=== PATIENT | female | born 1980 | race Caucasian/White ===

== ENCOUNTER 2018-07-23 16:08 | Outpatient (CLI) | payer MEDICAID, SELFPAY ==
[2018-07-23 16:50] LABS: Abs Immature Grans 0.01 k/cumm (0.0-0.09); Absolute Basophil Count 0.01 k/cumm (0.0-0.2); Absolute Eosinophil Count 0.07 k/cumm (0.0-0.7); Absolute Lymphocyte Count 2.35 k/cumm (1.2-3.4); Absolute Monocyte Count 0.52 k/cumm (0.11-0.7); Absolute Neutrophil Count 3.62 k/cumm (1.2-6.7); Basophils % 0.2; Eosinophils % 1.1; HCT 39.6 % (36.0-46.0); HGB 13.1 g/dL (12.0-15.5); Immature Grans % 0.2; Lymphocytes % 35.7; Mean Corp. HGB Concentration 33.1 g/dL (32.0-36.0); Mean Corpuscular Hemoglobin 28.5 pg (27.0-33.0); Mean Corpuscular Volume 86.1 fL (80-95); Mean Platelet Volume 11.1 fL (8.0-11.0); Monocytes % 7.9; Neutrophils % 54.9; Platelet Count 229 x1000/uL (130-400); RBC Distribution Width 12.9 % (11.7-14.6); White Blood Cell Count 6.58 k/cumm (4.4-10.8)
[2018-07-23 17:52] LABS: ALT 30 U/L (12-78); AST 13 U/L (15-37); Albumin 3.9 g/dL (3.4-5.0); Alkaline Phosphatase 49 U/L (46-116); BUN 21 mg/dL (7-18); Bilirubin, Total 0.4 mg/dL (0.2-1.0); CREATININE 0.88 mg/dL (0.55-1.02); Chloride 104 mmol/L (98-107); Cholesterol 147 mg/dL (50-200); Glucose 90 mg/dL (70-100); HDL Cholesterol 42 mg/dL (40-60); LDL CHOLESTEROL 89 mg/dL (<100); Potassium 3.9 mmol/L (3.5-5.1); Sodium 140 mmol/L (136-145); TSH (W/Ref FT4) 1.71 uIU/mL (0.358-3.74); Total Protein 7.1 g/dL (6.4-8.2); Triglyceride 72 mg/dL (30-150)
== END 2018-07-23 16:28 ==
PROVIDERS: PCP Nurse Practitioner Family; Visit Provider Nurse Practitioner Family
DX: E78.5 Hyperlipidemia, unspecified (principal); I10 Essential (primary) hypertension; R53.83 Other fatigue; E03.9 Hypothyroidism, unspecified
CPT/HCPCS: 36415; 80053; 80061; 83721; 84443; 85025

== ENCOUNTER 2018-08-04 00:51 | Outpatient (CLI) | payer MEDICAID, SELFPAY ==
--- NOTE | 2018-08-04 08:58 | DI.RAD_ITS ---
SYMPTOMS/DIAGNOSIS: RIB ASYMMETRY, M95.4, PT CONCERNED THAT LEFT SIDE LOOKS DIFFERENT THAN RIGHT PA AND LATERAL CHEST AND BILATERAL RIBS: The cardiac and mediastinal contours have a normal appearance. The lungs are well inflated and clear. The rib views show no evidence of fracture, lytic or blastic lesion. There is no evidence of fracture. There is mild dextrorotoscoliosis of the lumbar spine. IMPRESSION: Mild lumbar scoliosis. No abnormality of the chest or ribs is identified.
== END 2018-08-04 01:11 ==
PROVIDERS: PCP Nurse Practitioner Family; Visit Provider Nurse Practitioner
DX: M95.4 Acquired deformity of chest and rib (principal); M41.26 Other idiopathic scoliosis, lumbar region
CPT/HCPCS: 71046; 71110

== ENCOUNTER 2018-10-26 12:57 | Outpatient (CLI) | payer MEDICAID, SELFPAY ==
[2018-10-27 10:04] LABS: FSH 13.4 mIU/ml
== END 2018-10-26 13:17 ==
PROVIDERS: PCP Nurse Practitioner Family; Visit Provider Obstetrics & Gynecology
DX: N97.0 Female infertility associated with anovulation (principal)
CPT/HCPCS: 36415; 83001; 83520

== ENCOUNTER 2018-11-12 01:46 | Outpatient (CLI) | payer MEDICAID, SELFPAY ==
--- NOTE | 2018-11-12 12:51 | DI.US_ITS ---
SYMPTOMS/DIAGNOSIS: HEAVY MENSES, N92.0-EXCESSIVE AND FREQUENT MENSTRUATION WITH REGULAR CYCLE PELVIC ULTRASOUND: Transabdominal and transvaginal examination was performed. There are no priors. The uterus measures 8.8 cm long x 3.9 cm AP x 5.3 cm transverse. The endometrial stripe is within normal limits at 0.8 cm. The uterus is unremarkable. The ovaries are both visualized and are grossly unremarkable. They show normal blood flow. No evidence of torsion is seen. No free pelvic fluid or hydronephrosis is identified. IMPRESSION: Unremarkable pelvic ultrasound.
== END 2018-11-12 02:06 ==
PROVIDERS: PCP Nurse Practitioner Family; Visit Provider Obstetrics & Gynecology
DX: N92.0 Excessive and frequent menstruation with regular cycle (principal)
CPT/HCPCS: 76830; 76856

== ENCOUNTER 2019-07-08 10:49 | Outpatient (REF) | payer MEDICAID, SELFPAY ==
[2019-07-08 12:04] LABS: Kit/Specimen SENT
[2019-07-08 12:26] LABS: TSH (W/Ref FT4) 14.15 uIU/mL (0.36-3.74)
[2019-07-08 12:43] LABS: FREE T4 0.88 ng/dL (0.76-1.46)
[2019-07-08 13:14] LABS: *AMPHETAMINES SCREEN URINE Negative (Negative); *BARBITURATES SCREEN URINE Negative (Negative); *BENZODIAZEPINES SCREEN URINE Negative (Negative); Cannabinoids THC Negative (Negative); Cocaine Screen,Urine Negative (Negative); METHADONE URINE SCREEN Negative (Negative); OPIATES URINE SCREEN Negative (Negative); Tricyclic Antidepressants Negative (Negative)
[2019-07-08 13:16] LABS: Abs Immature Grans 0.02 k/cumm (0.0-0.09); Absolute Basophil Count 0.01 k/cumm (0.0-0.2); Absolute Eosinophil Count 0.09 k/cumm (0.0-0.7); Absolute Lymphocyte Count 3.19 k/cumm (1.2-3.4); Absolute Monocyte Count 0.57 k/cumm (0.11-0.7); Absolute Neutrophil Count 4.72 k/cumm (1.2-6.7); Basophils % 0.1; HCT 40.7 % (36.0-46.0); HGB 14.1 g/dL (12.0-15.5); Immature Grans % 0.2 %; Lymphocytes % 37.1; Mean Corp. HGB Concentration 34.6 g/dL (32.0-36.0); Mean Corpuscular Hemoglobin 29.6 pg (27.0-33.0); Mean Corpuscular Volume 85.3 fL (80-95); Mean Platelet Volume 10.5 fL (8.0-11.0); Monocytes % 6.6; Platelet Count 258 x1000/uL (130-400); RBC 4.77 m/cumm (4.00-5.20); RBC Distribution Width 12.4 % (11.7-14.6)
[2019-07-09 09:58] LABS: Varicella IgG Antibody Positive (See Note)
[2019-07-09 11:00] LABS: Rubella IgG Ab (UVM) Positive (See Note)
[2019-07-09 12:29] LABS: HIV-1/2 Ag & Ab Screen Negative (Negative); Hepatitis B Surface Ag Negative (Negative)
[2019-07-09 12:30] LABS: Hepatitis C Ab w Rflx HCV PCR Negative (Negative)
[2019-07-09 16:03] LABS: Syphilis Total Ab w/Reflex Nonreactive (Nonreactive)
[2019-07-12 15:40] LABS: Buprenorphine Negative; Norbuprenorphine Negative
[2019-07-12 15:41] LABS: Chlamydia Result Negative (Negative); GC Result Negative (Negative)
== END 2019-07-08 11:09 ==
LOC: LBN 10:49
PROVIDERS: PCP Nurse Practitioner Family; Visit Provider Advanced Practice Midwife
DX: Z34.91 Encounter for supervision of normal pregnancy, unspecified, first trimester (principal); Z11.3 Encounter for screening for infections with a predominantly sexual mode of transmission; Z11.4 Encounter for screening for human immunodeficiency virus [HIV]; Z11.59 Encounter for screening for other viral diseases; Z01.84 Encounter for antibody response examination
CPT/HCPCS: 80307; 86787; 86803; 86850; 86900; 86901; 87340; 87389; 87491; 87591; 84439; 84443; 85025; 86762; 86780; 87086

== ENCOUNTER 2019-08-12 14:58 | Outpatient (CLI) | payer MEDICAID, SELFPAY ==
[2019-08-17 11:23] LABS: AFP 39.3 ng/mL; Calculated age at EDD 39 years; Cigarette smoking status non-Smoker; GA used in risk estimate Scan estimate; IVF Pregnancy No; Initial or repeat testing Initial testing; Insulin dependent diabetes No; Maternal Weight 183 lbs; Maternal Weight 83 kg; Number of Fetuses 1; Physician Phone Number 802-748-7300; Prev Pregnancy w/NTD No; RECOMMENDED FOLLOW UP None.; Results Summary Normal risk
--- NOTE | 2019-08-17 14:58 | PDOC.ANES ---
Date of service: 08/17/19 Time of Service: 08:20 Anesthesia Note Report Anesthesia Note: I reached out to Liz today to discuss her previous history. She is scheduled for a 4th and has concerns related to her last having to go to general anesthesia. her previous section was a multiple attempt/position spinal that eventually yielded CSF flow. Medication was given, but the spinal never really set up (she did seem to have effect from the duramorph). She stated that this is the first section that she had to have general for and that all others where successful under spinal anesthesia. We briefly discussed how spinals do fail and how we hope to minimize the risk of this in the future. Discussed the idea of getting her set and in position for the spinal and then ultrasound and marking out her back to aid in the placement. We also discussed that the same thing (getting CSF flow, medication being injected, but the spinal not setting up) can still happen and that sometimes we can not reattempt the spinal due to the risk of high spinal and general may still have to occur. She was encouraged to reach out to us or Dr. Santos if she any further questions.
== END 2019-08-12 15:18 ==
PROVIDERS: Advanced Practice Midwife; PCP Nurse Practitioner Family; Visit Provider Obstetrics & Gynecology
DX: Z34.92 Encounter for supervision of normal pregnancy, unspecified, second trimester (principal); Z36.89 Encounter for other specified antenatal screening
CPT/HCPCS: 82105

== ENCOUNTER 2019-08-18 14:05 | Outpatient (CLI) | payer MEDICAID, SELFPAY ==
[2019-08-18 15:42] LABS: FREE T4 0.98 ng/dL (0.76-1.46); TSH 2.81 uIU/mL (0.36-3.74)
== END 2019-08-18 14:25 ==
PROVIDERS: Advanced Practice Midwife; PCP Nurse Practitioner Family; Visit Provider Obstetrics & Gynecology
DX: E03.9 Hypothyroidism, unspecified (principal)
CPT/HCPCS: 84439; 84443

== ENCOUNTER 2019-09-15 01:15 | Outpatient (CLI) | payer MEDICAID, SELFPAY ==
--- NOTE | 2019-09-15 08:30 | DI.US_ITS ---
EXAM: US AXILLA LT CLINICAL HISTORY: left axillary lump,22.30 TECHNIQUE: Ultrasound performed using standard protocol. COMPARISON: US US pelvis from 11/12/2018 US US BREAST LT COMPLETE from 09/15/2019 FINDINGS: Ultrasound examination of the left breast and left axilla are interpreted in conjunction. Patient re portedly has a questionable palpable abnormality left axilla. This does not correspond to a discrete mass although the possibility of a lipoma at this site is raised. No breast mass identified on scan edi of left breast. All 4 quadrants were interrogated. IMPRESSION: No mass identified in left breast or axilla. The palpable abnormality of the left axillary region ma y correspond to a lipoma but this is a questionable finding. DATA REPOSITORY:
== END 2019-09-15 01:35 ==
PROVIDERS: PCP Nurse Practitioner Family; Visit Provider Obstetrics & Gynecology
DX: R22.32 Localized swelling, mass and lump, left upper limb (principal)
CPT/HCPCS: 76642

== ENCOUNTER 2019-10-19 02:07 | Outpatient (CLI) | payer MEDICAID, SELFPAY ==
[2019-10-19 12:43] LABS: Glucose,1 Hr (Glucola) 90 mg/dL (80-140)
== END 2019-10-19 02:27 ==
PROVIDERS: PCP Nurse Practitioner Family; Visit Provider Obstetrics & Gynecology
DX: Z34.90 Encounter for supervision of normal pregnancy, unspecified, unspecified trimester (principal)
CPT/HCPCS: 36415; 82950

== ENCOUNTER 2019-11-19 03:30 | Outpatient (CLI) | payer MEDICAID, SELFPAY ==
[2019-11-19 12:31] LABS: TSH (W/Ref FT4) 3.69 uIU/mL (0.36-3.74)
== END 2019-11-19 03:50 ==
PROVIDERS: PCP Nurse Practitioner Family; Visit Provider Obstetrics & Gynecology Gynecology
DX: E03.9 Hypothyroidism, unspecified (principal); Z34.90 Encounter for supervision of normal pregnancy, unspecified, unspecified trimester
CPT/HCPCS: 36415; 84443

== ENCOUNTER 2019-11-19 03:58 | Outpatient (CLI) | payer MEDICAID, SELFPAY ==
--- NOTE | 2019-11-19 06:45 | DI.US_ITS ---
EXAM: US OB VENKATESH WEIGHT CLINICAL HISTORY: TREATED CHRONIC HYPERTENSION,I10,Z34.83 TECHNIQUE: Ultrasound performed using standard protocol. COMPARISON: US US BREAST LT COMPLETE from 09/15/2019 FINDINGS: Ob ultrasound was performed utilizing 3rd trimester protocol. biometry is consistent with gest ational age of 32 weeks 6 days and an EDC of January 07. Estimated weight is 2039 grams which is at the 54th percentile for predicted gestational age. Placenta is posterior with no placenta previa. There is visually a normal quantity of amniotic fluid and the VENKATESH is 15. Fetus is in cephalic presentation. heart rate 162 BPM. IMPRESSION: DATA REPOSITORY:
== END 2019-11-19 04:18 ==
PROVIDERS: PCP Nurse Practitioner Family; Visit Provider Obstetrics & Gynecology Gynecology
DX: Z34.83 Encounter for supervision of other normal pregnancy, third trimester (principal); I10 Essential (primary) hypertension
CPT/HCPCS: 76816

== ENCOUNTER 2019-11-25 11:54 | Outpatient (CLI) | payer MEDICAID, SELFPAY | END 2019-11-25 12:14 | PROVIDERS: PCP Nurse Practitioner Family; Visit Provider Obstetrics & Gynecology | DX: R69 Illness, unspecified (principal) | CPT/HCPCS: 80053; 85027; 86850; 86900; 86901; 82565; 84156; 84550 ==

== ENCOUNTER 2019-11-25 17:15 | Outpatient (REF) | payer MEDICAID, SELFPAY ==
[2019-11-25 14:32] LABS: HCT 36.2 % (36.0-46.0); HGB 12.2 g/dL (11.2-15.7); MCH 29.8 pg (27.0-33.0); MCHC 33.7 % (32.0-36.0); MCV 88.5 fL (80-95); MPV 10.7 fL (8.0-11.0); Platelet Count 209 10^3/uL (130-400); RBC 4.09 10^6/uL (3.93-5.22); RDW-SD 38.5 fL; WBC 7.95 10^3/uL (4.4-10.8)
[2019-11-25 14:45] LABS: ALT 62 U/L (14-59); AST 39 U/L (15-37); Albumin 2.7 g/dL (3.4-5.0); Alkaline Phosphatase 70 U/L (46-116); Anion Gap 11.5 mmol/L (3-11); BUN 12 mg/dL (7-18); Bilirubin, Total 0.2 mg/dL (0.2-1.0); CO2 22.5 mmol/L (21.0-32.0); CREATININE 0.54 mg/dL (0.55-1.02); Calcium 8.4 mg/dL (8.5-10.1); Chloride 104 mmol/L (98-107); Glucose 108 mg/dL (74-106); Potassium 3.5 mmol/L (3.5-5.1); Sodium 138 mmol/L (136-145); Uric Acid 2.6 mg/dL (2.6-6.0)
[2019-11-25 15:16] LABS: PROTEIN 28.3 mg/dL
[2019-11-25 15:34] LABS: COMMENT (LAB VIEW ONLY) 130.42 mg/dL; Prot/Crea Ur Ratio 0.21
== END 2019-11-25 17:35 ==
LOC: LBN 17:15
PROVIDERS: PCP Nurse Practitioner Family; Visit Provider Obstetrics & Gynecology
DX: I10 Essential (primary) hypertension (principal); Z34.93 Encounter for supervision of normal pregnancy, unspecified, third trimester
CPT/HCPCS: 80053; 85027; 86850; 86900; 86901; 82565; 84156; 84550

== ENCOUNTER 2019-11-27 09:26 | Outpatient (CLI) | payer MEDICAID, SELFPAY ==
[2019-11-27 10:50] LABS: Abs Immature Grans 0.09 10^3/uL (0.0-0.06); Absolute Basophil Count 0.01 10^3/uL (0.0-0.2); Absolute Lymphocyte Count 2.13 10^3/uL (1.2-3.4); Absolute Monocyte Count 0.52 10^3/uL (0.1-0.8); Absolute Neutrophil Count 4.91 10^3/uL (1.2-6.7); Basophils % 0.1; Eosinophils % 1.3; HCT 36.2 % (36.0-46.0); HGB 11.8 g/dL (11.2-15.7); Immature Grans % 1.2; Lymphocytes % 27.4; MCH 29.4 pg (27.0-33.0); MCHC 32.6 % (32.0-36.0); MPV 10.3 fL (8.0-11.0); Monocytes % 6.7; Neutrophils % 63.3; Nucleated RBC 0 %; Platelet Count 180 10^3/uL (130-400); RBC 4.02 10^6/uL (3.93-5.22); RDW 12.1 % (11.7-14.6); RDW-SD 39.3 fL; WBC 7.76 10^3/uL (4.4-10.8)
[2019-11-27 11:03] LABS: ALT 49 U/L (14-59); AST 24 U/L (15-37); Albumin 2.4 g/dL (3.4-5.0); Alkaline Phosphatase 64 U/L (46-116); Anion Gap 8.9 mmol/L (3-11); BUN 11 mg/dL (7-18); Bilirubin, Total 0.2 mg/dL (0.2-1.0); CO2 23.1 mmol/L (21.0-32.0); CREATININE 0.62 mg/dL (0.55-1.02); Calcium 7.9 mg/dL (8.5-10.1); Chloride 104 mmol/L (98-107); Glucose 135 mg/dL (74-106); Potassium 3.4 mmol/L (3.5-5.1); Sodium 136 mmol/L (136-145); Total Protein 5.9 g/dL (6.4-8.2); Uric Acid 2.4 mg/dL (2.6-6.0)
[2019-11-27 11:28] LABS: COMMENT (LAB VIEW ONLY) 126.73 mg/dL; PROTEIN 20.5 mg/dL; Prot/Crea Ur Ratio 0.16
== END 2019-11-27 09:46 ==
PROVIDERS: Obstetrics & Gynecology Gynecology; PCP Nurse Practitioner Family; Visit Provider Obstetrics & Gynecology
DX: O13.3 Gestational [pregnancy-induced] hypertension without significant proteinuria, third trimester (principal)
CPT/HCPCS: 36415; 80053; 59025; 82565; 84156; 84550; 85025

== ENCOUNTER 2019-11-29 14:40 | Outpatient (CLI) | payer MEDICAID, SELFPAY | END 2019-11-29 15:00 | PROVIDERS: PCP Nurse Practitioner Family; Visit Provider Obstetrics & Gynecology Gynecology | DX: O13.3 Gestational [pregnancy-induced] hypertension without significant proteinuria, third trimester (principal) | CPT/HCPCS: 59025 ==

== ENCOUNTER 2019-12-02 16:07 | Outpatient (REF) | payer MEDICAID, SELFPAY ==
[2019-12-02 17:40] LABS: HGB 12.7 g/dL (11.2-15.7); MCH 29.8 pg (27.0-33.0); MCHC 33.4 % (32.0-36.0); MCV 89.2 fL (80-95); MPV 11.1 fL (8.0-11.0); Platelet Count 230 10^3/uL (130-400); RBC 4.26 10^6/uL (3.93-5.22); RDW 12.1 % (11.7-14.6); RDW-SD 39.2 fL; WBC 9.62 10^3/uL (4.4-10.8)
[2019-12-02 17:46] LABS: PROTEIN 19.4 mg/dL
[2019-12-02 17:49] LABS: ALT 44 U/L (14-59); AST 21 U/L (15-37); Albumin 2.7 g/dL (3.4-5.0); Alkaline Phosphatase 72 U/L (46-116); Anion Gap 7.2 mmol/L (3-11); BUN 14 mg/dL (7-18); Bilirubin, Total 0.2 mg/dL (0.2-1.0); CO2 23.8 mmol/L (21.0-32.0); CREATININE 0.63 mg/dL (0.55-1.02); Calcium 8.1 mg/dL (8.5-10.1); Chloride 101 mmol/L (98-107); Glucose 77 mg/dL (74-106); Potassium 3.9 mmol/L (3.5-5.1); Sodium 132 mmol/L (136-145); Total Protein 6.1 g/dL (6.4-8.2)
[2019-12-02 17:50] LABS: COMMENT (LAB VIEW ONLY) 94.77 mg/dL
== END 2019-12-02 16:27 ==
LOC: LBN 16:07
PROVIDERS: PCP Nurse Practitioner Family; Visit Provider Obstetrics & Gynecology
DX: I10 Essential (primary) hypertension (principal)
CPT/HCPCS: 80053; 85027; 82565; 84156

== ENCOUNTER 2019-12-13 01:16 | Outpatient (CLI) | payer MEDICAID, SELFPAY ==
--- NOTE | 2019-12-13 07:00 | DI.US_ITS ---
EXAM: US OB VENKATESH WEIGHT CLINICAL HISTORY: Growth and VENKATESH,ADVANCED MATERNAL AGE,I10,Z34.90. TECHNIQUE: Transabdominal obstetrical ultrasound performed. COMPARISON: US US OB VENKATESH WEIGHT from 11/19/2019 FINDINGS: Transabdominal obstetrical ultrasound performed. FINDINGS: Number of fetuses: One. position: Cephalic. Placental location: Fundal and to the right. No evidence of previa. BIOMETRIC DATA: EFW: 3081 grms 83% Composite Age: 37 weeks 2 days EDC: 01/01/2020 Heart Rate: 141BPM Amniotic fluid index: 8 cm. Visually, amount of fluid is within normal limits. IMPRESSION: 1. Single live intrauterine gestation as above. 2. Estimated weight is 3081gms. 3. Amniotic fluid index is 8 cm. Visually within normal limits. DATA REPOSITORY:
== END 2019-12-13 01:36 ==
PROVIDERS: PCP Nurse Practitioner Family; Visit Provider Obstetrics & Gynecology
DX: Z34.93 Encounter for supervision of normal pregnancy, unspecified, third trimester (principal); I10 Essential (primary) hypertension
CPT/HCPCS: 76816

== ENCOUNTER 2019-12-13 09:23 | Outpatient (CLI) | payer MEDICAID, SELFPAY ==
[2019-12-13 10:02] VITALS: BP 122/81; PULSE 72; TEMP 36.6
[2019-12-13 10:06] VITALS: BP 122/81; PULSE 72
[2019-12-13 10:44] VITALS: BP 122/81; PULSE 72; TEMP 36.6
--- NOTE | 2019-12-13 10:44 | W.OBNST ---
Date of service: 12/13/19 Time of Service: 10:45 NST Evaluation Reason for NST Reasons for Nonstress Test: GESTATIONAL HYPERTENSION and ADVANCED MATERNAL AGE Gestational Age Gestational Age in Weeks and Days: 35 Weeks and 5Days Test and Monitor Explained Test/Monitor Explained: Test Explained, Monitor Explained and Patient Verbalized Understanding Vital Signs Blood Pressure: 122/81 Pulse: 72 Temperature: 97.9 F Urine Results Urine Protein: Negative Urine Ketones: Negative Urine Glucose: Negative Urine Blood: Negative NST Information Date on Monitor: 12/13/19 Time on Monitor: 09:48 Date off Monitor: 12/13/19 Time off Monitor: 10:17 Total Time on Monitor: 29 NST Interventions: None NST Evaluation Patient States Movement: Present Variability: Moderate 6-25 bpm Accelerations: 15x15 Decelerations: None NST Results: Reactive Note NST Note Note: Patient seen on the birthing center for NST due to advanced maternal age, and chronic hypertension. She has a reactive category 1 strip today. visit was also done including group B strep culture. NST Reviewed and Verified by: Heidy Santos
== END 2019-12-13 10:33 ==
LOC: BCD 09:24 → OBS 09:51
PROVIDERS: PCP Nurse Practitioner Family; Visit Provider Obstetrics & Gynecology
DX: O09.523 Supervision of elderly multigravida, third trimester (principal); O10.013 Pre-existing essential hypertension complicating pregnancy, third trimester; Z3A.35 35 weeks gestation of pregnancy
CPT/HCPCS: 59025; 76816; 87081

== ENCOUNTER 2019-12-16 08:05 | Outpatient (CLI) | payer MEDICAID, SELFPAY ==
[2019-12-16 10:14] VITALS: BP 128/80; PULSE 69; TEMP 37.1
[2019-12-16 10:27] VITALS: BP 128/80; PULSE 69
[2019-12-16 10:39] VITALS: BP 128/80; PULSE 69; TEMP 37.1
--- NOTE | 2019-12-16 10:39 | W.OBNST ---
Date of service: 12/16/19 Time of Service: 10:39 NST Evaluation Reason for NST Reasons for Nonstress Test: GESTATIONAL HYPERTENSION Gestational Age Gestational Age in Weeks and Days: 36 Weeks and 1Days Test and Monitor Explained Test/Monitor Explained: Test Explained, Monitor Explained and Patient Verbalized Understanding Vital Signs Blood Pressure: 128/80 Pulse: 69 Temperature: 98.8 F NST Information Date on Monitor: 12/16/19 Time on Monitor: 10:15 Date off Monitor: 12/16/19 NST Interventions: PO Hydration NST Evaluation Patient States Movement: Present FHR Baseline: 150 Variability: Moderate 6-25 bpm Accelerations: 15x15 Decelerations: None NST Results: Reactive Note NST Note Note: Reactive NST, category 1 strip, normal blood pressure. Follow-up as scheduled NST Reviewed and Verified by: Heidy Santos
== END 2019-12-16 10:40 | disposition home or self-care (01) ==
LOC: BCD 08:05 → OBS 09:57
PROVIDERS: PCP Nurse Practitioner Family; Visit Provider Obstetrics & Gynecology
DX: O13.3 Gestational [pregnancy-induced] hypertension without significant proteinuria, third trimester (principal); Z3A.36 36 weeks gestation of pregnancy
CPT/HCPCS: 59025

== ENCOUNTER 2019-12-17 07:29 | Outpatient (CLI) | payer MEDICAID, SELFPAY ==
[2019-12-18 23:48] LABS: COVID-19 RT-PCR Result NEGATIVE (Negative)
== END 2019-12-17 07:49 ==
PROVIDERS: PCP Nurse Practitioner Family; Visit Provider Obstetrics & Gynecology
DX: Z01.818 Encounter for other preprocedural examination (principal)
CPT/HCPCS: U0003

== ENCOUNTER 2019-12-20 02:39 | Outpatient (CLI) | payer MEDICAID, SELFPAY ==
[2019-12-20 09:41] LABS: Abs Immature Grans 0.19 10^3/uL (0.0-0.06); Absolute Basophil Count 0.01 10^3/uL (0.0-0.2); Absolute Eosinophil Count 0.08 10^3/uL (0.0-0.7); Absolute Lymphocyte Count 2.24 10^3/uL (1.2-3.4); Absolute Monocyte Count 0.74 10^3/uL (0.1-0.8); Absolute Neutrophil Count 5.86 10^3/uL (1.2-6.7); Basophils % 0.1; Eosinophils % 0.9; HCT 38.2 % (36.0-46.0); HGB 12.5 g/dL (11.2-15.7); Immature Grans % 2.1; Lymphocytes % 24.6; MCH 29.3 pg (27.0-33.0); MCHC 32.7 % (32.0-36.0); MCV 89.7 fL (80-95); MPV 10.1 fL (8.0-11.0); Monocytes % 8.1; Neutrophils % 64.2; Nucleated RBC 0 %; Platelet Count 190 10^3/uL (130-400); RBC 4.26 10^6/uL (3.93-5.22); RDW 12.5 % (11.7-14.6); RDW-SD 40.2 fL; WBC 9.12 10^3/uL (4.4-10.8)
== END 2019-12-20 02:59 ==
PROVIDERS: PCP Nurse Practitioner Family; Visit Provider Obstetrics & Gynecology
DX: O10.013 Pre-existing essential hypertension complicating pregnancy, third trimester; O09.523 Supervision of elderly multigravida, third trimester; Z01.818 Encounter for other preprocedural examination; Z01.812 Encounter for preprocedural laboratory examination; O34.211 Maternal care for low transverse scar from previous cesarean delivery
CPT/HCPCS: 36415; 85025

== ENCOUNTER 2019-12-22 06:20 | Inpatient (IN) | payer MEDICAID, SELFPAY ==
--- NOTE | 2019-12-20 13:19 | HPE_ITS ---
Date of service: 12/20/19 Time of Service: 13:19 Assessment and Plan Assessment and plan (1) Advanced maternal age (AMA) in : Status: Acute Assessment and plan: Patient is a 39-year-old female 4 para 3 with 3 prior sections. She also has a known history of hypothyroidism and chronic hypertension for which she has been on labetalol. Towards end of her menses she has had somewhat elevated blood pressures and serial laboratory studies. She has been in surveillance and home off work for the past 2 to 3 weeks. She will be delivered at 37 weeks gestation due to the previous factors including advanced maternal age and chronic hypertension. The risks benefits and alternatives of section were explained to the patient full informed consent had been obtained. She will be taken the operating room on December 22, 2019 for repeat section. (2) Hypothyroidism: Status: Chronic Assessment and plan: Stable Qualifiers: Hypothyroidism type: unspecified Qualified Code(s): E03.9 - Hypothyroidism, unspecified (3) Essential hypertension: Status: Chronic Assessment and plan: Continue on labetalol 100 mg twice daily. We will continue to carefully monitor her blood pressure in the antepartum and periods. OB-HPI Labor/Delivery History of Present Illness Reason for Visit: electrician shop Complaint: Other (Need for repeat section). [place] Calculator Estimated Delivery Date Method Current WG Current Estimate 01/12/20 LMP (Certain) 36w 5d Other Estimates 01/13/20 Ultrasound #1 36w 4d History of Present Expected Delivery Route/Plan Repeat C/S (#4) - MD leon. BB History of prior section x3 and gestational hypertension will be delivered at 37 weeks gestation due to the previous Specific Issues/Plan -AMA. Desires [place]. - Results nml x3, male -HTN. Pt instructed to continue HCTZ until she has insurance. Will change to Labetalol.08/04 08/04 - Labetalol 100 mg BID escribed -Hypothyroid- S/P Radioactive iodine , history elevated TPO- TSH 14.15- per Dr. Stephens, Levothyroxine increased 200 mcg to 250 mcg al [facility] US scheduled for 08/25/19 TSH, T4 ordered 08/16 -Known CF carrier screen negative -Anesthesia consult this 2/2 requiring general anesthesia with previous . No special plans at time of delivery Review of Systems Narrative: Patient has a baby that is moving and active. She has the usual discomforts of . She denies signs or symptoms of preeclampsia Eyes Eyes: Reports system reviewed and no additional complaints, except as documented Cardiovascular Cardiovascular: Reports system reviewed and no additional complaints, except as documented Respiratory Respiratory: Reports system reviewed and no additional complaints, except as documented [facility] Medical History Adult BMI > 30 Essential hypertension (02/16/13) Hyperlipidemia (09/17/17) Resolved with 07/2018 lipid panel Hypertension Dx 2008 - d/c'd Lisonopril/HCTZ with this Hypothyroid in , antepartum s/p Radioactive Iodine Ablation. Initial dose of Synthroid in 175mcg. Increased to 225mcg on 08/18/13 Hypothyroidism (02/16/13) VAUGHN age 19 08/24/13 pt states dose is 200mcg/day. TSH 9.6. Additional dose of 25mcg/day ordered. Needs TSH in 6w. TPO antibodies (+), requiring high dose of levothyroxine Low back pain (02/16/13) Since 20s; 10/04/2015 B/L L5-S1 facet inj (Dr. 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 Silveira) Lump of axilla Pre-op testing Surgical History [place]enoidectomy section 2000 [place]. Breech 2008 [place]. 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 Current gender identity: female What type of physical activity do you participate in: walking, aerobic, regular exercise, weight lifting and resistance training Duration: 45-60 minutes/day Frequency: daily Seatbelt use: always Helmet use: Yes Drive intox or ride w/intox cdl company driver: No Water heater temp set <120 deg: Yes Working smoke detector in home: Yes Fire extinguisher in home: Yes Carbon monox detector in home: Yes Firearms in home: Yes History History 4 Para 3 Hx # Term Pregnancies 3 Multiple births 0 Hx # Pregnancies 0 Ectopic pregnancies 0 AB induced 0 Hx Number of Living Children 3 AB spontaneous 0 Past Pregnancies Del. Date GA/Weeks # Outcome Route Wgt Sex Labor Lgth Anesthes ia Location Prov Complic 04/28/00 39 No Successful 7 lb 5 oz Male w/o ,breech [place] 01/09/09 39 No Successful 8 lb 8 oz [place] 0 [place] 02/02/14 39 No Successful 7 lb 5 oz Female [address] Lombardi Delivery Date: 04/28/00 c/s for breech. [place] [place] Delivery Date: 01/09/09 repeat c/s. [place] [place] Delivery Date: 02/02/14 repeat c/s. Spinal not effective and general anesthesia Lexii Stephens Home Medications and Allergies Home Medications Medication Instructions Recorded Confirmed Type ghxeywn-guvpcgvlkccnq-ftxneold 1 ea PO PRN cap 02/22/15 12/08/19 History [Excedrin Migraine Caplet] prenat.vits,silvia,tvw-wymn-xzwkb 1 tab PO DAILY #90 tab-cap 10/21/18 12/08/19 Rx labetalol 100 mg tablet 100 mg PO BID #60 tab 08/05/19 12/08/19 Rx cholecalciferol (vitamin D3) 10 20 mcg PO DAILY tab 08/12/19 12/08/19 History mcg (400 unit) chewable tablet aspirin 81 mg chewable tablet 81 mg PO DAILY 08/31/19 12/08/19 History levothyroxine 200 mcg tablet 200 mcg PO DAILY #90 tab-cap 09/13/19 12/08/19 Rx melatonin 5 mg capsule mg PO PRN cap 09/13/19 12/08/19 History levothyroxine 50 mcg capsule 50 mcg PO DAILY #60 cap 11/08/19 12/08/19 Rx bupropion HCl 100 mg tablet,12 hr 100 mg PO DAILY #30 tab 11/19/19 12/08/19 Rx sustained-release Allergies Allergy/AdvReac Type Severity Reaction Status Date / Time No Known Drug Allergies Allergy Verified 12/08/19 15:02 Exam Detailed Labor and Delivery Exam Angulo Score: Cervical Points Exam 0 1 2 3 Dilation Closed 1-2cm 3-4 cm 5-6cm Effacement 0-30% 40-50% 60-70% 80% Consistency Firm Medium Soft Station -3 -2 -1,0 +1,+2 Position Posterior Mid Anterior Detailed HEENT Exam Head: Present normocephalic Detailed Neck Exam Neck exam general surgery: Present supple and full ROM Detailed Respiratory Exam Respiratory: Absent rales, rhonchi and wheezes Detail Cardiovascular Exam Cardiovascular: Present S1 and S2; Absent murmur Extremities Exam Extremities Exam: Normal Skin Exam Skin Exam: Normal Neurological Exam Neurological Exam: Normal Psychiatric Exam Psychiatric Exam: Normal Results Results Blood Type: A+ Rubella Status: Immune Varicella Immunity: Immune Risk Assessment Risk for Shoulder Dystocia Historical/Initial OB: NEGATIVE FOR: Pelvic Abnormality, Pre- BMI>30, Previous Shoulder Dystocia or Previous Macrosomia Increased Risk?: No (@ iob) Counseling: s/p c/s x3 will have repeat. al Risk for Pre-Eclampsia Daily Dose ASA Indicated: Yes (h/o chronic htn on meds accepts low dose asa. al) Date Initiated/Initials: 07/08/19 Yes, if one or more: POSTIVE FOR: Chronic HTN; NEGATIVE FOR: Hx Pre-E/Gest HTN, Multiple Gestation, Pre-gestational DM, Renal Disease, Systemic Lupus or APA Syndrome Yes, if 2 or more: POSITIVE FOR: Age>= 35 yrs; NEGATIVE FOR: Nulliparity, >10yr btwn pregnancies, BMI>30, ethinicty, Mother/Sister w/ Pre-E or Previous IUGR Risk for Post- Hemorrhage Initial: NEGATIVE FOR: Multiple Gestation, Previous PPH, Known Clotting Deficiency, Grand Multiparity or Anticoagulation At Risk?: No (@ IOB 07/08/19) Interventions: Patient is at risk for bleeding due to the fact that this will be her fourth section Risks Reviewed Risks Reviewed Upon Admission: Yes
[2019-12-22] VITALS (14 sets, daily range): BP systolic 115–146; BP diastolic 67–98; PULSE 64–82; RESP 13–20; TEMP 36.4–36.7; O2SAT 95–100
[2019-12-22] MEDS: Lactated Ringers 1,000 ML 125 ML IV ×2 (06:48→08:16)
[2019-12-22] MEDS: AZITHROMYCIN 500 MG in Normal Saline 250 ML 250 MG IVPB (06:48)
[2019-12-22] MEDS: Sodium Citrate 30 ML CUP (07:09)
[2019-12-22] MEDS: Oxytocin/Normal Saline 30 UNIT/500 ML BAG 334 UNITS IV (08:30)
--- NOTE | 2019-12-22 08:44 | W.PM.OBCSECT ---
Date of service: 12/22/19 Time of Service: 08:44 Operative Note Operative Note Delivery Method: Scheduled DATE OF PROCEDURE: 12/22/19 PRE-OP DIAGNOSES: Prior C/C x 3, AMA, HTN POST-OP DIAGNOSES: same PROCEDURE: Repeat Section SURGEON: Heidy Santos Assisting Surgeon: Pierce Martin Anesthesia: spinal Estimated blood loss (mL): 300 Pathology: none sent Complications: None Patient was transported to: floor Patient's condition: stable Indications: Prior section x3. Advanced maternal age. Chronic hypertension. Findings: Normal-appearing tubes, ovaries, uterus. Apgars 9 and 9. Procedure Description: Patient is a 4 para 3 with 3 prior sections pathology pending. Her office which is complicated by chronic hypertension and mildly elevated blood pressures transiently . She requested a repeat section. Surgery The risks, benefits, and alternatives to the procedure were explained to the patient including injury to surrounding organs, thromboembolism, risk of anesthesia, potential for hysterectomy. Full informed consent was obtained. She was placed in seated position spinal anesthesia administered tested, and found to be adequate.. She was in placed supine position prepped and draped in usual sterile fashion. Post spinal placement heart tones were obtained at 140. Mascorro catheter had been inserted as were pneumatic compression stockings used. She did receive antibiotic prophylaxis with both cephalexin and Ancef prior to procedure. Incision was made through the previous Pfannenstiel incision. Underlying fascia which was nicked in midline extended laterally. Fascia was from rectus muscle. Rectus muscles identified split midline tented up and entered sharply. Peritoneum was smooth and regular with no underlying adhesions. Peritoneal incision was extended superiorly and anteriorly and a bladder blade was inserted. Vesicouterine peritoneum identified, tented up, and entered sharply. A bladder flap created with meticulous sharp dissection. Anterior lower uterine segment was entered sharply with scalpel and extended bluntly laterally fluid was clear. Fetus was delivered from the vertex position shoulders followed with ease. There is no evidence of nuchal cord. Three-vessel cord was noted, clamped and cut. The baby was born handed off to the waiting software clerk to be placed skin to skin with mom. At this point placenta was expressed from the uterus uterus exteriorized cleared of all clot and debris. uterine incision was then closed using 0 Vicryl suture in a second layer of 0 Vicryl in imbricating fashion was placed. Inspection uterus tubes and ovaries normal. uterine incision was hemostatic. Uterus was returned to the abdomen and was hemostatic. At this point the fascial incision was closed using 0 Vicryl suture running fashion. Subcu space was closed with 3-0 Vicryl. Skin edge reapproximated with 4-0 Monocryl suture in subcuticular fashion. Steri-Strips were placed. Patient was taken from the OR to labor and delivery to her room in stable condition Mascorro catheter draining clear yellow urine. Complications: None apparent EBL: 300 cc Findings: Delivered viable male infant Apgars 9 and 9. Weight to be determined. [place] Gestational Age in Weeks/Days: 37 Weeks and 0 Days Infant Gender: Male
[2019-12-22] MEDS: Ondansetron O.D.T. 4 MG TABEF PO (13:13)
[2019-12-22] MEDS: Ibuprofen 600 MG TAB PO (13:53)
[2019-12-22] MEDS: Labetalol 100 MG TAB PO (22:15)
[2019-12-22] MEDS: oxyCODONE 5 mg/Acetaminophen 325 mg TAB PO (22:47)
[2019-12-23] MEDS: Ibuprofen 600 MG TAB PO ×3 (04:25→19:38)
[2019-12-23 04:43] VITALS: BP 121/77; PULSE 76; RESP 16; TEMP 36.3; O2SAT 96
[2019-12-23] MEDS: Levothyroxine 200 MCG TAB PO (06:13)
[2019-12-23] MEDS: Levothyroxine 50 MCG TAB PO (06:13)
[2019-12-23 07:40] VITALS: BP 132/86; PULSE 70; RESP 20; TEMP 36.6; O2SAT 97
[2019-12-23 07:49] LABS: Abs Immature Grans 0.15 10^3/uL (0.0-0.06); Absolute Basophil Count 0.03 10^3/uL (0.0-0.2); Absolute Eosinophil Count 0.07 10^3/uL (0.0-0.7); Absolute Lymphocyte Count 2.75 10^3/uL (1.2-3.4); Absolute Monocyte Count 0.77 10^3/uL (0.1-0.8); Absolute Neutrophil Count 6.84 10^3/uL (1.2-6.7); Basophils % 0.3; Eosinophils % 0.7; HCT 34.6 % (36.0-46.0); HGB 11.6 g/dL (11.2-15.7); Immature Grans % 1.4; Lymphocytes % 25.9; MCH 29.5 pg (27.0-33.0); MCHC 33.5 % (32.0-36.0); MPV 10.2 fL (8.0-11.0); Monocytes % 7.3; Neutrophils % 64.4; Nucleated RBC 0 %; Platelet Count 198 10^3/uL (130-400); RBC 3.93 10^6/uL (3.93-5.22); RDW 12.5 % (11.7-14.6); WBC 10.61 10^3/uL (4.4-10.8)
[2019-12-23] MEDS: buPROPion-CR 100 MG TABCR PO (07:55)
[2019-12-23] MEDS: Prenatal Multivitamin w/CA,FE TAB 1 TAB PO (07:55)
[2019-12-23] MEDS: Labetalol 100 MG TAB PO ×2 (07:56→19:39)
--- NOTE | 2019-12-23 10:18 | OBPPV_ITS ---
Date of service: 12/23/19 Time of Service: 10:19 Assessment and Plan Assessment and plan (1) S/P repeat low transverse : Status: Acute Assessment and plan: Satisfactory postop course. May shower today and remove dressing. Continue routine care. Subjective Subjective Patient comments: No complaints and Pain well controlled [place] baby status: Doing well and Nursing well Exam Physical Exam Vital signs: Temp Pulse Resp BP Pulse Ox 97.3 F L 76 16 121/77 96 12/23/19 04:43 12/23/19 04:43 12/23/19 04:43 12/23/19 04:43 12/23/19 04:43 Results Hemoglobin/Hematocrit: Hgb 11.6 g/dL (11.2-15.7) 12/23/19 07:30 Hct 34.6 % (36.0-46.0) L 12/23/19 07:30 Abnormal Lab Findings: Abnormal Labs 12/23/19 07:30 Hct 34.6 L Absolute Neutrophils 6.84 H
[2019-12-23 11:50] VITALS: BP 143/93; PULSE 69; RESP 20; TEMP 36.4; O2SAT 98
[2019-12-23] MEDS: Acetaminophen 325 MG TAB 650 MG PO ×2 (11:55→19:39)
[2019-12-23 14:45] VITALS: BP 133/86; PULSE 73; RESP 16; TEMP 36.7; O2SAT 96
[2019-12-23 19:48] VITALS: BP 157/98; PULSE 76; RESP 18; TEMP 36.5; O2SAT 96
[2019-12-24 00:10] VITALS: BP 134/87; PULSE 72; RESP 18; TEMP 36.5; O2SAT 96
[2019-12-24 05:00] VITALS: BP 149/93; PULSE 72; RESP 20; TEMP 36.9
[2019-12-24] MEDS: Levothyroxine 50 MCG TAB PO (05:40)
[2019-12-24] MEDS: Levothyroxine 200 MCG TAB PO (05:40)
[2019-12-24] MEDS: Ibuprofen 600 MG TAB PO (05:43)
[2019-12-24] MEDS: Acetaminophen 325 MG TAB 650 MG PO (05:43)
[2019-12-24 08:00] VITALS: BP 151/96; PULSE 74; RESP 20; TEMP 36.4; O2SAT 99
--- NOTE | 2019-12-24 08:10 | OBPPV_ITS ---
Date of service: 12/24/19 Time of Service: 08:10 Assessment and Plan Assessment and plan (1) S/P repeat low transverse : Status: Acute (2) Essential hypertension: Status: Chronic (3) Hypothyroidism: Status: Chronic Qualifiers: Hypothyroidism type: unspecified Qualified Code(s): E03.9 - Hypothyroidism, unspecified Subjective Subjective Interval history: Patient seen this AM. Doping well. Minimal pain Patient comments: No complaints, Pain well controlled and Bowel Movement [place] baby status: Doing well [place] feeding status: Breast and formula feeding Exam Physical Exam Vital signs: Temp Pulse Resp BP Pulse Ox 98.4 F 72 20 149/93 H 96 12/24/19 05:00 12/24/19 05:00 12/24/19 05:00 12/24/19 05:00 12/24/19 00:10 Constitutional Constitutional: no acute distress and cooperative HEENT Exam HEENT Exam: Normal Respiratory Exam Respiratory Exam: Normal Cardiovascular Exam Cardiovascular Exam: Normal Abdominal Exam Comments: Abdomen soft, incision without erythema or tenderness. No drainage. Healing well Fundal Exam Fundus: Below Umbilicus and Firm Extremities Exam Extremity Exam: Normal; negative Calf Tenderness Neurological Exam Neurological Exam: Normal Results Hemoglobin/Hematocrit: Hgb 11.6 g/dL (11.2-15.7) 12/23/19 07:30 Hct 34.6 % (36.0-46.0) L 12/23/19 07:30 Abnormal Lab Findings: Abnormal Labs 12/23/19 07:30 Hct 34.6 L Absolute Neutrophils 6.84 H
--- NOTE | 2019-12-24 08:27 | DSE_ITS ---
Date of service: 12/24/19 Time of Service: 08:27 DS: Diagnosis Discharge Diagnosis (1) S/P repeat low transverse : Status: Acute (2) Essential hypertension: Status: Chronic (3) Hypothyroidism: Status: Chronic Discharge Plan Disposition Patient Disposition: HOME Condition: Good Discharge Details Reason For Visit: Admit Date/Time: 12/22/19 06:20 Admit Provider: Heidy Santos Attending Provider: Heidy Santos Primary Care Provider: Mela Barron Hospital Course Hospital Course: Patient is a 39-year-old female 4 now para 4 who had [facility]. She has had 3 prior sections and had a repeat c esarean section on 12/22/2019. It was uncomplicated. She was adequately anesthetized with spinal anesthesia and did not have to have general anesthesia for her first time with a section. She had uncomplicated course and was discharged home postoperative day #2, ambulating, tolerating regular diet, tolerating oral pain medication. Home Meds and New Rx's Prescriptions: New hydrocodone-acetaminophen [[place]] 5-325 mg tablet 1 tab PO Q8H PRNQty: 10 RF: 0 ibuprofen [IBU] 800 mg tablet 800 mg PO Q8H PRNQty: 60 RF: 1 docusate sodium [Colace] 100 mg capsule 100 mg PO BID Qty: 30 RF: 0 Continued cholecalciferol (vitamin D3) 10 mcg (400 unit) tablet,chewable 20 mcg PO DAILY RF: 0 melatonin 5 mg capsule 5 mg PO PRN RF: 0 levothyroxine 200 mcg tablet 200 mcg PO DAILY Qty: 90 RF: 3 prenat.vits,silvia,fqt-eewg-zebfx Tablet 1 tab PO DAILY Qty: 90 RF: 3 bupropion HCl [Wellbutrin SR] 100 mg tablet sustained-release 12 hr 100 mg PO DAILY Qty: 30 RF: 1 Excedrin Migraine 1 EACH tablet 1 ea PO PRN RF: 0 levothyroxine 50 mcg capsule 50 mcg PO DAILY Qty: 60 RF: 1 Discontinued aspirin 81 mg tablet,chewable 81 mg PO DAILY RF: 0 No Action labetalol 100 mg tablet 100 mg PO BID Qty: 60 RF: 6 Discharge Instructions Stand Alone Forms: BC Discharge Instruc Activity:: Activity as Tolerated Equipment/Supplies:: No Equipment Needed Diet:: Normal Diet Discharge Orders Discharge Orders: Discharge Order (Routine); Ordered 12/24/19 Ordered By: Heidy Santos DS: Summary Status at Discharge Functional status at discharge: independent ambulation Overall status at discharge: patient is back to baseline Mental Status: mental status grossly normal Speech and Movement: speech and movement normal Mood: congruent mood Affect: normal affect Exam Narrative Exam Narrative: See physical examination from progress note dated 12/24/2019 Psych Mental Status: mental status grossly normal Speech and Movement: speech and movement normal Mood: congruent mood Affect: normal affect DS: Data Vitals/I&O Vitals and I&O: Vital Signs Temperature 98.4 F 12/24/19 05:00 Pulse 72 12/24/19 05:00 Pulse Rhythm Regular 12/23/19 20:00 Respiratory Rate 20 12/24/19 05:00 Respiratory Effort 12/22/19 06:38 Respiratory Depth Normal 12/22/19 23:35 Blood Pressure 149/93 H 12/24/19 05:00 Blood Pressure Mean 111 12/24/19 05:00 Pulse Oximetry 96 12/24/19 00:10 Oxygen Delivery Method Room Air 12/22/19 16:00 Oxygen Flow Rate 0 12/22/19 16:00 Pain Level 4 12/24/19 05:43 Comment 12/23/19 19:48 Intake & Output 12/23/19 12/23/19 12/24/19 11:59 23:59 11:59 Output Total 800 / 800 Balance -800 / -800 Output: Urine 800 / 800 [facility] Medical History Adult BMI > 30 Essential hypertension (02/16/13) H/O radioactive iodine thyroid ablation History of anesthesia problem Pt. states she had a failed spinal last , and required general anesthesia last time. Hyperlipidemia (09/17/17) Resolved with 07/2018 lipid panel Hypertension Dx 2008 - d/c'd Lisonopril/HCTZ with this Hypothyroid in , antepartum s/p Radioactive Iodine Ablation. Initial dose of Synthroid in 175mcg. Increased to 225mcg on 08/18/13 Hypothyroidism (02/16/13) VAUGHN age 19 08/24/13 pt states dose is 200mcg/day. TSH 9.6. Additional dose of 25mcg/day ordered. Needs TSH in 6w. TPO antibodies (+), requiring high dose of levothyroxine Low back pain (02/16/13) Since 20s; 10/04/2015 B/L L5-S1 facet inj (Dr. 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 Silveira) Lump of axilla Pre-op testing Surgical History [place]enoidectomy section 2000 [place]. Breech 2008 [place]. Elective repeat 02/02/14-repeat Hx of wisdom tooth extraction Per pt. states she required an extensive amount of novacaine because she stated she felt everything. Tympanoplasty I Family History Mother Rheumatoid arthritis Graves disease Fibromyalgia Hypertension Father Throat cancer Social History Smoking/Tobacco Use Status: Never Alcohol Intake: never Drug use: Never Substance use type: does not use Caregiver/Support person: No Household members: spouse and children Number of Children: 3 Communication Needs: None current occupation: [employer]; [email or web address] & Anais children Current gender identity: female What type of physical activity do you participate in: walking, aerobic, regular exercise, weight lifting and resistance training Duration: 45-60 minutes/day Frequency: daily Seatbelt use: always Helmet use: Yes Drive intox or ride w/intox milk tanker driver: No Water heater temp set <120 deg: Yes Working smoke detector in home: Yes Fire extinguisher in home: Yes Carbon monox detector in home: Yes Firearms in home: Yes History History 4 Para 3 Hx # Term Pregnancies 3 Multiple births 0 Hx # Pregnancies 0 Ectopic pregnancies 0 AB induced 0 Hx Number of Living Children 3 AB spontaneous 0 Past Pregnancies Del. Date GA/Weeks # Outcome Route Wgt Sex Labor Lgth Anesthes ia Location Prov Complic 04/28/00 39 No Successful 7 lb 5 oz Male w/o ,breech [place] 01/09/09 39 No Successful 8 lb 8 oz [place] 0 [place] 02/02/14 39 No Successful 7 lb 5 oz Female [address] Lombardi Delivery Date: 04/28/00 c/s for breech. EDMUNDO,FRANK Delivery Date: 01/09/09 repeat c/s. EDMUNDO,FRANK Delivery Date: 02/02/14 repeat c/s. Spinal not effective and general anesthesia Lexii Stephens
[2019-12-24] MEDS: buPROPion-CR 100 MG TABCR PO (08:54)
[2019-12-24] MEDS: Labetalol 100 MG TAB PO (08:54)
[2019-12-24] MEDS: Prenatal Multivitamin w/CA,FE TAB 1 TAB PO (08:54)
[2019-12-24 12:20] VITALS: BP 133/87; PULSE 75; RESP 18; TEMP 36.6; O2SAT 98
== END 2019-12-24 17:45 | disposition home or self-care (01) | DRG 787 ==
LOC: PDS 08:38 → OBS 09:07
PROVIDERS: Admitting Provider Obstetrics & Gynecology; PCP Nurse Practitioner Family; Visit Provider Obstetrics & Gynecology
PROC: 10D00Z1 Extraction of Products of Conception, Low, Open Approach (ICD-10-PCS; CPT 59514; principal; 2019-12-22 07:30)
DX: O34.211 Maternal care for low transverse scar from previous cesarean delivery (principal); O10.02 Pre-existing essential hypertension complicating childbirth; O99.284 Endocrine, nutritional and metabolic diseases complicating childbirth; Z37.0 Single live birth; E89.0 Postprocedural hypothyroidism; Z67.10 Type A blood, Rh positive
CPT/HCPCS: 59514; 36415; 86850; 86900; 86901; 99238; 85025; J0456; J1100; J1885; J2370; J2405; J3010; J8498

== ENCOUNTER 2020-03-01 09:40 | Outpatient (CLI) | payer MEDICAID, SELFPAY ==
[2020-03-01 09:54] LABS: Abs Immature Grans 0.02 10^3/uL (0.0-0.06); Absolute Basophil Count 0.02 10^3/uL (0.0-0.2); Absolute Eosinophil Count 0.15 10^3/uL (0.0-0.7); Absolute Lymphocyte Count 2.72 10^3/uL (1.2-3.4); Absolute Monocyte Count 0.86 10^3/uL (0.1-0.8); Absolute Neutrophil Count 3.51 10^3/uL (1.2-6.7); Basophils % 0.3; Eosinophils % 2.1; HCT 38.5 % (36.0-46.0); HGB 12.6 g/dL (11.2-15.7); Immature Grans % 0.3; Lymphocytes % 37.4; MCH 28.5 pg (27.0-33.0); MCHC 32.7 % (32.0-36.0); MCV 87.1 fL (80-95); MPV 9.5 fL (8.0-11.0); Monocytes % 11.8; Neutrophils % 48.1; Nucleated RBC 0 %; Platelet Count 236 10^3/uL (130-400); RBC 4.42 10^6/uL (3.93-5.22); RDW 11.7 % (11.7-14.6); RDW-SD 37.6 fL; WBC 7.28 10^3/uL (4.4-10.8)
[2020-03-01 11:04] LABS: FREE T4 1.06 ng/dL (0.76-1.46); TSH 0.08 uIU/mL (0.36-3.74)
== END 2020-03-01 10:00 ==
PROVIDERS: PCP Nurse Practitioner Family; Visit Provider Obstetrics & Gynecology
DX: E03.9 Hypothyroidism, unspecified (principal); Z98.891 History of uterine scar from previous surgery
CPT/HCPCS: 36415; 84439; 84443; 85025

== ENCOUNTER 2020-04-04 01:31 | Outpatient (CLI) | payer MEDICAID, SELFPAY ==
--- NOTE | 2020-04-04 08:00 | DI.US_ITS ---
EXAM: US AXILLA RT CLINICAL HISTORY: Assess R axillary mass,r22.33 TECHNIQUE: Ultrasound right axilla performed using standard protocol. COMPARISON: No exams were available for comparison FINDINGS: No solid or cystic masses, hypoechoic foci, areas of abnormal shadowing, or areas of skin thickening. No adenopathy. IMPRESSION: No sonographically suspicious finding. DATA REPOSITORY:
--- NOTE | 2020-04-04 08:00 | DI.US_ITS ---
EXAM: US AXILLA LT CLINICAL HISTORY: reassess L axillary mass,r22.33 TECHNIQUE: Ultrasound left axilla performed using standard protocol. COMPARISON: No exams were available for comparison FINDINGS: No solid or cystic masses, hypoechoic foci, areas of abnormal shadowing, are seen. There is a questi on of mildly thickened and heterogeneous tissue in the subcutaneous fat. IMPRESSION: Question thickening in the subcutaneous fat the area of the palpable abnormality. There is no eviden ce of a focal mass or adenopathy. DATA REPOSITORY:
== END 2020-04-04 01:51 ==
PROVIDERS: PCP Nurse Practitioner Family; Visit Provider Nurse Practitioner Adult Health
DX: R22.33 Localized swelling, mass and lump, upper limb, bilateral (principal)
CPT/HCPCS: 76642

== ENCOUNTER 2020-10-17 03:34 | Outpatient (CLI) | payer MEDICAID, SELFPAY ==
[2020-10-17 11:25] LABS: Anion Gap 8.5 mmol/L (3-11); BUN 26 mg/dL (7-18); CO2 28.5 mmol/L (21.0-32.0); CREATININE 0.7 mg/dL (0.55-1.02); Chloride 104 mmol/L (98-107); Glucose 89 mg/dL (74-106); Potassium 4.3 mmol/L (3.5-5.1); Sodium 141 mmol/L (136-145); TSH (W/Ref FT4) 7.89 uIU/mL (0.36-3.74)
[2020-10-17 11:48] LABS: FREE T4 0.83 ng/dL (0.76-1.46)
== END 2020-10-17 03:35 | disposition home or self-care (01) ==
LOC: LBO 03:34
PROVIDERS: PCP Nurse Practitioner Family; Visit Provider Nurse Practitioner Family
DX: E03.9 Hypothyroidism, unspecified (principal); I10 Essential (primary) hypertension
CPT/HCPCS: 36415; 80048; 84439; 84443

== ENCOUNTER 2021-02-22 02:42 | Outpatient (CLI) | payer MEDICAID, SELFPAY ==
[2021-02-22 12:15] LABS: Anion Gap 10.8 mmol/L (3-11); BUN 14 mg/dL (7-18); CO2 25.2 mmol/L (21.0-32.0); CREATININE 0.8 mg/dL (0.55-1.02); Calcium 7.9 mg/dL (8.5-10.1); Chloride 106 mmol/L (98-107); Glucose 84 mg/dL (74-106); Potassium 3.3 mmol/L (3.5-5.1); Sodium 142 mmol/L (136-145); TSH (W/Ref FT4) 1.42 uIU/mL (0.36-3.74)
[2021-02-23 14:52] LABS: Albumin 3.9 g/dL (3.4-5.0)
[2021-02-26 09:23] LABS: Parathyroid Hormone,Intact 65 pg/mL (19-88)
== END 2021-02-22 02:43 | disposition home or self-care (01) ==
LOC: LBO 02:42
PROVIDERS: PCP Nurse Practitioner Family; Visit Provider Nurse Practitioner Family
DX: E03.9 Hypothyroidism, unspecified; R79.9 Abnormal finding of blood chemistry, unspecified; E83.51 Hypocalcemia
CPT/HCPCS: 36415; 80048; 82040; 83970; 84443

== ENCOUNTER 2021-03-06 03:05 | Outpatient (CLI) | payer MEDICAID, SELFPAY ==
[2021-03-06 10:25] LABS: Magnesium 2.2 mg/dL (1.8-2.4); PHOSPHORUS 4.5 mg/dL (2.6-4.7)
[2021-03-09 01:53] LABS: 25-Hydroxy D Total 27 ng/mL; 25-Hydroxy D2 <4.0 ng/mL; 25-Hydroxy D3 27 ng/mL
[2021-03-09 13:46] LABS: 1,25-Dihydroxyvitamin D 37 pg/mL (18-78)
== END 2021-03-06 03:06 | disposition home or self-care (01) ==
LOC: LBO 03:05
PROVIDERS: PCP Nurse Practitioner Family; Visit Provider Nurse Practitioner Family
DX: E83.51 Hypocalcemia (principal)
CPT/HCPCS: 36415; 82306; 82652; 83735; 84100

== ENCOUNTER 2021-03-19 03:42 | Outpatient (CLI) | payer MEDICAID, SELFPAY ==
[2021-03-19 10:43] LABS: Source Nasal/Nares
[2021-03-19 18:17] LABS: COVID-19 PCR Negative (Negative)
== END 2021-03-19 03:43 | disposition home or self-care (01) ==
LOC: LBO 03:42
PROVIDERS: PCP Nurse Practitioner Family; Visit Provider Student in an Organized Health Care Education/Training Program
DX: Z20.822 Contact with and (suspected) exposure to COVID-19 (principal)
CPT/HCPCS: 87635

== ENCOUNTER 2021-03-20 10:34 | Day surgery (SDC) | payer MEDICAID, SELFPAY ==
[2021-03-20 10:58] VITALS: BP 138/98; PULSE 73; RESP 18; TEMP 36.6; O2SAT 99
--- NOTE | 2021-03-20 11:04 | ANES.PREOP_ITS ---
General Info Date of Service Date Performed: 03/20/21 Height: 5 ft 7 in Weight: 78.7 kg Body Mass Index (BMI): 27.1 Surgical Procedure: Operation Date: 03/20/21 14:25 Proposed Procedures Side Surgeon p Wrist ECTR Left Naga Stewatr MD Meds Allergies and Home Medications Allergies Allergy/AdvReac Type Severity Reaction Status Date / Time No Known Drug Allergies Allergy Verified 03/20/21 10:51 Home Medication Medication Instructions Recorded Excedrin Migraine 1 ea PO PRN cap 02/22/15 melatonin 5 mg capsule 5 mg PO PRN cap 09/13/19 labetalol 100 mg tablet 100 mg PO BID #180 tab 07/27/20 levothyroxine 200 mcg tablet See Rx Instructions PO DAILY #90 10/20/20 tab-cap levothyroxine 25 mcg tablet See Rx Instructions PO DAILY #90 01/18/21 tab-cap cholecalciferol (vitamin D3) 50 150 mcg PO DAILY cap 03/09/21 mcg (2,000 unit) capsule prenat.vits,silvia,sur-zkpe-zxkqy 1 tab PO DAILY #90 tab-cap 03/09/21 Current Visit Medications: Current Medications Generic Name Dose Route Start Last Admin Trade Name Freq PRN Reason Stop Dose Admin Ringer's Solution 1,000 mls @ 80 mls/hr 03/20/21 06:00 IV 04/18/21 23:59 INFUSION ERIK Cefazolin Sodium/Dextrose 2 gm in 50 mls @ 100 mls/hr 03/20/21 06:00 Ancef Duplex IVPB 03/20/21 16:00 PREOP ERIK IV Miscellaneous Supplies 1 each 03/20/21 06:00 Iv Access IV 04/18/21 23:59 DIRECTED ERIK Sodium Chloride 0 ml 03/20/21 06:00 Normal Saline Flush 10 Ml Syr IV 04/18/21 23:59 PRN PRN Sodium Chloride 0 ml 03/20/21 06:00 Normal Saline 10 Ml Vial IJ 04/18/21 23:59 DIRECTED PRN Sterile Water 0 ml 03/20/21 06:00 Water,Injection,Sterile 10 Ml Vial IJ 04/18/21 23:59 DIRECTED PRN PFSH Active Problems Active Problems: Problem Status Onset Code Essential hypertension 02/16/13 I10 Hyperlipidemia 09/17/17 E78.5 Hypothyroidism 02/16/13 E03.9 Low back pain 02/16/13 M54.5 Knee pain 02/16/13 M25.569 Bilateral hand numbness R20.0 Bilateral carpal tunnel syndrome G56.03 Hypocalcemia E83.51 Mother currently breast-feeding Z39.1 Medical History Medical History COVID-19 01/23/21- body aches, lost sense of taste, headache. Is at 8 week bharat 03/20/21 H/O radioactive iodine thyroid ablation History of anesthesia problem Pt. states she had a failed spinal last , and required general anesthesia last time. Hypertension Dx 2008 - d/c'd Lisonopril/HCTZ with this Hypothyroid in , antepartum s/p Radioactive Iodine Ablation. Initial dose of Synthroid in 175mcg. Increased to 225mcg on 08/18/13 Lump of axilla Medical History Comments:: See note regarding failed spinal Surgical History Surgical History [place]enoidectomy section 2000 [place] Breech 2008 [place]. Elective repeat 02/02/14-repeat Hx of wisdom tooth extraction Per pt. states she required an extensive amount of novacaine because she stated she felt everything. S/P repeat low transverse Tympanoplasty I Tobacco Smoking/Tobacco Use Status: Never Passive smoking exposure: No Alcohol Alcohol Intake: never Substance Use Substance use: Never Substance use type: does not use Prental History History 4 Para 3 Hx # Term Pregnancies 3 Multiple births 0 Hx # Pregnancies 0 Ectopic pregnancies 0 AB induced 0 Hx Number of Living Children 4 AB spontaneous 0 Past Pregnancies Del. Date GA/Weeks # Outcome Route Wgt Sex Labor Lgth Anesthes ia Location Prov Complic 04/28/00 39 No Successful 3316.894 g [place] w/[place] ,[place]reech [place] 01/09/09 39 No Successful 3855.535 g [place] 0 [place] 02/02/14 39 No Successful 3316.894 g Female [address] Lombardi 12/22/19 37 No Successful 3160.008 g Male Delivery Date: 04/28/00 c/s for breech. Chastity Squires Delivery Date: 01/09/09 repeat c/s. Chastity Squires Delivery Date: 02/02/14 repeat c/s. Spinal not effective and general anesthesia Lexii Stephens Delivery Date: 12/22/19 No notes to display Vital Signs and Lab Results Vital Signs Most Recent Vital Signs in EMR: Most Recent Vital Signs Temp Pulse Resp BP Pulse Ox 36.6 C 73 18 138/98 H 99 03/20/21 10:58 03/20/21 10:58 03/20/21 10:58 03/20/21 10:58 03/20/21 10:58 Point of Care Results Point of Care Results: POC- Test(urine) Negative 03/20/21 11:02 Lab Results Blood Type / Crossmatch: No Data to Display Complete Blood Count: No Data to Display Complete Metabolic Panel: Sodium Level 142 mmol/L (136-145) 02/22/21 10:44 02/22/21 Potassium Level 3.3 mmol/L (3.5-5.1) L 02/22/21 10:44 02/22/21 Chloride Level 106 mmol/L (98-107) 02/22/21 10:44 02/22/21 Carbon Dioxide Level 25.2 mmol/L (21.0-32.0) 02/22/21 10:44 02/22/21 Blood Urea Nitrogen 14 mg/dL (7-18) 02/22/21 10:44 02/22/21 Creatinine 0.8 mg/dL (0.55-1.02) 02/22/21 10:44 02/22/21 Estimated GFR/1.73 m2 >= 60.00 (mL/min/1.73m2) 02/22/21 10:44 02/22/21 Magnesium Level 2.2 mg/dL (1.8-2.4) 03/06/21 09:14 03/06/21 Calcium Level 7.9 mg/dL (8.5-10.1) L 02/22/21 10:44 02/22/21 Albumin 3.9 g/dL (3.4-5.0) 02/22/21 10:44 02/22/21 Glucose Level 84 mg/dL (74-106) 02/22/21 10:44 02/22/21 Liver Function Panel: No Data to Display Coagulation Panel: No Data to Display Cardiac Panel: No Data to Display Arterial Blood Gas: No Data to Display Venous Blood Gas: No Data to Display Pancreas Panel: No Data to Display Thyroid Panel: Thyroid Stimulating Hormone (TSH) 1.42 uIU/mL (0.36-3.74) 02/22/21 10:44 02/22/21 Infectious Disease: Coronavirus (COVID-19)(PCR) Negative (Negative) 03/19/21 10:20 03/19/21 Coronavirus 2019 Source Nasal/Nares 03/19/21 10:20 03/19/21 Blood Cultures: No Data to Display Toxicology Panel: No Data to Display Panel: No Data to Display Imaging and Studies Imaging and Studies Study information below may be from another EMR and interpreted by another provider. Please see original notes in EMR for more complete details. Stress Test Summary: DATE OF SERVICE: 09/04/17 *[facility]* *[facility]* Stress Electrocardiography Impressions: Normal study after maximal exercise. Anesthesia Assessment and Plan Anesthesia History Personal History: Other (Failed spinal/epidural for ) Family History: No Family History of Anesthesia Complications Exercise Tolerance Exercise Tolerance: Metabolic Equivalents>4 Pertinent Negatives Pertinent Negatives: No Symptoms of GERD, No Major Cardiovascular Symptoms or Complaints and No Major Pulmonary Symptoms or Complaints Cardiac & Pulmonary Exam Cardiac Exam: Normal S1/S2 Heart Sounds Pulmonary Exam: Clear Bilateral Breath Sounds Implantable Cardiac Device Does patient have a Pacemaker or an ICD?: No Airway Exam Known Difficult Airway: No Mallampati Class: 2 Mouth Opening: Normal (> 3cm) Thyromental Distance: Greater than 3 cm Neck Range of Motion: Full ROM Neck Circumference: Normal Teeth Condition: Normal Dentition ASA Classification ASA Score: ASA 2 Emergency Case?: No NPO Status NPO Status: NPO Clears >2 hours, Solids >8 hours Status Status: Negative HCG Anesthesia Plan Resuscitation Status: Full Code Anesthesia Technique: General Anesthesia Airway Planned: Natural Airway Monitors Used: Standard Monitors
[2021-03-20] MEDS: Lactated Ringers 1,000 ML 80 ML IV (11:26)
[2021-03-20 11:35] VITALS: BMI 27.1
--- NOTE | 2021-03-20 12:15 | W.PREOPHP ---
Assessment and Plan Assessment and plan (1) Bilateral carpal tunnel syndrome: Status: Acute Assessment and plan: Liz is a 40-year-old who has bilateral carpal tunnel syndrome, left worse than right. She is here today for a left-sided endoscopic carpal tunnel release. I discussed the risks of the procedure to include, but not limited to, bleeding, infection, palmar pain, stiffness, damage to nerves, damage to vessels, damage to tendons, weakness, recurrence, and incomplete release. Given these risks, Liz desires to proceed. We will plan to proceed with the right side in the near future assuming things go well with the left side. History of Present Illness History of Present Illness Chief Complaint: Bialteral Carpal Tunnel Syndrome Narrative: Liz is a 40-year-old has bilateral carpal tunnel syndrome. Left side is worse than right side. Please see the previous office note for complete detailed clinical history. She is here today for left-sided endoscopic carpal tunnel release. She denies any changes to her symptoms. She denies any sick contacts. She is COVID-19 negative. Review of Systems All systems reviewed & are unremarkable except as noted in HPI and below PFSH All Active Problems Essential hypertension (Chronic 02/16/13) Hypothyroidism (Chronic 02/16/13) VAUGHN age 19 08/24/13 pt states dose is 200mcg/day. TSH 9.6. Additional dose of 25mcg/day ordered. Needs TSH in 6w. TPO antibodies (+), requiring high dose of levothyroxine Low back pain (Chronic 02/16/13) Since 20s; 10/04/2015 B/L L5-S1 facet inj (Dr. 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 Silveira) Knee pain (Acute 02/16/13) Bilateral hand numbness (Acute) Bilateral carpal tunnel syndrome (Acute) Hypocalcemia (Acute) Mother currently breast-feeding (Acute) Medical History COVID-19 01/23/21- body aches, lost sense of taste, headache. Is at 8 week bharat 03/20/21 H/O radioactive iodine thyroid ablation History of anesthesia problem Pt. states she had a failed spinal last , and required general anesthesia last time. Hypertension Dx 2008 - d/c'd Lisonopril/HCTZ with this Hypothyroid in , antepartum s/p Radioactive Iodine Ablation. Initial dose of Synthroid in 175mcg. Increased to 225mcg on 08/18/13 Lump of axilla Surgical History [place]enoidectomy section 2000 [place] Breech 2008 [place]. Elective repeat 02/02/14-repeat Hx of wisdom tooth extraction Per pt. states she required an extensive amount of novacaine because she stated she felt everything. 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 Current gender identity: female What type of physical activity do you participate in: walking, aerobic, regular exercise, weight lifting and resistance training Duration: 45-60 minutes/day Frequency: daily Seatbelt use: always Helmet use: Yes Drive intox or ride w/intox winch driver: No Water heater temp set <120 deg: Yes Working smoke detector in home: Yes Fire extinguisher in home: Yes Carbon monox detector in home: Yes Firearms in home: Yes Do you feel safe at home: Yes Do you feel safe in your relationship?: Yes History History 4 Para 3 Hx # Term Pregnancies 3 Multiple births 0 Hx # Pregnancies 0 Ectopic pregnancies 0 AB induced 0 Hx Number of Living Children 4 AB spontaneous 0 Past Pregnancies Del. Date GA/Weeks # Outcome Route Wgt Sex Labor Lgth Anesthesia Location Prov Complic 04/28/00 39 No Successful 3316.894 g Male w/o ,breech [place] 01/09/09 39 No Successful 3855.535 g Male 0 regional [place]. 02/02/14 39 No Successful 3316.894 g Female [address] Lombardi 12/22/19 37 No Successful 3160.008 g Male Delivery Date: 04/28/00 c/s for breech. Chastity Squires Delivery Date: 01/09/09 repeat c/s. Kimlopatricia,[place] Delivery Date: 02/02/14 repeat c/s. Spinal not effective and general anesthesia O'Lexii Campbell Delivery Date: 12/22/19 No notes to display Meds Allergies and Home Medications Allergies Allergy/AdvReac Type Severity Reaction Status Date / Time No Known Drug Allergies Allergy Verified 03/20/21 10:51 Home Medications Medication Instructions Recorded Confirmed Type Excedrin Migraine 1 ea PO PRN cap 02/22/15 03/20/21 History melatonin 5 mg capsule 5 mg PO PRN cap 09/13/19 03/20/21 History labetalol 100 mg tablet 100 mg PO BID #180 tab 07/27/20 03/20/21 Rx levothyroxine 200 mcg tablet See Rx Instructions PO DAILY #90 10/20/20 03/20/21 Rx tab-cap levothyroxine 25 mcg tablet See Rx Instructions PO DAILY #90 01/18/21 03/20/21 Rx tab-cap cholecalciferol (vitamin D3) 50 150 mcg PO DAILY cap 03/09/21 03/20/21 History mcg (2,000 unit) capsule prenat.vits,silvia,hin-oser-ngvge 1 tab PO DAILY #90 tab-cap 03/09/21 03/20/21 Rx Exam Resp Effort & Inspection: normal respiratory effort Cardio Rate: regular rate Rhythm: regular rhythm Results Last Vital Signs Temp 36.6 C 03/20/21 10:58 Pulse 73 03/20/21 10:58 Resp 18 03/20/21 10:58 BP 138/98 H 03/20/21 10:58 Pulse Ox 99 03/20/21 10:58
[2021-03-20] MEDS: ceFAZolin 2 GM/50 ML BAG IVPB (13:18)
[2021-03-20] MEDS: Sodium Bicarbonate 50 MEQ/50 ML VIAL (13:34)
[2021-03-20 13:54] VITALS: BP 131/79; PULSE 71; RESP 20; TEMP 36.3; O2SAT 100
[2021-03-20 14:08] VITALS: BP 147/97; PULSE 84; RESP 16; TEMP 36; O2SAT 100
--- NOTE | 2021-03-20 14:51 | PDOC.DSDIS_ITS ---
Discharge Plan Disposition Patient Disposition: HOME Condition: Good Discharge Details Reason For Visit: L ECTR Attending Provider: Naga Stewart Primary Care Provider: Mela Barron Home Meds and New Rx's Prescriptions: New acetaminophen 500 mg tablet 1,000 mg PO TID Qty: 90 RF: 0 ibuprofen 600 mg tablet 600 mg PO TID PRN (Reason: pain) Qty: 90 RF: 0 Continued melatonin 5 mg capsule 5 mg PO PRN RF: 0 cholecalciferol (vitamin D3) 50 mcg (2,000 unit) capsule 150 mcg PO DAILY RF: 0 prenat.vits,silvia,gkw-wgil-omure Tablet 1 tab PO DAILY Qty: 90 RF: 3 levothyroxine 200 mcg tablet See Rx Instructions PO DAILY Qty: 90 RF: 3 labetalol 100 mg tablet 100 mg PO BID Qty: 180 RF: 3 Excedrin Migraine 1 EACH tablet 1 ea PO PRN RF: 0 levothyroxine 25 mcg tablet See Rx Instructions PO DAILY Qty: 90 RF: 0 Discharge Instructions Stand Alone Forms: Pat Diaz Tunnel Release Referrals: Naga Stewart MD [ [facility] STAFF PHYSICIAN] - Activity:: Activity as Tolerated Remove Dressings/Wound Care:: 48 hours Shower/Bathe:: 48 hours Diet:: As Tolerated Discharge Orders Discharge Orders: Discharge Order (Routine); Ordered 03/20/21 Ordered By: Yves Rao DS: Diagnosis Discharge Diagnosis (1) Left carpal tunnel syndrome: Status: Acute
--- NOTE | 2021-03-20 21:03 | ROE_ITS ---
Date of service: 03/20/21 Time of Service: 14:04 Operative Note Operative Note DATE OF PROCEDURE: 03/20/21 PRE-OP DIAGNOSIS: Left Carpal Tunnel Syndrome POST-OP DIAGNOSIS: same PROCEDURE: Left Endoscopic Carpal Tunnel Release SURGEON: Naga Stewart ANESTHESIA TYPE: General:No Airway Refer to Anesthesia Record ESTIMATED BLOOD LOSS: 0 PATHOLOGY: none sent TOURNIQUET TIME: 5 COMPLICATIONS: None Patient was transported to: same day Patient's condition: stable Indications: I have seen Liz in clinic for symptoms of carpal tunnel syndrome. The numbness, tingling, and pain limited function. Clinical exam findings with nerve conduction tests confirmed the diagnosis of carpal tunnel syndrome. Nonoperative measures such as bracing, time, activity modifications had been tried but disability and pain persisted. I discussed carpal tunnel release with the patient. I reviewed the risks of the procedure to include, but not limited to, bleeding, infection, pain, stiffness, incomplete release, damage to nerves or vessels, persistent numbness, recurrence. Despite these risks, the patient elected to proceed. Findings: There was tightened carpal tunnel. This was dilated and released successfully with the endoscopic with increased space within the tunnel. The a ntebrachial fascia was released proximally freeing the median nerve at the wrist. Procedure Description: Liz was greeted in the preoperative holding area where the correct side was identified and marked. The consent was reviewed with the patient and signed. The history and physical was updated. All questions were answered. She was taken back to the operating room. The patient was placed into the supine position on the operating room table with the left arm on an arm board. A nonsterile tourniquet was placed high onto the arm. All bony prominences were well padded. Prophylactic antibiotics in the form of Cefazolin were administered. The left arm was then prepped with Chloraprep and draped in a standard fashion with stockinette and extremity drape. A timeout to confirm correct identity, side and site, procedure, allergies, anesthesia, and medical concerns was performed. The surgical site was marked in the volar wrist creases in line with the radial border of the fourth ray. This area was anesthetized with approximately 6cc of 1% Lidocaine. The limb was then exsanguinated with an Esmarch. The skin was incised with a 15 blade, approximately 1cm. The skin only was cut and the deeper tissue was dissected bluntly with a tenotomy scissor, avoiding passing nerve and venous structures. The fascia was penetrated and opened bluntly. A two-prong skin hook was placed under this proximal fascial edge. A series of hamate finders were used to identify and dilate the carpal tunnel. Synovial elevator was used to free synovial attachments to the underside of the transverse carpal ligament. My thumb was kept in the palm to bharat the distal extent of the carpal tunnel and correctly position the hand. The [employer]aire endoscope was inserted without difficulty and without resistance. Excellent visualization showed horizontally running fibers of the transverse carpal ligament (TCL). The distal extent of the TCL was visualized and the end of the scope palpated with the thumb. The blade was elevated and withdrawn from distal to proximal. The TCL was split into two flaps. The endoscope was reinserted to confirm complete release and any remnant ligament was incised. The scope was withdrawn and the proximal aspect of the carpal tunnel was grossly inspected and appeared release with the median nerve visible. The antebrachial fascia at the level of the wrist was then freed from the overlying skin and then the underlying median nerve with blunt dissection. This was transected longitudinally for about 3cm proximal to the wrist incision. The wound was then irrigated with easy flow of irrigant distally and proximally. The incision was closed with a single 4-0 Nylon suture. The wound was dressed with Xeroform, Gauze, Kerlix and Ranjan. The tourniquet was deflated with the initial dressing and held with some pressure. Blood flow returned easily to all digits with capillary refill less than 2 seconds. The patient tolerated the procedure well and was returned to the Same Day Surgery area in a stable condition suffering no known complication.
--- NOTE | 2021-03-21 13:45 | W.ANESPOSTOP ---
Postoperative Evaluation Date, Time and Location Date Performed: 03/20/21 Time Performed: 14:10 Patient Location: Day Surgery Unit Vital Signs Most Recent Imported Vital Signs: Most Recent Vital Signs Temp Pulse Resp BP Pulse Ox 36.0 C L 84 16 147/97 H 100 03/20/21 14:08 03/20/21 14:08 03/20/21 14:08 03/20/21 14:08 03/20/21 14:08 Pain Score Most Recent Pain Score: Most Recent Pain Score Pain Level 0 03/20/21 14:08 Assessment Mental Status: Awake (Alert & Oriented to Patient Baseline) Airway and Respiratory Function: Patent airway with normal (patient baseline) respiratory exam Cardiovascular Function: Hemodynamically Stable Hydration Status: Adequately Hydrated Nausea & Vomiting: No Nausea or Vomiting Pain: Pt. Denies Any Pain Peripheral Nerve Block: Patient did not receive a nerve block
== END 2021-03-20 15:29 | disposition home or self-care (01) ==
PROVIDERS: PCP Nurse Practitioner Family; Visit Provider Student in an Organized Health Care Education/Training Program
PROC: 01N54ZZ Release Median Nerve, Percutaneous Endoscopic Approach (ICD-10-PCS; CPT 29848; principal; 2021-03-20 14:15)
DX: G56.02 Carpal tunnel syndrome, left upper limb (principal); I10 Essential (primary) hypertension; E78.5 Hyperlipidemia, unspecified
CPT/HCPCS: 29848; 81025; J0690; J1885; J2250; J2405

== ENCOUNTER 2021-04-30 03:08 | Outpatient (CLI) | payer MEDICAID, SELFPAY ==
[2021-04-30 12:06] LABS: Source Nasal/Nares
[2021-04-30 15:33] LABS: COVID-19 PCR Negative (Negative)
== END 2021-04-30 03:09 | disposition home or self-care (01) ==
LOC: LBO 03:08
PROVIDERS: PCP Nurse Practitioner Family; Visit Provider Student in an Organized Health Care Education/Training Program
DX: Z20.822 Contact with and (suspected) exposure to COVID-19 (principal); Z01.818 Encounter for other preprocedural examination
CPT/HCPCS: 87635

== ENCOUNTER 2021-04-30 12:56 | Outpatient (REF) | payer MEDICAID, SELFPAY | END 2021-04-30 12:57 | disposition home or self-care (01) | LOC: LBN 12:56 | PROVIDERS: PCP Nurse Practitioner Family; Visit Provider Student in an Organized Health Care Education/Training Program ==

== ENCOUNTER 2021-05-01 08:07 | Day surgery (SDC) | payer MEDICAID, SELFPAY ==
--- NOTE | 2021-05-01 07:21 | W.PM.DSUDISC ---
Documented by User: lCarice Linares 05/01/21 07:22 Discharge Plan Disposition Patient Disposition: HOME Condition: Good Discharge Details Reason For Visit: Right carpal tunnel syndrome Attending Provider: Naga Stewart Primary Care Provider: Mela Barron Home Meds and New Rx's Prescriptions: Continued melatonin 5 mg capsule 5 mg PO PRN RF: 0 cholecalciferol (vitamin D3) 50 mcg (2,000 unit) capsule 150 mcg PO DAILY RF: 0 prenat.vits,silvia,[id number]-[id number]-landj Tablet 1 tab PO DAILY Qty: 90 RF: 3 levothyroxine 200 mcg tablet See Rx Instructions PO DAILY Qty: 90 RF: 3 labetalol 100 mg tablet 100 mg PO BID Qty: 180 RF: 3 Excedrin Migraine 1 EACH tablet 1 ea PO PRN RF: 0 levothyroxine 25 mcg tablet See Rx Instructions PO DAILY Qty: 90 RF: 0 acetaminophen 500 mg tablet 1,000 mg PO TID Qty: 90 RF: 0 ibuprofen 600 mg tablet 600 mg PO TID PRN (Reason: pain) Qty: 90 RF: 0 hydrocodone-acetaminophen 5-325 mg tablet 1 tab PO Q6H PRN (Reason: pain) Qty: 3 RF: 0 Discharge Instructions Stand Alone Forms: Pat Diaz Tunnel Release Activity:: Elevate Remove Dressings/Wound Care:: 48 hours Shower/Bathe:: 48 hours Diet:: As Tolerated Discharge Orders Discharge Orders: Discharge Order (Routine); Ordered 05/01/21 Ordered By: Clarice Linares DS: Diagnosis Discharge Diagnosis (1) Right carpal tunnel syndrome: Status: Acute Documented by User: Naga Stewart MD 05/01/21 09:11 Discharge Plan Disposition Patient Disposition: HOME Condition: Good Discharge Details Reason For Visit: Right carpal tunnel syndrome Attending Provider: Naga Stewart Primary Care Provider: Mela Barron Home Meds and New Rx's Prescriptions: Continued melatonin 5 mg capsule 5 mg PO PRN RF: 0 cholecalciferol (vitamin D3) 50 mcg (2,000 unit) capsule 150 mcg PO DAILY RF: 0 prenat.vits,silvia,[id number] Tablet 1 tab PO DAILY Qty: 90 RF: 3 levothyroxine 200 mcg tablet See Rx Instructions PO DAILY Qty: 90 RF: 3 labetalol 100 mg tablet 100 mg PO BID Qty: 180 RF: 3 Excedrin Migraine 1 EACH tablet 1 ea PO PRN RF: 0 levothyroxine 25 mcg tablet See Rx Instructions PO DAILY Qty: 90 RF: 0 acetaminophen 500 mg tablet 1,000 mg PO TID Qty: 90 RF: 0 ibuprofen 600 mg tablet 600 mg PO TID PRN (Reason: pain) Qty: 90 RF: 0 hydrocodone-acetaminophen 5-325 mg tablet 1 tab PO Q6H PRN (Reason: pain) Qty: 3 RF: 0 Discharge Instructions Stand Alone Forms: [place] Dimitri. Tunnel Release Activity:: Elevate Remove Dressings/Wound Care:: 48 hours Shower/Bathe:: 48 hours Diet:: As Tolerated Discharge Orders Discharge Orders: Discharge Order (Routine); Ordered 05/01/21 Ordered By: Clarice Linares
[2021-05-01 08:45] VITALS: BP 126/97; PULSE 78; RESP 20; TEMP 36.5; O2SAT 99
[2021-05-01] MEDS: Lactated Ringers 1,000 ML 80 ML IV (09:00)
--- NOTE | 2021-05-01 09:00 | W.ANESPRE ---
General Info Date of Service Date Performed: 05/01/21 Height: 5 ft 7 in Weight: 83 kg Body Mass Index (BMI): 28.6 Surgical Procedure: Operation Date: 05/01/21 09:55 Proposed Procedures Side Surgeon p Wrist ECTR Right Naga Stewart MD Actual Procedures Side Surgeon p Wrist ECTR Right Naga Stewart MD Pre-Op Diagnosis Post-Op Diagnosis Right carpal tunnel syndrome ECTR Right carpal tunnel syndrome Meds Allergies and Home Medications Allergies Allergy/AdvReac Type Severity Reaction Status Date / Time No Known Drug Allergies Allergy Verified 05/01/21 08:33 Home Medication Medication Instructions Recorded Excedrin Migraine 1 ea PO PRN cap 02/22/15 melatonin 5 mg capsule 5 mg PO PRN cap 09/13/19 labetalol 100 mg tablet 100 mg PO BID #180 tab 07/27/20 levothyroxine 200 mcg tablet See Rx Instructions PO DAILY #90 10/20/20 tab-cap cholecalciferol (vitamin D3) 50 150 mcg PO DAILY cap 03/09/21 mcg (2,000 unit) capsule prenat.vits,silvia,[id number]-esyd-cqmpx 1 tab PO DAILY #90 tab-cap 03/09/21 acetaminophen 1,000 mg PO TID #90 tab 03/20/21 hydrocodone-acetaminophen 1 tab PO Q6H PRN #3 tab 03/20/21 ibuprofen 600 mg PO TID PRN #90 tab 03/20/21 levothyroxine 25 mcg tablet See Rx Instructions PO DAILY #90 04/26/21 tab-cap Current Visit Medications: Current Medications Generic Name Dose Route Start Last Admin Trade Name Freq PRN Reason Stop Dose Admin Acetaminophen 650 mg 05/01/21 07:20 Acetaminophen 325 Mg Tab PO Q4H PRN PRN Hydrocodone Bitart/Acetaminophen 0 tab 05/01/21 07:20 Hydrocodone 5/Acetaminophen 325 Tab PO Q3H PRN PRN Pain Ringer's Solution 1,000 mls @ 80 mls/hr 05/01/21 06:00 IV 05/30/21 23:59 INFUSION ERIK Cefazolin Sodium/Dextrose 2 gm in 50 mls @ 100 mls/hr 05/01/21 06:00 Ancef Duplex IVPB 05/30/21 23:59 PREOP ERIK IV Miscellaneous Supplies 1 each 05/01/21 06:00 Iv Access IV 05/30/21 23:59 DIRECTED ERIK Sodium Chloride 0 ml 05/01/21 06:00 Normal Saline Flush 10 Ml Syr IV 05/30/21 23:59 PRN PRN Sodium Chloride 0 ml 05/01/21 06:00 Normal Saline 10 Ml Vial IJ 05/30/21 23:59 DIRECTED PRN Sterile Water 0 ml 05/01/21 06:00 Water,Injection,Sterile 10 Ml Vial IJ 05/30/21 23:59 DIRECTED PRN PFSH Active Problems Active Problems: Problem Status Onset Code Right carpal tunnel syndrome G56.01 Essential hypertension 02/16/13 I10 Hyperlipidemia 09/17/17 E78.5 Hypothyroidism 02/16/13 E03.9 Low back pain 02/16/13 M54.5 Knee pain 02/16/13 M25.569 Bilateral hand numbness R20.0 Hypocalcemia E83.51 Mother currently breast-feeding Z39.1 Medical History Medical History COVID-19 01/23/21- body aches, lost sense of taste, headache. Is at 8 week bharat 03/20/21 H/O radioactive iodine thyroid ablation History of anesthesia problem Pt. states she had a failed spinal last , and required general anesthesia last time. Hypertension Dx 2008 - d/c'd Lisonopril/HCTZ with this Hypothyroid in , antepartum s/p Radioactive Iodine Ablation. Initial dose of Synthroid in 175mcg. Increased to 225mcg on 08/18/13 Lump of axilla Medical History Comments:: failed c- section. Pt reports anesthesia problm with her third . Pt. reports she needed extra novacaine with wisdom teeth removal. Surgical History Surgical History [place]enoide[place] 2000 [place]. Breech 2008 [place]. Elective repeat 02/02/14-repeat Hx of wisdom tooth extraction Per pt. states she required an extensive amount of novacaine because she stated she felt everything. Left carpal tunnel syndrome S/P ECTR: 03/20/2021 S/P repeat low transverse Tympanoplasty I Tobacco Smoking/Tobacco Use Status: Never Passive smoking exposure: No Alcohol Alcohol Intake: never Substance Use Substance use: Never Substance use type: does not use Prental History History 4 Para 3 Hx # Term Pregnancies 3 Multiple births 0 Hx # Pregnancies 0 Ectopic pregnancies 0 AB induced 0 Hx Number of Living Children 4 AB spontaneous 0 Past Pregnancies Del. Date GA/Weeks # Outcome Route Wgt Sex Labor Lgth Anesthesia Location Prov Complic 04/28/00 39 No Successful 3316.894 g [place] ,[place]ch [place] 01/09/09 39 No Successful 3855.535 g [place] 0 [place] 02/02/14 39 No Successful 3316.894 g Female [address] Lombardi 12/22/19 37 No Successful 3160.008 g Male Delivery Date: 04/28/00 c/s for breech. Chastity Squires Delivery Date: 01/09/09 repeat c/s. Chastity Squires Delivery Date: 02/02/14 repeat c/s. Spinal not effective and general anesthesia Lexii Stephens Delivery Date: 12/22/19 No notes to display Vital Signs and Lab Results Vital Signs Most Recent Vital Signs in EMR: Most Recent Vital Signs Temp Pulse Resp BP Pulse Ox 36.5 C 78 20 126/97 H 99 05/01/21 08:45 05/01/21 08:45 05/01/21 08:45 05/01/21 08:45 05/01/21 08:45 Point of Care Results Point of Care Results: POC- Test(urine) Negative 05/01/21 08:58 Lab Results Blood Type / Crossmatch: No Data to Display Complete Blood Count: No Data to Display Complete Metabolic Panel: No Data to Display Liver Function Panel: No Data to Display Coagulation Panel: No Data to Display Cardiac Panel: No Data to Display Arterial Blood Gas: No Data to Display Venous Blood Gas: No Data to Display Pancreas Panel: No Data to Display Thyroid Panel: No Data to Display Infectious Disease: Coronavirus (COVID-19)(PCR) Negative (Negative) 04/30/21 00:54 04/30/21 Coronavirus 2019 Source Nasal/Nares 04/30/21 00:54 04/30/21 Blood Cultures: No Data to Display Toxicology Panel: No Data to Display Panel: No Data to Display Imaging and Studies Imaging and Studies Study information below may be from another EMR and interpreted by another provider. Please see original notes in EMR for more complete details. Stress Test Summary: DATE OF SERVICE: 09/04/17 *[facility]* *[facility]* Stress Electrocardiography Impressions: Normal study after maximal exercise. Anesthesia Assessment and Plan Anesthesia History Personal History: Other (Local anesthetics do not work ) Family History: No Family History of Anesthesia Complications Exercise Tolerance Exercise Tolerance: Metabolic Equivalents>4 Pertinent Negatives Pertinent Negatives: No Symptoms of GERD, No Major Cardiovascular Symptoms or Complaints, No Major Pulmonary Symptoms or Complaints and No History of CVA/TIA Cardiac & Pulmonary Exam Cardiac Exam: Normal S1/S2 Heart Sounds Pulmonary Exam: Clear Bilateral Breath Sounds Implantable Cardiac Device Does patient have a Pacemaker or an ICD?: No Airway Exam Known Difficult Airway: No Mallampati Class: 2 Mouth Opening: Normal (> 3cm) Thyromental Distance: Greater than 3 cm Neck Range of Motion: Full ROM Neck Circumference: Normal Teeth Condition: Normal Dentition ASA Classification ASA Score: ASA 2 Emergency Case?: No NPO Status NPO Status: NPO Clears >2 hours, Solids >8 hours Status Status: Negative HCG Anesthesia Plan Resuscitation Status: Full Code Anesthesia Technique: General Anesthesia Airway Planned: Natural Airway Monitors Used: Standard Monitors
[2021-05-01 09:01] VITALS: BMI 28.6
--- NOTE | 2021-05-01 09:25 | HPE_ITS ---
Assessment and Plan Assessment and plan (1) Right carpal tunnel syndrome: Status: Acute Assessment and plan: Liz is a 40-year-old female who has right carpal tunnel syndrome. She is status post left endoscopic carpal tunnel release. Once again, I reviewed the risks of the procedure to include, but not limited to, bleeding, infection, palmar pain, stiffness, damage to nerves, damage to vessels, damage to tendons, weakness, recurrence, and incomplete release. Given these risks, Liz desires to proceed. History of Present Illness History of Present Illness Chief Complaint: Right Carpal Tunnel Syndrome Narrative: Liz is a 40-year-old female who has bilateral carpal tunnel syndrome. She is status post left carpal tunnel release with good results. She is here today for right carpal tunnel. She has been previously seen in the office for this. Please see the previous office notes. She denies any chest pain or shortness of breath. She has no sick contacts or she is COVID-19 negative. Review of Systems All systems reviewed & are unremarkable except as noted in HPI and below PFSH All Active Problems Right carpal tunnel syndrome (Acute) Essential hypertension (Chronic 02/16/13) Hypothyroidism (Chronic 02/16/13) VAUGHN age 19 08/24/13 pt states dose is 200mcg/day. TSH 9.6. Additional dose of 25mcg/day ordered. Needs TSH in 6w. TPO antibodies (+), requiring high dose of levothyroxine Low back pain (Chronic 02/16/13) Since 20s; 10/04/2015 B/L L5-S1 facet inj (Dr. 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 Silveira) Knee pain (Acute 02/16/13) Bilateral hand numbness (Acute) Hypocalcemia (Acute) Mother currently breast-feeding (Acute) Medical History COVID-19 01/23/21- body aches, lost sense of taste, headache. Is at 8 week bharat 03/20/21 H/O radioactive iodine thyroid ablation History of anesthesia problem Pt. states she had a failed spinal last , and required general anesthesia last time. Hypertension Dx 2009 - d/c'd Lisonopril/HCTZ with this Hypothyroid in , antepartum s/p Radioactive Iodine Ablation. Initial dose of Synthroid in 175mcg. Increased to 225mcg on 08/18/13 Lump of axilla Surgical History [place]ide[place] 2000 [place]ch [place] Elective repeat 02/02/14-repeat Hx of wisdom tooth extraction Per pt. states she required an extensive amount of novacaine because she stated she felt everything. 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 Current gender identity: female What type of physical activity do you participate in: walking, aerobic, regular exercise, weight lifting and resistance training Duration: 45-60 minutes/day Frequency: daily Seatbelt use: always Helmet use: Yes Drive intox or ride w/intox sales driver: No Water heater temp set <120 deg: Yes Working smoke detector in home: Yes Fire extinguisher in home: Yes Carbon monox detector in home: Yes Firearms in home: Yes Do you feel safe at home: Yes Do you feel safe in your relationship?: Yes History History 4 Para 3 Hx # Term Pregnancies 3 Multiple births 0 Hx # Pregnancies 0 Ectopic pregnancies 0 AB induced 0 Hx Number of Living Children 4 AB spontaneous 0 Past Pregnancies Del. Date GA/Weeks # Outcome Route Wgt Sex Labor Lgth Anesthes ia Location Prov Complic 04/28/00 39 No Successful 3316.894 g Male w/[place] ,[place] 01/09/09 39 No Successful 3855.535 g Male 0 [facility] [place]. 02/02/14 39 No Successful 3316.894 g Female [address] Lombardi 12/22/19 37 No Successful 3160.008 g Male Delivery Date: 04/28/00 c/s for breech. Chastity Squires Delivery Date: 01/09/09 repeat c/s. KimblaspatriciaChastity Delivery Date: 02/02/14 repeat c/s. Spinal not effective and general anesthesia Lexii Stephens Delivery Date: 12/22/19 No notes to display Meds Allergies and Home Medications Allergies Allergy/AdvReac Type Severity Reaction Status Date / Time No Known Drug Allergies Allergy Verified 05/01/21 08:33 Home Medications Medication Instructions Recorded Confirmed Type Excedrin Migraine 1 ea PO PRN cap 02/22/15 05/01/21 History melatonin 5 mg capsule 5 mg PO PRN cap 09/13/19 05/01/21 History labetalol 100 mg tablet 100 mg PO BID #180 tab 07/27/20 05/01/21 Rx levothyroxine 200 mcg tablet See Rx Instructions PO DAILY #90 10/20/20 05/01/21 Rx tab-cap cholecalciferol (vitamin D3) 50 150 mcg PO DAILY cap 03/09/21 05/01/21 History mcg (2,000 unit) capsule prenat.vits,silvia,[id number]-exxp-zrpwh 1 tab PO DAILY #90 tab-cap 03/09/21 05/01/21 Rx acetaminophen 1,000 mg PO TID #90 tab 03/20/21 05/01/21 Rx hydrocodone-acetaminophen 1 tab PO Q6H PRN #3 tab 03/20/21 05/01/21 Rx ibuprofen 600 mg PO TID PRN #90 tab 03/20/21 05/01/21 Rx levothyroxine 25 mcg tablet See Rx Instructions PO DAILY #90 04/26/21 05/01/21 Rx tab-cap Exam Resp Effort & Inspection: normal respiratory effort Auscultation: clear to auscultation bilaterally Cardio Rate: regular rate Rhythm: regular rhythm Results Last Vital Signs Temp 36.5 C 05/01/21 08:45 Pulse 78 05/01/21 08:45 Resp 20 05/01/21 08:45 BP 126/97 H 05/01/21 08:45 Pulse Ox 99 05/01/21 08:45
[2021-05-01] MEDS: ceFAZolin 2 GM/50 ML BAG IVPB (09:36)
[2021-05-01] MEDS: Sodium Bicarbonate 50 MEQ/50 ML VIAL (09:42)
--- NOTE | 2021-05-01 09:58 | W.ANESPOSTOP ---
Postoperative Evaluation Date, Time and Location Date Performed: 05/01/21 Time Performed: 09:58 Patient Location: Day Surgery Unit Vital Signs Most Recent Imported Vital Signs: Most Recent Vital Signs Temp Pulse Resp BP Pulse Ox 36.5 C 78 20 126/97 H 99 05/01/21 08:45 05/01/21 08:45 05/01/21 08:45 05/01/21 08:45 05/01/21 08:45 Most Recent Manually Entered Vital Signs: Adult Blood Pressure: 126/98 Heart Rate: 83 Respirations: 12 Oxygen Saturation (%): 98 Temperature (C): 36.3 C Pain Score (0-10 Scale): 0 Pain Score Most Recent Pain Score: Most Recent Pain Score Pain Level 0 05/01/21 08:45 Assessment Mental Status: Awake (Alert & Oriented to Patient Baseline) Airway and Respiratory Function: Patent airway with normal (patient baseline) respiratory exam Cardiovascular Function: Hemodynamically Stable Hydration Status: Adequately Hydrated Nausea & Vomiting: No Nausea or Vomiting Pain: Pt. Denies Any Pain Peripheral Nerve Block: Patient did not receive a nerve block
[2021-05-01 09:59] VITALS: BP 126/98; PULSE 83; RESP 12; TEMPC 36.3; O2SAT 98
[2021-05-01 10:05] VITALS: BP 126/97; PULSE 78; RESP 20; TEMP 36.5; O2SAT 99
[2021-05-01 10:28] VITALS: BP 140/92; PULSE 67; RESP 18; TEMP 36.1; O2SAT 97
[2021-05-01 11:01] VITALS: BP 148/102; PULSE 72; RESP 18; TEMP 36.4; O2SAT 100
[2021-05-01 11:31] VITALS: BP 144/93; PULSE 84; RESP 18; TEMP 36.2; O2SAT 97
--- NOTE | 2021-05-01 22:11 | W.PM.OP ---
Date of service: 05/01/21 Time of Service: 09:51 Operative Note Operative Note DATE OF PROCEDURE: 05/01/21 PRE-OP DIAGNOSIS: Right Carpal Tunnel Syndrome POST-OP DIAGNOSIS: same PROCEDURE: Right Endoscopic Carpal Tunnel Release SURGEON: Naga Stewart ANESTHESIA TYPE: General:No Airway Refer to Anesthesia Record ESTIMATED BLOOD LOSS: 0 PATHOLOGY: none sent TOURNIQUET TIME: 6 COMPLICATIONS: None Patient was transported to: same day Patient's condition: stable Indications: I have seen Liz in clinic for symptoms of carpal tunnel syndrome. The numbness, tingling, and pain limited function. Clinical exam findings with nerve conduction tests confirmed the diagnosis of carpal tunnel syndrome. Nonoperative measures such as bracing, time, activity modifications had been tried but disability and pain persisted. She had previous ECTR on the left side with good resuts. Once again, I reviewed the risks of the procedure to include, but not limited to, bleeding, infection, pain, stiffness, incomplete release, damage to nerves or vessels, persistent numbness, recurrence. Despite these risks, the patient elected to proceed. Findings: There was tightened carpal tunnel. This was dilated and released successfully with the endoscopic with increased space within the tunnel. The antebrachial fascia was released proximally freeing the median nerve at the wrist. Procedure Description: Liz was greeted in the preoperative holding area where the correct side was identified and marked. The consent was reviewed with the patient and signed. The history and physical was updated. All questions were answered. She was taken back to the operating room. The patient was placed into the supine position on the operating room table with the right arm on an arm board. A nonsterile tourniquet was placed high onto the arm. All bony prominences were well padded. Prophylactic antibiotics in the form of Cefazolin were administered. The right arm was then prepped with Chloraprep and draped in a standard fashion with stockinette and extremity drape. A timeout to confirm correct identity, side and site, procedure, allergies, anesthesia, and medical concerns was performed. The surgical site was marked in the volar wrist creases in line with the radial border of the fourth ray. This area was anesthetized with approximately 6cc of 1% Lidocaine. The limb was then exsanguinated with an Esmarch. The skin was incised with a 15 blade, approximately 1cm. The skin only was cut and the deeper tissue was dissected bluntly with a tenotomy scissor, avoiding passing nerve and venous structures. The fascia was penetrated and opened bluntly. A two-prong skin hook was placed under this proximal fascial edge. A series of hamate finders were used to identify and dilate the carpal tunnel. Synovial elevator was used to free synovial attachments to the underside of the transverse carpal ligament. My thumb was kept in the palm to bharat the distal extent of the carpal tunnel and correctly position the hand. The Microaire endoscope was inserted without difficulty and without resistance. Excellent visualization showed horizontally running fibers of the transverse carpal ligament (TCL). The distal extent of the TCL was visualized and the end of the scope palpated with the thumb. The blade was elevated and withdrawn from distal to proximal. The TCL was split into two flaps. The endoscope was reinserted to confirm complete release and any remnant ligament was incised. The scope was withdrawn and the proximal aspect of the carpal tunnel was grossly inspected and appeared release with the median nerve visible. The antebrachial fascia at the level of the wrist was then freed from the overlying skin and then the underlying median nerve with blunt dissection. This was transected longitudinally for about 3cm proximal to the wrist incision. The wound was then irrigated with easy flow of irrigant distally and proximally. The incision was closed with a single 4-0 Nylon suture. The wound was dressed with Xeroform, Gauze, Kerlix and Ranjan. The tourniquet was deflated with the initial dressing and held with some pressure. Blood flow returned easily to all digits with capillary refill less than 2 seconds. The patient tolerated the procedure well and was returned to the Same Day Surgery area in a stable condition suffering no known complication.
== END 2021-05-01 12:11 | disposition home or self-care (01) ==
LOC: SUR 08:07
PROVIDERS: PCP Nurse Practitioner Family; Visit Provider Student in an Organized Health Care Education/Training Program
PROC: 01N54ZZ Release Median Nerve, Percutaneous Endoscopic Approach (ICD-10-PCS; CPT 29848; principal; 2021-05-01 09:45)
DX: G56.01 Carpal tunnel syndrome, right upper limb (principal); I10 Essential (primary) hypertension; E83.51 Hypocalcemia
CPT/HCPCS: 29848; 81025; J0690; J1100; J1885; J2001; J2250; J2405

== ENCOUNTER 2021-06-29 12:42 | Outpatient (CLI) | payer MEDICAID, SELFPAY ==
--- NOTE | 2021-06-29 09:30 | DI.RAD_ITS ---
Exam(s) XR THORACIC SPINE COMPLETE EXAM: XR THORACIC SPINE COMPLETE CLINICAL HISTORY: Likely T10 L sided thoracic radiculopathy M54.14. TECHNIQUE: 2D digital imaging was performed. COMPARISON: No exams were available for comparison FINDINGS: Three views No evidence of fracture nor listhesis. There is mild disc space narrowing at a few disc spaces in mi d upper thoracic spine. No prominent scoliosis. No prominent kyphosis. No osseous lesions. No abn ormal paraspinal lines IMPRESSION: Mild findings as described above. DATA REPOSITORY: RADIATION DOSE DELIVERED:
== END 2021-06-29 13:02 ==
PROVIDERS: PCP Nurse Practitioner Family; Visit Provider Family Medicine
DX: M54.14 Radiculopathy, thoracic region (principal)
CPT/HCPCS: 72072

== ENCOUNTER 2021-07-05 02:26 | Outpatient (CLI) | payer MEDICAID, SELFPAY ==
[2021-07-05 11:14] LABS: ALT 22 U/L (14-59); AST 8 U/L (15-37); Albumin 4.2 g/dL (3.4-5.0); Alkaline Phosphatase 54 U/L (46-116); Anion Gap 9.7 mmol/L (3-11); BUN 20 mg/dL (7-18); Bilirubin, Total 0.7 mg/dL (0.2-1.0); CO2 28.3 mmol/L (21.0-32.0); CREATININE 0.8 mg/dL (0.55-1.02); Calcium 8.4 mg/dL (8.5-10.1); Chloride 105 mmol/L (98-107); Glucose 88 mg/dL (74-106); Potassium 4.3 mmol/L (3.5-5.1); Sodium 143 mmol/L (136-145); Total Protein 7.3 g/dL (6.4-8.2)
== END 2021-07-05 02:27 | disposition home or self-care (01) ==
LOC: LBO 02:26
PROVIDERS: PCP Nurse Practitioner Family; Visit Provider Nurse Practitioner Family
DX: E83.51 Hypocalcemia (principal)
CPT/HCPCS: 36415; 80053

== ENCOUNTER → 2021-07-31 09:26 | Outpatient (CLI) | payer MEDICAID, SELFPAY ==
--- NOTE | 2021-07-31 06:45 | DI.MRI_ITS ---
Exam(s) MR THORACIC SPINE WO EXAM: MR THORACIC SPINE WO CLINICAL HISTORY: Suspect T10 thoracic radiculopathy, M54.14 TECHNIQUE: Multiplanar multisequence MRI of the thoracic spine was performed without intravenous con trast. COMPARISON: CR XR THORACIC SPINE COMPLETE from 06/29/2021 FINDINGS: OSSEOUS: There are no fractures nor listhesis of the vertebral bodies. There is a benign intraosseou s hemangioma in the left side of the T3 vertebral body. There are no ominous osseous lesions. RELEVANT DISC SPACE FINDINGS: On the uppermost images there is a posterolateral left disc protrusion at what appears to be C6-7 lev el. This indents the left side of the thecal sac. T5-6: There is a disc protrusion at this level slightly left of center which indents the thecal sac. On the sagittal T2 images there is a subtle suggestion of signal abnormality in the cord at this lev el but this is not substantiated on the T2 axial images. Osseous canal dimensions are within normal limits at this level. No significant foraminal stenosis. No facet arthropathy. T6-7: There is also a disc protrusion at this level which is relatively central. Also indents the th ecal sac at this level. Osseous canal dimensions are within normal limits. No foraminal stenosis at this level. No facet arthropathy. T7-8: There is a posterolateral right disc protrusion at this level which indents the thecal sac. Ce ntral canal dimensions are within normal limits. No foraminal stenosis. No facet arthropathy at thi s level. T8-9: There is a central subligamentous disc herniation at this level which indents the thecal sac bu t not the spinal cord at this level. Central canal dimensions are within normal limits. No foramina l stenosis nor facet arthropathy evident at this level. THORACIC SPINAL CORD: There is no evidence of focal cord swelling nor atrophy in the thoracic spinal cord. No evidence of enlargement of the central canal of the cord. No evidence of cord dysraphism. There is no evidence of mass at the conus medullaris. The position of the conus medullaris is at no rmal T12-L1 level. There is no evidence of conus mass. PARASPINAL TISSUES: No significant masses nor fluid collections evident. IMPRESSION: 1. Multilevel disc protrusions in the thoracic spinal column as described individually above. These appear to indent the thecal sac but without prominent indentation of the spinal cord nor osseous huong l stenosis. Also no evidence of foraminal stenosis nor significant facet arthropathy in the thoracic spinal column. 2. Incidentally noted is a posterolateral left disc protrusion at C6-7 level which is the uppermost f ield of view of this thoracic spine study. 3. Incidentally noted is a benign intraosseous hemangioma in the left side of T3 vertebral body. The re are no ominous osseous lesions. DATA REPOSITORY:
== END ==
PROVIDERS: PCP Nurse Practitioner Family; Visit Provider Family Medicine
DX: D18.09 Hemangioma of other sites (principal); M51.24 Other intervertebral disc displacement, thoracic region; M50.223 Other cervical disc displacement at C6-C7 level
CPT/HCPCS: 72146

== ENCOUNTER 2022-03-28 02:21 | Outpatient (CLI) | payer MEDICAID, SELFPAY ==
[2022-03-28 08:28] LABS: Abs Immature Grans 0.02 10^3/uL (0.0-0.06); Absolute Basophil Count 0.03 10^3/uL (0.0-0.2); Absolute Eosinophil Count 0.15 10^3/uL (0.0-0.7); Absolute Monocyte Count 0.61 10^3/uL (0.1-0.8); Basophils % 0.4; Eosinophils % 2.2; HCT 42.6 % (36.0-46.0); HGB 14.3 g/dL (11.2-15.7); Immature Grans % 0.3; Lymphocytes % 36.2; MCH 29.4 pg (27.0-33.0); MCHC 33.6 % (32.0-36.0); MCV 88 fL (80-95); MPV 9.7 fL (8.0-11.0); Monocytes % 8.8; Neutrophils % 52.1; Platelet Count 255 10^3/uL (130-400); RBC 4.86 10^6/uL (3.93-5.22); RDW 12.1 % (11.7-14.6); RDW-SD 38.9 fL; WBC 6.91 10^3/uL (4.4-10.8)
[2022-03-28 09:14] LABS: ALT 24 U/L (14-59); AST 17 U/L (15-37); Albumin 3.8 g/dL (3.4-5.0); Alkaline Phosphatase 51 U/L (46-116); BUN 21 mg/dL (7-18); Bilirubin, Total 0.4 mg/dL (0.2-1.0); CREATININE 0.8 mg/dL (0.55-1.02); Calcium 8.6 mg/dL (8.5-10.1); Chloride 105 mmol/L (98-107); Estimated GFR 94.87 (mL/min/1.73m2); Glucose 96 mg/dL (74-106); Sodium 142 mmol/L (136-145); TSH (W/Ref FT4) 2.14 uIU/mL (0.36-3.74); Total Protein 7.3 g/dL (6.4-8.2)
== END 2022-03-28 02:22 | disposition home or self-care (01) ==
LOC: LBO 02:21
PROVIDERS: PCP Nurse Practitioner Family; Visit Provider Nurse Practitioner Family
DX: R53.83 Other fatigue (principal); E83.51 Hypocalcemia; I10 Essential (primary) hypertension; Z13.1 Encounter for screening for diabetes mellitus; E03.9 Hypothyroidism, unspecified
CPT/HCPCS: 36415; 80053; 84443; 85025

== ENCOUNTER 2022-05-01 04:01 | Outpatient (CLI) | payer MEDICAID, SELFPAY ==
[2022-05-01 08:26] LABS: Anion Gap 8.3 mmol/L (3-11); BUN 23 mg/dL (7-18); CO2 29.7 mmol/L (21.0-32.0); CREATININE 0.8 mg/dL (0.55-1.02); Calcium 9.1 mg/dL (8.5-10.1); Chloride 102 mmol/L (98-107); Estimated GFR 94.87 (mL/min/1.73m2); Glucose 93 mg/dL (74-106); Potassium 3.5 mmol/L (3.5-5.1); Sodium 140 mmol/L (136-145)
== END 2022-05-01 04:02 | disposition home or self-care (01) ==
LOC: LBO 04:01
PROVIDERS: PCP Nurse Practitioner Family; Referring Provider Nurse Practitioner Family; Visit Provider Nurse Practitioner Family
DX: I10 Essential (primary) hypertension (principal)
CPT/HCPCS: 36415; 80048

== ENCOUNTER → 2023-01-06 03:51 | Outpatient (CLI) | payer MEDICAID, SELFPAY ==
--- NOTE | 2023-01-06 07:00 | DI.MAMMO_ITS ---
Exam(s) MAMMO SCREENING EXAM: MAMMO SCREENING CLINICAL HISTORY: screening,z12.39 TECHNIQUE: Bilateral full field digital CC and MLO mammographic images were obtained with 3D tomosyn thesis and utilizing computer aided detection (CAD). COMPARISON: This is a baseline examination. FINDINGS: Masses/Architectural Distortion: None seen. Microcalcifications: No suspicious pleomorphic-type are seen. Skin Thickening/Nipple Retraction: None. IMPRESSION: 1. No significant interval change with no specific features of malignancy noted. 2. Unless there is more urgent need, screening mammography is recommended, as per [employer] guidelines. BI-RADS Category 1 - Negative Breast Density - Category B - Scattered areas of fibroglandular density Breast density category C or D implies that the patient has dense breast tissue. Dense breast tissue is very common and is not abnormal but dense breast tissue can make it harder to find cancer on a ma mmogram. Also, dense breast tissue may increase their breast cancer risk. This information about the result of the mammogram report was provided to the patient to raise their awareness. Use this report when you speak with the patient about their risks for breast cancer, which includes their family hist ory. At that time, you may recommend for more screening tests (Ultrasound or MRI) as they might be us eful based on their risk. A negative radiographic report should not delay biopsy if a dominant or clinically suspicious mass is present. Up to ten percent of cancers are not identified on mammography. A negative report may reinforce clinical impression. Adenosis and dense breasts may obscure an underlying neoplasm. False positive reports average 6 to 10%. Patient will receive a letter notifying them of these results.
== END ==
PROVIDERS: PCP Nurse Practitioner Family; Visit Provider Nurse Practitioner
DX: Z12.39 Encounter for other screening for malignant neoplasm of breast (principal)
CPT/HCPCS: 77063; 77067

== ENCOUNTER 2023-05-12 04:58 | Outpatient (CLI) | payer SELFPAY ==
[2023-05-12 08:27] LABS: Anion Gap 9.7 mmol/L (3-11); BUN 18 mg/dL (7-18); CO2 28.3 mmol/L (21.0-32.0); CREATININE 0.7 mg/dL (0.55-1.02); Calcium 8.9 mg/dL (8.5-10.1); Calculated LDL 104 mg/dL (<100); Chloride 102 mmol/L (98-107); Cholesterol 163 mg/dL (<200); Estimated GFR 110.67 (mL/min/1.73m2); Glucose 103 mg/dL (74-106); HDL Cholesterol 51 mg/dL (40-60); Potassium 4.2 mmol/L (3.5-5.1); Sodium 140 mmol/L (136-145); TSH (W/Ref FT4) 0.07 uIU/mL (0.36-3.74); Triglyceride 41 mg/dL (<150); Vitamin B12 501 pg/mL (193-986)
== END 2023-05-12 04:59 | disposition home or self-care (01) ==
PROVIDERS: Absent Provider Nurse Practitioner; PCP Nurse Practitioner Family; Referring Provider Nurse Practitioner; Visit Provider Nurse Practitioner
DX: I10 Essential (primary) hypertension (principal); E03.9 Hypothyroidism, unspecified
CPT/HCPCS: 36415; 80048; 80061; 82607; 84439; 84443

== ENCOUNTER 2023-08-09 15:24 | Emergency (ER) | payer SELFPAY ==
[2023-08-09] VITALS (20 sets, daily range): BP systolic 206–268; BP diastolic 112–143; PULSE 67–93; RESP 12–25; TEMP 36.7; O2SAT 97–100
--- NOTE | 2023-08-09 15:30 | RT.EKG_ITS ---
APPROVED REPORT Exam: Resting ECG Reason for Exam: hypertension Patient Location: E HR:71 bpm ECG Measurements Heart Rate 71 AXIS TX 181 P 25 QRSd 98 QRS 24 QT 473 T 10 QTc 515 Conclusion Sinus rhythm 71 LVH no stemi long QTC 515
[2023-08-09] MEDS: Aspirin 325 MG TAB PO (15:49)
--- NOTE | 2023-08-09 16:13 | ED.GENADUL_ITS ---
Discharge Plan Disposition Patient Disposition: Home Condition: Stable Discharge Details Clinical Impression: Hypertension Primary Care Provider: Mela Barron ED Provider: Reynaldo Dalton Home Meds and New Rx's Prescriptions: No Action melatonin 1 mg tablet 2 mg PO HS PRN Rx Instructions: Pure zzzQuil hydrochlorothiazide 25 mg tablet 25 mg PO DAILY AM Qty: 90 3RF fluticasone propionate 50 mcg/actuation spray,suspension 2 spray intranasal DAILY Qty: 16 6RF Rx Instructions: administer into each nostril citalopram 40 mg tablet 40 mg PO DAILY Qty: 90 1RF trazodone 50 mg tablet See Rx Instructions PO QHS PRN (Reason: sleep) Qty: 60 2RF Rx Instructions: 1-2 tabs at HS PRN Excedrin Migraine 1 EACH tablet 1 ea PO PRN levothyroxine 200 mcg tablet 200 mcg PO DAILY Qty: 90 3RF Discharge Instructions Instructions: Hypertension (ED) Additional Instructions: Start Norvasc 10 mg daily Increase your hydrochlorothiazide to 50 mg daily Take your blood pressure once daily and keep a log Follow-up with your PCP this coming week for reevaluation of your blood pressure. Return to the emergency department if you develop chest pain, shortness of breath or severe headache HPI General Date/Time Provider Initiated Documentation: 08/09/23 15:41 . Limitations to Documentation: no limitations . Information obtained by: patient . HPI Narrative: 43-year-old female with past medical history of hypertension, hypothyroidism presents for evaluation of elevated blood pressure. She reports that she was at [facility] this morning and took her blood pressure and it was noted to be significantly elevated. She states that she has been instructed by her primary care provider to check her blood pressure occasionally, but she has not done so because she does not the equipment at home. She denies any chest pain, shortness of breath, headache or visual change. She reports that she felt a little shaky this morning. But otherwise has no symptoms. She denies any alcohol or drug use. Related Data Home Medications Medication Instructions Recorded Confirmed [id number] 250 1 ea PO PRN 02/22/15 07/03/22 mg-250 mg-65 mg tablet (Excedrin Migraine) melatonin 1 mg tablet 2 mg PO HS PRN 12/28/21 07/03/22 fluticasone propionate 50 2 spray intranasal DAILY #16 grams 12/24/22 12/24/22 mcg/actuation nasal spray,suspension hydrochlorothiazide 25 mg tablet 25 mg PO DAILY AM #90 tab-caps 12/24/22 12/24/22 levothyroxine 200 mcg tablet 200 mcg PO DAILY #90 tab-caps 05/13/23 citalopram 40 mg tablet 40 mg PO DAILY #90 tabs 07/28/23 07/28/23 trazodone 50 mg tablet See Rx Instructions PO QHS PRN 07/28/23 07/28/23 sleep #60 tabs Previous Rx's Medication Instructions Recorded fluticasone propionate 50 2 spray intranasal DAILY #16 grams 12/24/22 mcg/actuation nasal spray,suspension hydrochlorothiazide 25 mg tablet 25 mg PO DAILY AM #90 tab-caps 12/24/22 levothyroxine 200 mcg tablet 200 mcg PO DAILY #90 tab-caps 05/13/23 citalopram 40 mg tablet 40 mg PO DAILY #90 tabs 07/28/23 trazodone 50 mg tablet See Rx Instructions PO QHS PRN 07/28/23 sleep #60 tabs Allergies Allergy/AdvReac Type Severity Reaction Status Date / Time No Known Allergies Allergy Verified 07/28/23 09:13 General Stated Complaint: Palpitatns MAYDA: 3 Exam Narrative Exam Narrative: Review of Systems: All systems reviewed & are unremarkable except as noted in HPI and below Well-developed, no acute distress NCAT PERRL, normal conjunctiva RRR, no murmur + Hypertensive Unlabored respiratory effort, clear bilaterally Nondistended abdomen , nontender Extremities w/o deformity, no cyanosis, no edema No rashes or lesions. no focal neurologic deficits Appropriate mood and affect Course Vital Signs Vital signs: Vital Signs Temperature 36.7 C 08/09/23 15:37 Pulse 89 08/09/23 15:37 Respiratory Rate 15 08/09/23 15:37 Blood Pressure 268/143 H 08/09/23 15:37 Pulse Oximetry 99 08/09/23 15:37 Temperature 36.7 C 08/09/23 15:37 Temperature Source Tympanic 08/09/23 15:37 Pulse 72 08/09/23 15:48 Pulse 86 08/09/23 15:50 Respiratory Rate 25 H 08/09/23 15:50 Respiratory Effort Normal 08/09/23 15:50 Blood Pressure 266/130 H 08/09/23 15:48 Blood Pressure Mean 182 08/09/23 15:48 Blood Pressure Position Sitting 08/09/23 15:37 Pulse Oximetry 98 08/09/23 15:50 Oxygen Delivery Method Room Air 08/09/23 15:37 Oxygen Flow Rate 0 08/09/23 15:37 Pain Level 0 08/09/23 15:37 Medical Decision Making Emergent evaluation of elevated blood pressure. Initial differential includes hypertensive emergency, ACS, renal failure. Patient is noted to be severely hypertensive, but does not have any significant symptoms. Her EKG does not demonstrate acute ischemic changes. She does have some signs of LVH which would indicate that she has more longstanding hypertension. I reviewed her medical record and noted last visit her blood pressure was slightly elevated, but not as significant as today. Plan for lab work to evaluate for endorgan damage and blood pressure improvement. Because she is asymptomatic, I do not feel that the patient requires aggressive lowering of her blood pressure given her lack of symptoms. Lab work reviewed. No leukocytosis or significant anemia. She has noted to have low potassium level of 2.9. This was repleted with IV and oral administration. The BNP is slightly above normal limit, but there is no sign of cardiomegaly or pulmonary edema on chest x-ray. Serial troponin testing is negative. Urinalysis obtained, no signs of protein. And her tox screen was also negative. She began complaining of a mild headache and a head CT was ordered. This was unremarkable for any acute intracranial process. The patient received multiple doses of medication and was having a fairly significant amount of anxiety about being in the emergency department which I suspect is contributing to her persistent hypertension. Her headache had resolved, and she had no additional symptoms and workup has been otherwise unremarkable for any signs of acute endorgan damage. At this time I do feel the patient is stable for discharge and I will increase her hydrochlorothiazide and add Norvasc. She is instructed to do daily blood pressure checks and keep a log. Strict return precautions have been discussed with the patient who expressed understanding. And she will follow-up closely with her PCP in a few days.. Medical Records Medical records reviewed: Yes I reviewed the patient's medical records. Lab Data Lab results reviewed: Yes I reviewed the patient's lab results. Quality:[facility] Health Related Social Needs: No Data to Display Critical Care Time Critical Care Time Critical Care Time: Yes Total Critical Care Time: 37 Attestation: CRITICAL CARE Upon my evaluation, this patient had a high probability of imminent or life- threatening deterioration due to hypertension which required my direct attention, intervention, and personal management. I have personally provided 37 minutes of critical care time exclusive of time spent on separately billable procedures. Time includes review of laboratory data, radiology results, discussion with consultants, and monitoring for pot ential decompensation. Interventions were performed as documented above [facility] All Active Problems (Updated 08/09/23 @ 19:34 by Reynaldo Dalton MD) Hypertension (Chronic) Right carpal tunnel syndrome (Acute) s/p ECTR 05/01/21 Essential hypertension (Chronic 2008) Hypothyroidism (Chronic 02/16/13) VAUGHN age 19 08/24/13 pt states dose is 200mcg/day. TSH 9.6. Additional dose of 25mcg/day ordered. Needs TSH in 6w. TPO antibodies (+), requiring high dose of levothyroxine Low back pain (Chronic 02/16/13) Since 20s; 10/04/2015 B/L L5-S1 facet inj (Dr. 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 Silveira) Knee pain (Acute 02/16/13) Medical History Herniation of intervertebral disc of thoracic region COVID-19 01/23/21- body aches, lost sense of taste, headache. Is at 8 week bharat 03/20/21 History of anesthesia problem Pt. states she had a failed spinal last , and required general anesthesia last time. H/O radioactive iodine thyroid ablation Lump of axilla Hyperlipidemia (09/17/17) Resolved with 07/2018 lipid panel Hypothyroid in , antepartum s/p Radioactive Iodine Ablation. Initial dose of Synthroid in 175mcg. Increased to 225mcg on 08/18/13 Surgical History Left carpal tunnel syndrome S/P ECTR: 03/20/2021 S/P repeat low transverse Hx of wisdom tooth extraction Per pt. states she required an extensive amount of novacaine because she stated she felt everything. [place]ympanoplasty I section 2000 [place]. Breech 2008 [place]. Elective repeat 02/02/14-repeat Adenoidectomy Family History Mother Rheumatoid arthritis Graves disease Fibromyalgia Hypertension Father Throat cancer Gallstones Colon cancer Social History Smoking/Tobacco Use Status: Never Second Hand Exposure: No Smoking risk assessment performed?: Yes Alcohol Intake: never Drug use: Never Substance use type: does not use Caregiver/Support person: No Household members: spouse and children Number of Children: 4 Communication Needs: None current occupation: [employer] Pets and animals: Yes Pets and animals: dog(s) and other Details: 2 ducks Sexually active: Yes Do you think of yourself as: straight/heterosexual Current gender identity: female What is your relationship status?: How often do you talk on the phone with friends or family?: twice per week How often do you get together with friends or relatives?: three or more times per week Panel score (0-1 are the most socially isolated patients): 2 What type of physical activity do you participate in: walking, aerobic, regular exercise, weight lifting and resistance training Duration: 45-60 minutes/day Frequency: daily Ginna/Moravian: Druze Special ginna needs: No Seatbelt use: always Helmet use: Yes Drive intox or ride w/intox team driver: No Water heater temp set <120 deg: Yes Working smoke detector in home: Yes Fire extinguisher in home: Yes Carbon monox detector in home: Yes Firearms in home: Yes Do you feel safe at home: Yes Do you feel safe in your relationship?: Yes History History 4 Para 4 Hx # Term Pregnancies 4 Multiple births 0 Hx # Pregnancies 0 Ectopic pregnancies 0 AB induced 0 Hx Number of Living Children 4 AB spontaneous 0 Past Pregnancies Del. Date GA/Weeks # Preg Succ Route Wgt Sex Labor Lgth Anesth esia Location [facility] 04/28/00 39 No 3316.894 g [place] w/o ,[place] 01/09/09 39 No 3855.535 g [place] 0 [place] 02/02/14 39 No 3316.894 g Female [address] Lombardi 12/22/19 37 No 3160.008 g Male Delivery Date: 04/28/00 Last Updated by: Chastity Squires CNM c/s for breech. Delivery Date: 01/09/09 Last Updated by: Chastity Squires CNM repeat c/s. Delivery Date: 02/02/14 Last Updated by: Lexii Stephens M.D. repeat c/s. Spinal not effective and general anesthesia
[2023-08-09 16:19] LABS: Abs Immature Grans 0.04 10^3/uL (0.0-0.06); Absolute Basophil Count 0.03 10^3/uL (0.0-0.2); Absolute Eosinophil Count 0.05 10^3/uL (0.0-0.7); Absolute Lymphocyte Count 2.67 10^3/uL (1.2-3.4); Absolute Neutrophil Count 5.65 10^3/uL (1.2-6.7); Basophils % 0.3 %; Eosinophils % 0.5 %; HCT 44.3 % (36.0-46.0); Immature Grans % 0.4 %; Lymphocytes % 29.2 %; MCH 28.8 pg (27.0-33.0); MCHC 33.9 % (32.0-36.0); MCV 85 fL (80-95); MPV 9.8 fL (8.0-11.0); Monocytes % 7.7 %; Neutrophils % 61.9 %; Platelet Count 298 10^3/uL (130-400); RBC 5.21 10^6/uL (3.93-5.22); RDW 11.9 % (11.7-14.6); RDW-SD 36.3 fL; WBC 9.14 10^3/uL (4.4-10.8)
[2023-08-09] MEDS: hydrALAZINE 20 MG/ML VIAL 10 MG IVP ×2 (16:29→17:38)
--- NOTE | 2023-08-09 16:30 | DI.RAD_ITS ---
Exam(s) XR CHEST 2V PA LATERAL EXAM: XR CHEST 2V PA LATERAL CLINICAL HISTORY: hypertension. TECHNIQUE: 2D digital imaging was performed. COMPARISON: CR XR ribs BI include chest from 08/04/2018 FINDINGS: 2 views: Heart size is normal. The mediastinum is not widened. Lungs are clear. No infiltrates nor pleural effusions. IMPRESSION: No acute pulmonary findings. DATA REPOSITORY: RADIATION DOSE DELIVERED:
[2023-08-09 16:36] LABS: ALT 33 U/L (14-59); AST 19 U/L (15-37); Albumin 4.2 g/dL (3.4-5.0); Alkaline Phosphatase 76 U/L (46-116); Anion Gap 11.9 mmol/L (3-11); BUN 15 mg/dL (7-18); Bilirubin, Total 0.6 mg/dL (0.2-1.0); CO2 29.1 mmol/L (21.0-32.0); CREATININE 0.8 mg/dL (0.55-1.02); Calcium 8.7 mg/dL (8.5-10.1); Chloride 98 mmol/L (98-107); Glucose 129 mg/dL (74-106); Magnesium 2.1 mg/dL (1.8-2.4); NT-proBNP 339 pg/mL (<300); Sodium 139 mmol/L (136-145); Total Protein 8.5 g/dL (6.4-8.2); Troponin I < 50 ng/L (< or =60)
[2023-08-09 16:36] LABS: *AMPHETAMINES SCREEN URINE Negative (Negative); *BARBITURATES SCREEN URINE Negative (Negative); *BENZODIAZEPINES SCREEN URINE Negative (Negative); Cannabinoids THC Negative (Negative); Cocaine Screen,Urine Negative (Negative); METHADONE URINE SCREEN Negative (Negative); OPIATES URINE SCREEN Negative (Negative); Tricyclic Antidepressants Negative (Negative)
[2023-08-09 16:39] LABS: Potassium 2.9 mmol/L (3.5-5.1)
[2023-08-09] MEDS: Potassium Chloride Liquid 20 MEQ PKT 40 MEQ PO (16:57)
[2023-08-09] MEDS: POTASSIUM CHLORIDE 10 MEQ/100 ML BAG 100 MEQ IVINF (17:16)
[2023-08-09] MEDS: amLODIPine 10 MG TAB PO ×2 (17:17→20:05)
[2023-08-09] MEDS: hydroCHLOROthiazide 25 MG TAB PO ×2 (17:20→20:05)
--- NOTE | 2023-08-09 17:45 | DI.VRAD_ITS ---
PROCEDURE INFORMATION: Exam: XR Chest Exam date and time: 08/09/2023 5:09 PM Age: 43 years old Clinical indication: Other: High BP TECHNIQUE: Imaging protocol: Radiologic exam of the chest. Views: 2 views. COMPARISON: CR XR ribs BI include chest 08/04/2018 9:12 AM FINDINGS: Lungs: Unremarkable. No consolidation. Pleural spaces: Unremarkable. No pleural effusion. No pneumothorax. Heart/Mediastinum: Unremarkable. No cardiomegaly. Bones/joints: Unremarkable. IMPRESSION: No acute findings. Dictated and Authenticated by: Bonifacio Bundy MD. Ordering:[facility] Sha Jean Baptiste MD
--- NOTE | 2023-08-09 18:00 | DI.CT_ITS ---
Exam(s) CT HEAD WO EXAM: CT HEAD WO CLINICAL HISTORY: headache. TECHNIQUE: Imaging Protocol: Axial computed tomography images with coronal and sagittal reformatted images were created and reviewed COMPARISON: No exams were available for comparison FINDINGS: There are no skull fractures. There is no fluid in the visualized paranasal sinuses. There is no evidence of intracranial hemorrhage, mass effect, or shift of midline structures. There are no extra-axial fluid collections. The ventricles are not enlarged or shifted and there is no blo od within the ventricular system nor within the basal cisterns. IMPRESSION: No acute intracranial findings on this noninfused CT scan of the brain. RADIATION DOSE DELIVERED: 794.02mGy.cm Total DLP DATA REPOSITORY: All CT scans at this facility are submitted to the National Radiology Data Registry (NRDR) Dose Index Registry (DIR) with the [employer] (ACR). RADIATION OPTIMIZATION: All CT scans at this facility use at least one of these dose optimization te chniques: automated exposure control; mA and/or kV adjustment per patient size (includes targeted exa ms where dose is matched to clinical indication); or iterative reconstruction.
[2023-08-09 18:26] LABS: Bilirubin Negative (Negative); Blood Negative (Negative); Clarity Sl Cloudy (Clear); Glucose Negative (Negative); Ketones Negative (Negative); Leukocyte Esterase Trace (Negative); Nitrite Negative (Negative); Specific Gravity 1.015 (1.005-1.025); Urobilinogen 0.2 mg/dL (Up to 0.2); pH 6.5 (5-8)
[2023-08-09 18:31] LABS: Bacteria Few HPF (Negative); C & S Indicated? No; Casts Negative LPF (Negative); Crystals Negative HPF (Negative); Epithelial Cells Few HPF (Negative); Mucus Trace (Negative); RBC Negative HPF (0-2)
[2023-08-09 19:12] LABS: Troponin I < 50 ng/L (< or =60)
--- NOTE | 2023-08-09 19:12 | DI.VRAD_ITS ---
PROCEDURE INFORMATION: Exam: CT Head Without Contrast Exam date and time: 08/09/2023 6:44 PM Age: 43 years old Clinical indication: Other: Headache TECHNIQUE: Imaging protocol: Computed tomography of the head without contrast. COMPARISON: No relevant prior studies available. FINDINGS: Brain: Normal. No hemorrhage. Unremarkable white matter. No mass effect. Cerebral ventricles: No ventriculomegaly. Paranasal sinuses: Visualized sinuses are unremarkable. No fluid levels. Mastoid air cells: Visualized mastoid air cells are well aerated. Bones: Unremarkable. No acute fracture. Soft tissues: Unremarkable. IMPRESSION: 1. No acute intracranial abnormality. 2. Unremarkable noncontrast CT head. Dictated and Authenticated by: Bonifacio Bundy MD. [facility] Jean Baptiste MD
== END 2023-08-09 20:06 | disposition home or self-care (01) ==
PROVIDERS: Emergency Provider Emergency Medicine; PCP Nurse Practitioner Family
DX: E87.5 Hyperkalemia (principal); I10 Essential (primary) hypertension; R51.9 Headache, unspecified; E03.9 Hypothyroidism, unspecified
CPT/HCPCS: 80053; 80307; 81025; 82962; 93005; 96365; 96366; 99285; 70450; 71046; 81003; 81015; 83735; 83880; 84484; 85025; 93010; 99284; J0360; J3480

== ENCOUNTER 2023-08-26 14:57 | Outpatient (REF) | payer SELFPAY ==
[2023-08-26 19:57] LABS: Anion Gap 8.3 mmol/L (3-11); BUN 21 mg/dL (7-18); CO2 29.7 mmol/L (21.0-32.0); CREATININE 0.7 mg/dL (0.55-1.02); Calcium 8.7 mg/dL (8.5-10.1); Chloride 100 mmol/L (98-107); Estimated GFR 109.98 (mL/min/1.73m2); Glucose 122 mg/dL (74-106); Potassium 3.2 mmol/L (3.5-5.1); Sodium 138 mmol/L (136-145)
== END 2023-08-26 14:58 | disposition home or self-care (01) ==
LOC: LBN 14:57
PROVIDERS: PCP Nurse Practitioner Family; Visit Provider Nurse Practitioner
DX: I10 Essential (primary) hypertension (principal); E03.9 Hypothyroidism, unspecified
CPT/HCPCS: 80048; 84443

== ENCOUNTER 2023-10-14 22:51 | Emergency (ER) | payer SELFPAY ==
[2023-10-14] VITALS (13 sets, daily range): BP systolic 157–193; BP diastolic 88–119; PULSE 62–80; RESP 11–25; TEMP 36.4; O2SAT 95–99
--- NOTE | 2023-10-14 01:20 | DI.CT_ITS ---
Exam(s) CT CHEST PE CTA EXAM: CT CHEST PE CTA CLINICAL HISTORY: left stabbing pleuritic CP, eval for clot/dissecti. TECHNIQUE: Imaging Protocol: Axial CT angiography was performed with multi-slice acquisition and mu lti-planar and/or 3D reconstructions. CONTRAST MATERIAL: Intravenous: Omnipaque 350 contrast volume:100 mL COMPARISON: CR,XR XR CHEST 2V PA LATERAL from 08/09/2023 FINDINGS: The examination is limited due to patient motion artifact. Tracheobronchial tree: Patent where visualized. Pulmonary parenchyma: No consolidation or dominant measurable mass. No architectural distortion. Pulmonary Arteries: No evidence of filling defect to suggest pulmonary emboli. Mediastinum and Irma: No dominant adenopathy or fluid collection. The esophagus is unremarkable. Pleura: No effusion or pneumothorax. Heart: The heart is not dilated. No coronary artery calcifications are seen. No pericardial effusion. Aorta: Thoracic aorta non-dilated. No evidence of dissection. Upper abdomen: There is a 1.7 cm by 2.2 cm hypodense left adrenal nodule. Hounsfield units are -2.8 most consistent with an adrenal adenoma. No follow-up is recommended. Soft tissues: Unremarkable. Bones: Within normal limits for the patient's age. IMPRESSION: No evidence of pulmonary embolism or aneurysm. RADIATION DOSE DELIVERED: Total DLP DATA REPOSITORY: All CT scans at this facility are submitted to the National Radiology Data Registry (NRDR) Dose Index Registry (DIR) with the [employer] (ACR). RADIATION OPTIMIZATION: All CT scans at this facility use at least one of these dose optimization te chniques: automated exposure control; mA and/or kV adjustment per patient size (includes targeted exa ms where dose is matched to clinical indication); or iterative reconstruction.
--- NOTE | 2023-10-14 22:45 | RT.EKG_ITS ---
APPROVED REPORT Exam: Resting ECG Reason for Exam: chest pain Patient Location: E HR:67 bpm ECG Measurements Heart Rate 67 AXIS NE 201 P 33 QRSd 94 QRS 32 QT 428 T 31 QTc 452 Conclusion Sinus rhythm...normal P axis, V-rate 60- 99 Consider left ventricular hypertrophy...(S V1+R V5/V6) >3.25mV Physician: Sinus rhythm, no significant ST elevation or depression. Inverted T wave in V2, small Q-w ave in lead III, no STEMI. These findings of the Q wave appear unchanged since 08/09/2023.
--- OUTSIDE RECORDS SUMMARY | 2023-10-14 23:24 | XMS_ITS | Encounter Summary ---
Author Organization [facility] Address [address] [place] [address] Care Team Providers Care Cranberry Sorter Name Role Phone Unknown, Provider Primary Care Provider Encounter Details Date Type Department Care Team (Late st Contact Info) Description 07/08/2019 Lab Requisition [facility] Pathology & Laboratory Medicine - [address] [address] Unknown, Provider, Social History Tobacco Use Types Packs/Day Years Used Date Smoking Tobacco: Never Assessed Sex and Gender Information Value Date Recorded Sex Assigned at Not on file Gender Identity Not on file Sexual Orientation Not on file documented as of this encounter Plan of Treatment Not on file documented as of this encounter Procedures Procedure Name Priority Date/Time Associated Diagnosis Comments HEPATITIS C AB W REFLEX TO HCV RNA BY PCR Routine 07/08/2019 11:00 EDT HEPATITIS B SURFACE ANTIGEN Routine 07/08/2019 11:00 EDT documented in this encounter Results * HEPATITIS B SURFACE ANTIGEN (07/08/2019 11:00 EDT) Hep B Surface Ag Negative Negative 07/09/2019 12:25 EDT [facility] Blood VENOUS BLOOD / Unknown 07/08/2019 11:00 EDT 07/08/2019 21:02 EDT Provider Unknown CHEMISTRY & BLOOD GA S ORDERABLES [facility] [address] [place] [address] * HEPATITIS C AB W REFLEX TO HCV RNA BY PCR (07/08/2019 11:00 EDT) Hep C Antibody Negative Negative 07/09/2019 12:25 EDT [facility] Blood VENOUS BLOOD / Unknown 07/08/2019 11:00 EDT 07/08/2019 21:02 EDT Provider Unknown CHEMISTRY & BLOOD GA S ORDERABLES Performing Organization Address City/State/[facility] Co de Phone Number [facility] [address] [place] [id number] documented in this encounter Visit Diagnoses Not on filedocumented in this encounter Care Teams Cranberry Sorter Relationship Specialty Start Date End Date Unknown, Provider, PCP - General 06/24/13 documented as of this encounter
--- OUTSIDE RECORDS SUMMARY | 2023-10-14 23:24 | XMS_ITS | Encounter Summary ---
Author Organization [facility] [place] [address] Care Team Providers Care Trade Manager Name Role Phone None Primary Care Provider Unavailabl e Reason for Visit * Reason Comments Pain Management Encounter Details Date Type Department Care Team (Late st Contact Info) Description 03/31/2018 3:30 PM EST Office [place] [address] Pino Morgan MD [facility] [place] [address] Chronic midline low back pain without sciatica Social History Tobacco Use Types Packs/Day Years Used Date Smoking Tobacco: Never Smokeless Tobacco: Never Sex and Gender Information Value Date Recorded Sex Assigned at Not on file Gender Identity Not on file Sexual Orientation Not on file documented as of this encounter Last Filed Vital Signs Vital Sign Reading Time Taken Comments Blood Pressure 141/95 03/31/2018 4:00 PM EST Pulse 66 03/31/2018 4:00 PM EST Temperature - - Respiratory Rate - - Oxygen Saturation 99% 03/31/2018 4:00 PM EST Inhaled Oxygen Concentration - - Weight - - Height - - Body Mass Index - - documented in this encounter Progress Notes * Pino Morgan MD - 03/31/2018 3:30 PM EST Patient is here for baseline exam for Intracept study. Nothing has change in her medical condition and her physical exam is unchanged and normal. documented in this encounter Plan of Treatment Not on file documented as of this encounter Visit Diagnoses Diagnosis Chronic midline low back pain without sciatica documented in this encounter Care Teams Trade Manager Relationship Specialty Start Date End Date None None PCP - General 02/16/18 07/08/19 documented as of this encounter
--- OUTSIDE RECORDS SUMMARY | 2023-10-14 23:24 | XMS_ITS | Clinical Summary ---
Author Organization [facility] Address [address] [place] [address] Care Team Providers Care Internet Webmaster Name Role Phone Unknown, Provider Primary Care Provider Social History Tobacco Use Types Packs/Day Years Used Date Smoking Tobacco: Never Assessed Sex and Gender Information Value Date Recorded Sex Assigned at Not on file Gender Identity Not on file Sexual Orientation Not on file Plan of Treatment Health Maintenance Due Date Last Done Comments Hepatitis B Vaccine (1 of 3 - 19+ 3-dose series) 06/12 COVID-19 Vaccine ( season) 2022 Hepatitis C Screen Completed 07/08/2019 Procedures Procedure Name Priority Date/Time Associated Diagnosis Comments HEPATITIS C AB W REFLEX TO HCV RNA BY PCR Routine 07/08/2019 11:00 EDT from Last 3 Months or Most Recently Relevant to Health Maintenance Results * HEPATITIS C AB W REFLEX TO HCV RNA BY PCR (07/08/2019 11:00 EDT) Hep C Antibody Negative Negative 07/09/2019 12:25 EDT [facility] Blood VENOUS BLOOD / Unknown 07/08/2019 11:00 EDT 07/08/2019 21:02 EDT Provider Unknown CHEMISTRY & BLOOD GA S ORDERABLES [facility] [address] [place] [address] from Last 3 Months or Most Recently Relevant to Health Maintenance Care Teams Internet Webmaster Relationship Specialty Start Date End Date Unknown, Provider, PCP - General 06/24/13
--- OUTSIDE RECORDS SUMMARY | 2023-10-14 23:24 | XMS_ITS | Encounter Summary ---
[place] [address] Care Team Providers Care Slab Puller Name Role Phone None Primary Care Provider Unavailabl e Encounter Details Date Type Department Care Team (Late st Contact Info) Description 02/16/2018 Telephone [place] [address] Kelsey Willett Social History Tobacco Use Types Packs/Day Years Used Date Smoking Tobacco: Never Smokeless Tobacco: Never Sex and Gender Information Value Date Recorded Sex Assigned at Not on file Gender Identity Not on file Sexual Orientation Not on file documented as of this encounter Plan of Treatment Not on file documented as of this encounter Visit Diagnoses Not on filedocumented in this encounter Care Teams Slab Puller Relationship Specialty Start Date End Date None None PCP - General 02/16/18 07/08/19 documented as of this encounter
--- OUTSIDE RECORDS SUMMARY | 2023-10-14 23:24 | XMS_ITS | Encounter Summary ---
Author Organization [facility] Address [address] [place] [address] Care Team Providers Care Sales Promoter Name Role Phone Unknown, Provider Primary Care Provider Encounter Details Date Type Department Care Team (Late st Contact Info) Description 07/08/2019 Lab Requisition [facility] Pathology & Laboratory Medicine - [facility] [address] [place] [address] Unknown, Provider, Social History Tobacco Use Types Packs/Day Years Used Date Smoking Tobacco: Never Assessed Sex and Gender Information Value Date Recorded Sex Assigned at Not on file Gender Identity Not on file Sexual Orientation Not on file documented as of this encounter Plan of Treatment Not on file documented as of this encounter Procedures Procedure Name Priority Date/Time Associated Diagnosis Comments HIV 1/2 ANTIGEN AND ANTIBODY, 4TH GENERATION Routine 07/08/2019 11:00 EDT documented in this encounter Results * HIV 1/2 ANTIGEN AND ANTIBODY, 4TH GENERATION (07/08/2019 11:00 EDT) HIV 1 and 2 Antibody/p24 Antigen, 4th Generation Negative Negative 07/09/2019 12:25 EDT [facility] Comment: If acute HIV-1 infection is suspected in a high risk ??patient, submit plasma specimen for HIV-1 RNA quantitation test. Fourth Generation assay performed on the Siemens Urbfulaur. Blood VENOUS BLOOD / Unknown 07/08/2019 11:00 EDT 07/08/2019 21:02 EDT Provider Unknown IMMUNOLOGY AND SEROL OGY ORDERABLES [facility] [address] [place] [address] documented in this encounter Visit Diagnoses Not on filedocumented in this encounter Care Teams Sales Promoter Relationship Specialty Start Date End Date Unknown, Provider, PCP - General 06/24/13 documented as of this encounter
--- OUTSIDE RECORDS SUMMARY | 2023-10-14 23:24 | XMS_ITS | Encounter Summary ---
Author Organization [facility] Address [facility] [place] [address] Care Team Providers Care Machine Baster Name Role Phone Mela Barron YADIEL Primary Care Provider [phone] Reason for Visit * Consultation (Routine) - Closed Specialty Diagnoses / Procedures Referred By Simone gonsales Referred To Contact Obstetrics and Gynecology Diagnoses Gestational (-induced) hypertension without significant proteinuria, unspecified trimester Supervision of elderly multigravida, unspecified trimester MATERNAL AGE MATERNAL CONDITION- CHRONIC HTN Procedures TARGETED MORPHOLOGY ULTRASOUND MATERNAL MEDICINE CONSULT Tory Lewis[address] [place] [address] [facility] Occupational Nurse [address] [place] [address] Referral ID Status Reason Start Date Expiration Date V isits Requested Visits Authorized [id number] Closed Consult, Test & Treat Connection Center PCP Updated and/or Approved 07/09/2019 07/08/2020 1 1 Encounter Details Date Type Department Care Team (Latest Contact Info) Description 08/25/2019 11:00 AM EDT Procedure visit Obstetrics [place] [address] Cullen Gonzales MD [facility] DR OBSTETRICS & [place] [address] Antepartum multigravida of advanced maternal age; Hypothyroidism during , antepartum Social History Tobacco Use Types Packs/Day Years Used Date Smoking Tobacco: Never Smokeless Tobacco: Never Alcohol Use Standard Drinks/Week Comments Not Currently 0 (1 standard drink = 0.6 oz pur e alcohol) Comments Yes Sex and Gender Information Value Date Recorded Sex Assigned at Not on file Gender Identity Not on file Sexual Orientation Not on file documented as of this encounter Last Filed Vital Signs Vital Sign Reading Time Taken Comments Blood Pressure 117/79 08/25/2019 9:30 AM EDT Pulse 64 08/25/2019 9:30 AM EDT Temperature 36.5 ??C (97.7 ??F) 08/25/2019 9:30 AM ED T Respiratory Rate - - Oxygen Saturation 100% 08/25/2019 9:30 AM EDT Inhaled Oxygen Concentration - - Weight 87.8 kg (193 lb 9.6 oz) 08/25/2019 9:30 A M EDT Height 170.2 cm (5' 7) 08/25/2019 9:30 AM EDT Body Mass Index 30.32 08/25/2019 9:30 AM EDT documented in this encounter Progress Notes * Cullen Gonzales MD - 08/25/2019 11:00 AM EDT Diagnosis/Maternal Medicine Consult Note Liz Morton is a 39 y.o. year old female who is at 20w0d gestation. She is seen in consultation at the request of Tory Lewis CNM for evaluation due to advanced maternal age. She previously opted for cell free DNA screening, which revealed a low risk of aneuploidy (<1:10,000 for trisomies 21, 18 and 13). She was presents today for ultrasound evaluation. Review of Systems Constitutional:feels well Movement: normal Contractions: none Leaking: None Bleeding: None I reviewed the patient's medical, surgical and family history and updated it as appropriate. I alsoreviewed and updated as appropriate her allergies and medications. I reviewed her record and ultrasound reports to date. Current Outpatient Medications on File Prior to Visit Medication Sig Dispense Refill ??? labetaloL (Normodyne) 100 mg Tablet Take 100 mg by mouth 2 times daily. ??? cholecalciferol, Vitamin D3, (cholecalciferol, Vitamin D3,) 50 mcg (2,000 unit) Capsule Take bymouth. ??? aspirin EC 81 mg Tablet, Delayed Release (E.C.) Take 81 mg by mouth daily. ??? PREPLUS 27 mg iron- 1 mg Tablet take 1 tablet by mouth once daily 0 ??? levothyroxine (SYNTHROID) 200 mcg Tablet 0 ??? hydroCHLOROthiazide (HYDRODIURIL) 50 mg Tablet 0 No current facility-administered medications on file prior to visit. Past Medical History: Diagnosis Date ??? H/O radioactive iodine thyroid ablation ??? Hyperlipidemia ??? Hypertension ??? Hypothyroid ??? Low back pain Patient Active Problem List Diagnosis Code ??? Antepartum multigravida of advanced maternal age O09.529 ??? Hypothyroidism during , antepartum O99.280, E03.9 ??? Hypertension affecting , antepartum O16.9 Ultrasound Date: 08/25/2019 Amniotic fluid volume normal Presentation variable Placenta posterior Growth appropriate for gestational age anatomy appears within normal limits. Physical Exam BP 117/79 Pulse 64 Temp 36.5 ??C (97.7 ??F) (Temporal) Ht 170.2 cm (5' 7) Wt 87.8 kg (193 lb 9.6 oz) SpO2 100% BMI 30.32 kg/m?? General: alert, well appearing, in no apparent distress, oriented to person, place and time HEENT: normocephalic, atraumatic Abdomen: Soft, non-tender, gravid Neurologic:alert, oriented, normal speech, no focal findings or movement disorder noted Psychiatric: Affect is Appropriate. Assessment and Recommendations: 39 y.o. year old female at 20w0d weeks gestation, referred for survey due to advance maternal age. Low risk NIPT and normal appearing survey. The patient declined further testing. Due to history of Grave's disease, now with hypothyroidism due to radioactive iodine treatment of the thyroid at age 16, I recommend f/u ultrasound in the third trimester to evaluate growth. Itis recommended that Thyroid Stimulating Immunoglobulin be checked in the third trimester. If this are more that five times above normal, there is a risk for thyrotoxicosis and the fetus should be followed for tachycardia and IUGR. I appreciate the opportunity to be involved in this patients care, and am available if further questions should arise. E JADIEL GONZALES MD 08/25/2019 Cc: Tory Lewis, [address] [place] [address] , with copy of ultrasound report documented in this encounter Plan of Treatment Not on file documented as of this encounter Visit Diagnoses Diagnosis Antepartum multigravida of advanced maternal age Hypothyroidism during , antepartum documented in this encounter Care Teams Machine Baster Relationship Specialty Start Date End Date Mela Barron, PLASTIC FINISHER PCP - General Family Medicine 07/09/19 documented as of this encounter
--- OUTSIDE RECORDS SUMMARY | 2023-10-14 23:24 | XMS_ITS | Encounter Summary ---
Author Organization [facility] Address [address] [place] [address] Care Team Providers Care Dust Brush Assembler Name Role Phone Unknown, Provider Primary Care Provider [phone] Encounter Details Date Type Department Care Team (Late st Contact Info) Description 07/09/2019 Lab Requisition [facility] Pathology & Laboratory Medicine - [address] [address] Unknown, Provider, Social History Tobacco Use Types Packs/Day Years Used Date Smoking Tobacco: Never Assessed Sex and Gender Information Value Date Recorded Sex Assigned at Not on file Gender Identity Not on file Sexual Orientation Not on file documented as of this encounter Plan of Treatment Not on file documented as of this encounter Procedures Procedure Name Priority Date/Time Associated Diagnosis Comments CHLAMYDIA/N. GONORRHOEAE AMPLIFIED NUCLEIC ACID Routine 07/08/2019 10:30 EDT documented in this encounter Results * CHLAMYDIA/N. GONORRHOEAE AMPLIFIED RNA (07/08/2019 10:30 EDT) Neisseria gonorrhoeae Result Negative Negative 07/12/2019 15:36 EDT [facility] Chlamydia trachomatis Result Negative Negative 07/12/2019 15:36 EDT [facility] Swab ENTIRE WALL OF CERVIX / Unknown Swab / Unknown 07/08/2019 10:30 EDT 07/09/2019 15:32 EDT Provider Unknown MICROBIOLOGY - GENER AL ORDERABLES [facility] [address] [place] [address] documented in this encounter Visit Diagnoses Not on filedocumented in this encounter Care Teams Dust Brush Assembler Relationship Specialty Start Date End Date Unknown, Provider, PCP - General 06/24/13 documented as of this encounter
--- OUTSIDE RECORDS SUMMARY | 2023-10-14 23:24 | XMS_ITS | Encounter Summary ---
Author Organization [facility] Address [address] [place] [address] Care Team Providers Care Line Server Name Role Phone Unknown, Provider Primary Care Provider Encounter Details Date Type Department Care Team (Late st Contact Info) Description 07/08/2017 Results Only [facility] [phone] Fantasma Maria MD [address] [place] [address] [address] [place], [place] [id number] Social History Tobacco Use Types Packs/Day Years Used Date Smoking Tobacco: Never Assessed Sex and Gender Information Value Date Recorded Sex Assigned at Not on file Gender Identity Not on file Sexual Orientation Not on file documented as of this encounter Plan of Treatment Not on file documented as of this encounter Procedures Procedure Name Priority Date/Time Associated Diagnosis Comments PAP TEST- RESULT ONLY Routine 07/08/2017 0:00 EDT documented in this encounter Results * PAP TEST- RESULT ONLY (07/08/2017 0:00 EDT) Pathology Report: CYTOPATHOLOGY REPORT Reports generated via electronic interface contain original data; however they are lacking the format of the original report. Caution should be taken when reading/interpreti ng unformatted reports. Name: ? LOREN DELGADILLO ? Accession #: ? [id number] ? : ? 1980 (Age: 37) ??F ?Collect Date: ? 07/08/2017 ? Location: ? [facility] ? Receive Date: ? 07/09/2017 ? Provider: FANTASMA MARIA MD Copy to: SHERRY RAMIREZ MALT HOUSE LOADER ? Final Report SPECIMEN ADEQUACY ? Satisfactory for Evaluation - transformation zone component present GENERAL CATEGORIZATION ? Negative for Intraepithelial Lesion or Malignancy ?? Hormonal/Contracep tive status: Intrauterine device Specimen/Source: ??Pap Test, Cervix/Endocervix, ThinPrep Imaging System with manual evaluation Document reviewed and electronically signed by: ? DENIA Zamudio(ASCP) ? Report ??Date: 07/17/2017 12:29 HPV with Pap Test ? Date Ordered: ? 07/17/2017 ? Status: ?? Signed Out ?Date Complete: ? 07/18/2017 ? By: ??System Interface ? Date Reported: ? 07/18/2017 ? Interpretation RESULT: Negative for HPV. No E6 or E7 mRNA is detected from HPV types 16,18,31,33,35, 39,45,51,52,56,58, 59,66, and 68 by carport erector mediated amplification. Comments Document reviewed and electronically signed by: ? System Interface ? Report date: 07/18/2017 By the signature above, the attending physician certifies that he/she has personally conducted a gross and/or microscopic examination of the described specimens and rendered or confirmed the above diagnosis. End of Report [facility] 07/08/2017 07/09/2017 Fantasma Maria MD PATHOLOGY ORDERABLES [facility] [address] [place] [address] documented in this encounter Visit Diagnoses Not on filedocumented in this encounter Care Teams Line Server Relationship Specialty Start Date End Date Unknown, Provider, PCP - General 06/24/13 documented as of this encounter
--- OUTSIDE RECORDS SUMMARY | 2023-10-14 23:24 | XMS_ITS | Encounter Summary ---
Author Organization [facility] Address [address] [place] [address] Care Team Providers Care Physician Recruiter Name Role Phone Unknown, Provider Primary Care Provider Encounter Details Date Type Department Care Team (Late st Contact Info) Description 06/23/2013 Results Only [facility] [phone] Vanessa Mckeon, [address] [phone] Social History Tobacco Use Types Packs/Day Years [...] Diagnosis Comments PAP TEST- RESULT ONLY Routine 06/23/2013 0:00 EDT documented in this encounter Results * PAP TEST- RESULT ONLY (06/23/2013 0:00 EDT) Pathology Report: CYTOPATHOLOGY REPORT Reports generated via electronic interface contain original data; however they are lacking the format of the original report. Caution should be taken when reading/interpreti ng unformatted reports. Name: ? LOREN DELGADILLO ? Accession #: ? [id number] ? : ? 1980 (Age: 33) ??F ?Collect Date: ? 06/23/2013 ? Location: ? [facility] ? Receive Date: ? 06/24/2013 ? Provider: VANESSA MCKEON CN Copy to: SAMANTHA HENDRICKS MD ? Final Report SPECIMEN ADEQUACY ? Satisfactory for Evaluation - transformation zone component present GENERAL CATEGORIZATION ? Negative for Intraepithelial Lesion or Malignancy INTERPRETATION ? Shift in faith present suggestive of bacterial vaginosis. Last Menstrual Period: 05/02/13 Menstrual/Pregnanc y Status: ?? Other: Additional clinical information: all paps WNL Specimen/Source: ??Pap Test, Cervix/Endocervix, ThinPrep Imaging System with manual evaluation Document reviewed and electronically signed by: ? Juan J Small, CT(ASCP) ? Report ??Date: 06/28/2013 15:53 HPV with Pap Test ? Date Ordered: ? 06/28/2013 ? Status: ?? Signed Out ?Date Complete: ? 06/30/2013 ? By: ??System Interface ? Date Reported: ? 06/30/2013 ? Interpretation RESULT: Negative for HPV. No E6 or E7 mRNA is detected from HPV types 16,18,31,33,35, 39,45,51,52,56,58, 59,66, and 68 by watershed coordinator mediated amplification. Comments Document reviewed and electronically signed by: ? System Interface ? Report date: 06/30/2013 By the signature above, the attending physician certifies that he/she has personally conducted a gross and/or microscopic examination of the described specimens and rendered or confirmed the above diagnosis. End of Report [facility] 06/23/2013 06/24/2013 Vanessa Mckeon CNM PATHOLOGY [facility] [address] [place] [address] documented in this encounter Visit Diagnoses Not on filedocumented in this encounter Care Teams Physician Recruiter Relationship Specialty Start Date End Date Unknown, Provider, PCP - General 06/24/13 documented as of this encounter
--- OUTSIDE RECORDS SUMMARY | 2023-10-14 23:24 | XMS_ITS | Referral Summary ---
Author Organization [facility] Address [address] [place] [address] Care Team Providers Care Corporate Safety Director Name Role Phone Unknown, Provider Primary Care Provider Social History Tobacco Use Types Packs/Day Years Used Date Smoking Tobacco: Never Assessed Sex and Gender Information Value Date Recorded Sex Assigned at Not on file Gender Identity Not on file Sexual Orientation Not on file Plan of Treatment Not on file Procedures Procedure Name Priority Date/Time Associated Diagnosis Comments HEPATITIS C AB W REFLEX TO HCV RNA BY PCR Routine 07/08/2019 11:00 EDT from Last 3 Months or Most Recently Relevant to Health Maintenance Results * HEPATITIS C AB W REFLEX TO HCV RNA BY PCR (07/08/2019 11:00 EDT) Hep C Antibody Negative Negative 07/09/2019 12:25 EDT [facility] Blood VENOUS BLOOD / Unknown 07/08/2019 11:00 EDT 07/08/2019 21:02 EDT Provider Unknown CHEMISTRY & BLOOD GA S ORDERABLES [facility] [address] [place] [address] from Last 3 Months or Most Recently Relevant to Health Maintenance Care Teams Corporate Safety Director Relationship Specialty Start Date End Date Unknown, Provider, PCP - General 06/24/13
--- OUTSIDE RECORDS SUMMARY | 2023-10-14 23:24 | XMS_ITS | Encounter Summary ---
[place] [address] Care Team Providers Care Drapery Hand Name Role Phone None Primary Care Provider Unavailabl e Reason for Referral * Diagnostic Test (Routine) - Closed Specialty Diagnoses / Procedures Referred By Contac t Referred To Contact Radiology Diagnoses Chronic midline low back pain without sciatica Procedures MRI Lumbar Spine wo Contrast (Generic) Pino Morgan MD [facility] [place] [address] [place] [address] Referral ID Status Reason Start Date Expiration Date V isits Requested Visits Authorized [id number] Closed Specialty Service Requested 02/17/2018 05/18/2018 1 1 Reason for Visit * Reason Comments Pain Management Encounter Details Date Type Department Care Team (Late st Contact Info) Description 02/16/2018 3:30 PM EST Office [place] [address] Pino Morgan MD [facility] [place] [address] Chronic midline low back pain without sciatica Social History Tobacco Use Types Packs/Day Years Used Date Smoking Tobacco: Never Smokeless Tobacco: Never Sex and Gender Information Value Date Recorded Sex Assigned at Not on file Gender Identity Not on file Sexual Orientation Not on file documented as of this encounter Last Filed Vital Signs Vital Sign Reading Time Taken Comments Blood Pressure 140/98 02/16/2018 3:17 PM EST Pulse 80 02/16/2018 3:17 PM EST Temperature - - Respiratory Rate - - Oxygen Saturation 99% 02/16/2018 3:17 PM EST Inhaled Oxygen Concentration - - Weight 95.7 kg (211 lb) 02/16/2018 3:05 PM EST Height 170.2 cm (5' 7) 02/16/2018 3:05 PM EST Body Mass Index 33.05 02/16/2018 3:05 PM EST documented in this encounter Progress Notes * Pino Morgan MD - 02/16/2018 3:30 PM EST CC: Low back pain HISTORY: Patient has a long history of having low back pain. It does not radiate to her lower extremities. Is worse with sitting and bending forward. She was seen at [facility] and felt that she might be a candidate for the basivertebral nerve ablation. MEDICATIONS [facility] Prescription Monitoring Program was checked and no concerns were identified. Medications 02/16/18 1513 Medication Sig Taking? hydroCHLOROthiazide (HYDRODIURIL) 50 mg Tablet Yes levothyroxine (SYNTHROID) 200 mcg Tablet Yes PREPLUS 27 mg iron- 1 mg Tablet take 1 tablet by mouth once daily ADVERSE DRUG REACTIONS Allergies as of 02/16/2018 ??? (No Known Allergies) MEDICAL HISTORY No past medical history on file. SURGICAL HISTORY No past surgical history on file. FAMILY HISTORY No family history on file. No flowsheet data found. PHYSICAL EXAMINATION Most Recent Vitals: 02/16/18 1517 BP: (!) 140/98 Pulse: 80 SpO2: 99% Body mass index is 33.05 kg/m??. BP (!) 140/98 Pulse 80 Ht 170.2 cm (5' 7) Wt 95.7 kg (211 lb) No flowsheet data found. Objective: Gen: Patient makes good eye contact communicates easily Gait: Nonantalgic Lower Extremities: no atrophy Back: Pain on flexion at the waist Sensory exam: Intact and symmetric in the lower extremities Sensory: Sensation (light touch) (0=absent, 1=impaired, 2=normal) Segment Location Right Left L1 upper inner thigh 2 2 L2 mid-ant thigh 2 2 L3 med femoral condyle 2 2 L4 medial mal 2 2 L5 dorsum foot, 3rd MT 2 2 S1 lat heal 2 2 S2 Popliteal fossa 2 2 Segment Muscle Action Right Left L2 Iliopsoas Hip flexion 5 5 L3 Quadriceps Knee extension 5 5 L4 Tibialis anterior Dorsiflexion 5 5 L5 Extensor hallucis Great toe extension 5 5 S1 Gastrocnemius Plantar flexion 5 5 Reflexes: Reflexes: Scale 0-5 Right Left Patellar L4 2 2 Ankle Jerk S1 2 2 Babinski - - Provocative Manuevers: Straight Leg Raise- - Contralateral Straight Leg Raise- - Imaging: No imaging to review Impression: Axial back pain without any radicular symptoms appears to be discogenic in nature Recommendations: #1 Procedures: Consider candidate for basivertebral ablation # Imaging: MRI lumbar spine ordered I spent 20 of 30 minutes in [id number] discussion regarding plan of care with the patient documented in this encounter Plan of Treatment Not on file documented as of this encounter Results * MRI Lumbar Spine wo Contrast (Generic) (02/19/2018 10:48 AM EST) Anatomical Region Laterality Modality L-spine Magnetic Resonan ce Impressions 02/19/2018 3:04 PM EST Canal and neural foraminal narrowing are no worse than mild in nature. Moderate lower lumbar facet arthropathy and moderate disc degenerative change at L5-S1. Comment: The following findings are so common in people without low back pain that while we report their presence, they must be interpreted with caution and in context of the clinical situation (Reference- Yawvik et al, Spine 2001). Findings: (Prevalence in patients without low back pain), disc degeneration (decreased T2 signal, height loss, bulge) (91%), disc T2-signal loss (83%), disc height loss (56%), disc bulge (64%), disc protrusion (32%), annular fissure (38%). Narrative 02/19/2018 3:04 PM EST EXAMINATION: MRI LUMBAR SPINE WO CONTRAST (GENERIC) CLINICAL HISTORY: LBP TECHNIQUE: MRI of the lumbar spine was performed without contrast, routine radiculopathy protocol. COMPARISON: None FINDINGS: Alignment is normal. Disc degenerative changes most prominent at L5-S1 with moderate disc space narrowing and endplate fatty marrow conversion. Mild disc degenerative changes at L3-L4 and L4-L5. Vertebral body heights are well-maintained. Normal appearing conus terminates at T12-L1. No aggressive marrow lesions. Visualized retroperitoneal structures are unremarkable. Findings at individual levels: T12-L1: ??Normal. L1-L2: ??No significant spinal canal or neural foraminal stenosis. L2-L3: ??No significant spinal canal or neural foraminal stenosis. L3-L4: ??Small central disc protrusion containing a tiny annular fissure very mildly indents the thecal sac. Underlying disc bulge and facet arthropathy contribute to mild bilateral neural foraminal narrowing. L4-L5: ??Small central disc extrusion with an annular fissure very mildly indents the thecal sac. Mild foraminal narrowing because of facet arthropathy. L5-S1: ??Disc bulge and facet arthropathy without significant canal or neural foraminal narrowing. Procedure Note Nikunj Swift MD - 02/19/2018 EXAMINATION: MRI LUMBAR SPINE WO CONTRAST (GENERIC) CLINICAL HISTORY: LBP TECHNIQUE: MRI of the lumbar spine was performed without contrast,routine radiculopathy protocol. COMPARISON: None FINDINGS: Alignment is normal. Disc degenerative changes most prominent atL5-S1 with moderate disc space narrowing and endplate fatty marrow conversion.Mild disc degenerative changes at L3-L4 and L4-L5. Vertebral body heights are well-maintained. Normal appearing conus terminates at T12-L1. Noaggressive marrow lesions. Visualized retroperitoneal structures are unremarkable. Findings at individual levels: T12-L1: Normal. L1-L2: No significant spinal canal or neural foraminal stenosis. L2-L3: No significant spinal canal or neural foraminal stenosis. L3-L4: Small central disc protrusion containing a tiny annular fissurevery mildly indents the thecal sac. Underlying disc bulge and facetarthropathy contribute to mild bilateral neural foraminal narrowing. L4-L5: Small central disc extrusion with an annular fissure very mildlyindents the thecal sac. Mild foraminal narrowing because of facet arthropathy. L5-S1: Disc bulge and facet arthropathy without significant canal orneural foraminal narrowing. IMPRESSION Canal and neural foraminal narrowing are no worse than mild in nature. Moderate lower lumbar facet arthropathy and moderate disc degenerativechange at L5-S1. Comment: The following findings are so common in people without low backpain that while we report their presence, they must be interpreted with cautionand in context of the clinical situation (Reference- Evan et al, [id number]). Findings: (Prevalence in patients without low back pain), discdegeneration (decreased T2 signal, height loss, bulge) (91%), disc T2-signal loss(83%), disc height loss (56%), disc bulge (64%), disc protrusion (32%), annularfissure (38%). Pino Morgan MD IMG MRI ORDERABLES documented in this encounter Visit Diagnoses Diagnosis Chronic midline low back pain without sciatica Chronic midline low back pain without sciatica documented in this encounter Care Teams Drapery Hand Relationship Specialty Start Date End Date None None PCP - General 02/16/18 07/08/19 documented as of this encounter
--- OUTSIDE RECORDS SUMMARY | 2023-10-14 23:24 | XMS_ITS | Encounter Summary ---
Author Organization [facility] [place] [address] Care Team Providers Care Environmental Health Nurse Name Role Phone None Primary Care Provider Unavailabl e Encounter Details Date Type Department Care Team (Late st Contact Info) Description 03/03/2018 Telephone [place] [address] Pino Morgan MD [facility] [address] Social History Tobacco Use Types Packs/Day Years Used Date Smoking Tobacco: Never Smokeless Tobacco: Never Sex and Gender Information Value Date Recorded Sex Assigned at Not on file Gender Identity Not on file Sexual Orientation Not on file documented as of this encounter Miscellaneous Notes * Telephone Encounter - Pino Morgan MD - 03/03/2018 10:11 AM EST I spoke to the patient regarding her MRI as well as my understanding that she was accepted to be inthe treatment protocol for the basivertebral nerve ablation. I have asked her to call Addie to figure out scheduling. documented in this encounter Plan of Treatment Not on file documented as of this encounter Visit Diagnoses Not on filedocumented in this encounter Care Teams Environmental Health Nurse Relationship Specialty Start Date End Date None None PCP - General 02/16/18 07/08/19 documented as of this encounter
--- OUTSIDE RECORDS SUMMARY | 2023-10-14 23:24 | XMS_ITS | Encounter Summary ---
Author Organization [facility] Address [facility] [place] [address] Care Team Providers Care Recovery Coordinator Name Role Phone Mela Barron APRN Primary Care Provider [phone] Encounter Details Date Type Department Care Team (Latest Contact Info) Description 08/25/2019 9:16 AM EDT - 08/25/2019 11:59 PM EDT Hospital Encounter [place] [phone] Atif Lewis, [address] [place] [address] Transient hypertension of , antepartum; Elderly multigravida with antepartum condition or complication Discharge Disposition: Home Social History Tobacco Use Types Packs/Day Years Used Date Smoking Tobacco: Never Smokeless Tobacco: Never Alcohol Use Standard Drinks/Week Comments Not Currently 0 (1 standard drink = 0.6 oz pur e alcohol) Comments Yes Sex and Gender Information Value Date Recorded Sex Assigned at Not on file Gender Identity Not on file Sexual Orientation Not on file documented as of this encounter Medications at Time of Discharge Medication Sig Dispensed Refills Start Date End Date labetaloL (Normodyne) 100 mg Tablet Take 100 mg by mouth 2 times daily. cholecalciferol, Vitamin D3, (cholecalciferol, Vitamin D3,) 50 mcg (2,000 unit) Capsule Take by mouth. aspirin EC 81 mg Tablet, Delayed Release (E.C.) Take 81 mg by mouth daily. PREPLUS 27 mg iron- 1 mg Tablet take 1 tablet by mouth once daily 0 11/19/2017 levothyroxine (SYNTHROID) 200 mcg Tablet 0 11/19/2017 hydroCHLOROthiazide (HYDRODIURIL) 50 mg Tablet 0 11/22/2017 documented as of this encounter Plan of Treatment Not on file documented as of this encounter Procedures Procedure Name Priority Date/Time Associated Diagnosis Comments US OB DETAILED MORPHOLOGY Routine 08/25/2019 10:33 AM EDT Transient hypertension of , antepartum Elderly multigravida with antepartum condition or complication documented in this encounter Results * US OB Detailed Morphology (08/25/2019 10:33 AM EDT) Anatomical Region Laterality Modality Pelvis, Abdomen Ultrasound 08/25/2019 9:33 AM EDT Impressions 08/25/2019 10:39 AM EDT 2nd Trimester - Detailed Morphology - Summary Single intrauterine with a gestational age of 20w 0d based on LMP ??(04/07/19) Composite age based on the current ultrasound alone is 20w 2d. Current growth parameters are consistent with prior dating indicating normal growth. Amniotic fluid volume is Normal Detailed anatomic evaluation was performed and no structural abnormalities are noted. ? Teresa Gonzales, Staff Physician Electronically Signed Final Report ?? 08/25/2019 10:39 am Narrative 08/25/2019 10:39 AM EDT OBSTETRICS REPORT ? (Signed Final 08/25/2019 10:39 am) PATIENT INFO: ID #: ? [id number] ?: ??[birth year] (39 yrs)(F) Name: ? LOREN Wong ? Visit Date: 08/25/2019 09:33 am ? [facility]ONA PERFORMED BY: Performed By: ? Bessie Wilder RDMS Attending: ?Teresa Gonzales MD Referred By: ?ATIFBLAKE LEWIS Location: ? [facility] SERVICE(S) PROVIDED: ??[facility] - Detailed Morphology - [id number] ? [id number] INDICATIONS: ??20 weeks gestation of ?Z3A.20 ??AMA, chronic HTN VITAL SIGNS: Weight (lb): 193.0 Height: ?5'7 ?BMI: ?30.22 EVALUATION: Num Of Fetuses: ?1 Heart Rate(bpm): ?? 146 Cardiac Activity: ?Observed, normal rhythm Presentation: ?Variable Placenta: ?Posterior P. Cord Insertion: ? Within Normal Limits Amniotic Fluid VENKATESH FV: ?Normal --------- BIOMETRY: --------- BPD: ?46.3 ??mm ? G.Age: ?? 20w 0d OFD: ?63.2 ??mm HC: ?175.8 ??mm ? G.Age: ?? 20w 1d AC: ?152.3 ??mm ? G.Age: ?? 20w 3d FL: ? 32.9 ??mm ? G.Age: ?? 20w 2d HUM: ?32.4 ??mm ? G.Age: ?? 20w 6d CER: ?20.7 ??mm ? G.Age: ?? 19w 5d NFT: ? 4.8 ??mm NB: ?6.4 ??mm LV: ?6.2 ??mm CM: ?4.8 ??mm CI: ?73.3 ??% ? 70 - 86 FL/HC: ? 18.7 ??% ? 16.8 - 19.8 HC/AC: ? 1.15 ?1.09 - 1.39 FL/BPD: ?71.1 ??% FL/AC: ? 21.6 ??% ? 20 - 24 Est. FW: ? 347 ?? gm ?? 0 lb 12 oz OB HISTORY: : ?4 ? Term: ?? 3 Living: ? 3 GESTATIONAL AGE: LMP: ? 20w 0d ?Date: ??04/07/19 ? SEYMOUR: ?? 01/12/20 U/S Today: ? 20w 2d ?SEYMOUR: ?? 01/10/20 Best: ?20w 0d ?? Det. By: ??LMP ??(04/07/19) ?SEYMOUR: ?? 01/12/20 TARGETED ANATOMY: Central Nervous System Calvarium/Cranial V.: ??Within Normal Limits Intracranial Cherry: ? Within Normal Limits Cavum: ? Within Normal Limits Parenchyma: ?Within Normal Limits Lateral Ventricles: ?Within Normal Limits Choroid Plexus: ?Within Normal Limits Cereb./Vermis: ? Within Normal Limits Cisterna Magna: ?Within Normal Limits Midline Falx: ?Within Normal Limits Spine Cervical: ?Visualized Thoracic: ?Visualized Lumbar: ?Visualized Sacral: ?Visualized Shape/Curvature: ? Visualized Head/Neck Face: ?Within Normal Limits Lips: ?Within Normal Limits Neck: ?Within Normal Limits Nuchal Fold: ? Within Normal Limits Nasal Bone: ?Present Profile: ? Visualized Orbits/Eyes: ? Visualized Mandible: ?Visualized Maxilla: ? Visualized Thorax Thoracic Contour: ?Within Normal Limits Lungs: ? Visualized 4 Chamber View: ?Within Normal Limits Cardiac Motion: ?Normal Rhythm Rt Outflow Tract: ?Visualized Lt Outflow Tract: ?Visualized Aortic Arch: ? Visualized Ductal Arch: ? Visualized SVC: ? Visualized Cardiac [place]: ?Visualized Diaphragm: ? Visualized 3 Vessel View: ? Visualized IVC: ? Visualized Abdomen Ventral Wall: ?Visualized Cord Insertion: ?Visualized Situs: ? Normal Stomach: ? Visualized Liver: ? Visualized Lt Kidney: ? Visualized Rt Kidney: ? Visualized Bladder: ? Visualized Bowel: ? Visualized Extremities Lt Humerus: ?Within Nomal Limits Rt Humerus: ?Within Normal Limits Lt Forearm: ?Within Normal Limits Rt Forearm: ?Within Normal Limits Lt Hand: ? Within Normal Limits Rt Hand: ? Within Normal Limits Lt Femur: ?Within Normal Limits Rt Femur: ?Within Normal Limits Lt Lower Leg: ?Within Normal Limits Rt Lower Leg: ?Within Normal Limits Lt Foot: ? Visualized Rt Foot: ? Visualized Other Umbilical Cord: ?3 vessel cord Genitalia: ? Male CERVIX UTERUS ADNEXA: Left Ovary Not visualized Right Ovary Not visualized Procedure Note Cullen Gonzales MD - 08/25/2019 OBSTETRICS REPORT (Signed Final 08/25/2019 10:39 am) PATIENT INFO: ID #: [id number] : [birth year] (39 yrs)(F) Name: LOREN Wong Visit Date: 08/25/2019 09:33 am SCHMA[facility] PERFORMED BY: Performed By: Bessie Wilder RDMS Attending: Teresa Gonzales MD Referred By: ATIF LEWIS Location: [facility] SERVICE(S) PROVIDED: [facility] - Detailed Morphology - [id number] INDICATIONS: 20 weeks gestation of Z3A.20 AMA, chronic HTN VITAL SIGNS: Weight (lb): 193.0 Height: 5'7 BMI: 30.22 EVALUATION: Num Of Fetuses: 1 Heart Rate(bpm): 146 Cardiac Activity: Observed, normal rhythm Presentation: Variable Placenta: Posterior P. Cord Insertion: Within Normal Limits Amniotic Fluid VENKATESH FV: Normal --------- BIOMETRY: --------- BPD: 46.3 mm G.Age: 20w 0d OFD: 63.2 mm HC: 175.8 mm G.Age: 20w 1d AC: 152.3 mm G.Age: 20w 3d FL: 32.9 mm G.Age: 20w 2d HUM: 32.4 mm G.Age: 20w 6d CER: 20.7 mm G.Age: 19w 5d NFT: 4.8 mm NB: 6.4 mm LV: 6.2 mm CM: 4.8 mm CI: 73.3 % 70 - 86 FL/HC: 18.7 % 16.8 - 19.8 HC/AC: 1.15 1.09 - 1.39 FL/BPD: 71.1 % FL/AC: 21.6 % 20 - 24 Est. FW: 347 gm 0 lb 12 oz OB HISTORY: : 4 Term: 3 [place] GESTATIONAL AGE: LMP: 20w 0d Date: 04/07/19 SEYMOUR: 01/12/20 U/S Today: 20w 2d SEYMOUR: 01/10/20 Best: 20w 0d Det. By: LMP (04/07/19) SEYMOUR: 01/12/20 TARGETED ANATOMY: Central Nervous System Calvarium/Cranial V.: Within Normal Limits Intracranial Cherry: Within Normal Limits Cavum: Within Normal Limits Parenchyma: Within Normal Limits Lateral Ventricles: Within Normal Limits Choroid Plexus: Within Normal Limits Cereb./Vermis: Within Normal Limits Cisterna Magna: Within Normal Limits Midline Falx: Within Normal Limits Spine Cervical: Visualized Thoracic: Visualized Lumbar: Visualized Sacral: Visualized Shape/Curvature: Visualized Head/Neck Face: Within Normal Limits Lips: Within Normal Limits Neck: Within Normal Limits Nuchal Fold: Within Normal Limits Nasal Bone: Present Profile: Visualized Orbits/Eyes: Visualized Mandible: Visualized Maxilla: Visualized Thorax Thoracic Contour: Within Normal Limits Lungs: Visualized 4 Chamber View: Within Normal Limits Cardiac Motion: Normal Rhythm Rt Outflow Tract: Visualized Lt Outflow Tract: Visualized Aortic Arch: Visualized Ductal Arch: Visualized SVC: Visualized Cardiac [place]: Visualized Diaphragm: Visualized 3 Vessel View: Visualized IVC: Visualized Abdomen Ventral Wall: Visualized Cord Insertion: Visualized Situs: Normal Stomach: Visualized Liver: Visualized Lt Kidney: Visualized Rt Kidney: Visualized Bladder: Visualized Bowel: Visualized Extremities Lt Humerus: Within Nomal Limits Rt Humerus: Within Normal Limits Lt Forearm: Within Normal Limits Rt Forearm: Within Normal Limits Lt Hand: Within Normal Limits Rt Hand: Within Normal Limits Lt Femur: Within Normal Limits Rt Femur: Within Normal Limits Lt Lower Leg: Within Normal Limits Rt Lower Leg: Within Normal Limits Lt Foot: Visualized Rt Foot: Visualized Other Umbilical Cord: 3 vessel cord Genitalia: Male CERVIX UTERUS ADNEXA: Left Ovary Not visualized Right Ovary Not visualized IMPRESSION 2nd Trimester - Detailed Morphology - Summary Single intrauterine with a gestational age of 20w 0d based on LMP (04/07/19) Composite age based on the current ultrasound alone is 20w 2d. Current growth parameters are consistent with prior dating indicating normal growth. Amniotic fluid volume is Normal Detailed anatomic evaluation was performed and no structural abnormalities are noted. Teresa Gonzales, Staff Physician Electronically Signed Final Report 08/25/2019 10:39 am Atif Lewis CNM Jessa OB ORDERABLES documented in this encounter Visit Diagnoses Diagnosis Transient hypertension of , antepartum Elderly multigravida with antepartum condition or complication documented in this encounter Care Teams Recovery Coordinator Relationship Specialty Start Date End Date Mela Barron, GEOLOGICAL SAMPLE TESTER PCP - General Family Medicine 07/09/19 documented as of this encounter
--- OUTSIDE RECORDS SUMMARY | 2023-10-14 23:24 | XMS_ITS | Clinical Summary ---
Author Organization [facility] Address [place] [address] Care Team Providers Care Clinical Secretary Name Role Phone Mela Barron YADIEL Primary Care Provider [phone] Allergies No known active allergies Medications Medication Sig Dispensed Refills Start Date End Date Status hydroCHLOROthiazide (HYDRODIURIL) 50 mg Tablet 0 11/22/2017 Active PREPLUS 27 mg iron- 1 mg Tablet take 1 tablet by mouth once daily 0 11/19/2017 Active levothyroxine (SYNTHROID) 200 mcg Tablet 0 11/19/2017 Active labetaloL (Normodyne) 100 mg Tablet Take 100 mg by mouth 2 times daily. Active cholecalciferol, Vitamin D3, (cholecalciferol, Vitamin D3,) 50 mcg (2,000 unit) Capsule Take by mouth. Active aspirin EC 81 mg Tablet, Delayed Release (E.C.) Take 81 mg by mouth daily. Active Active Problems Problem Noted Date Diagnosed Date Antepartum multigravida of advanced maternal age 0608/25/2019 Hypothyroidism during , antepartum 05/2019 Hypertension affecting , antepartum 05/2019 Social History Tobacco Use Types Packs/Day Years Used Date Smoking Tobacco: Never Smokeless Tobacco: Never Alcohol Use Standard Drinks/Week Comments Not Currently 0 (1 standard drink = 0.6 oz pur e alcohol) Sex and Gender Information Value Date Recorded Sex Assigned at Not on file Gender Identity Not on file Sexual Orientation Not on file Last Filed Vital Signs Vital Sign Reading [...] Mass Index 30.32 08/25/2019 9:30 AM EDT Plan of Treatment Health Maintenance Due Date Last Done Comments HIV screen 1998 Hepatitis C Screening 1998 Lipid Screening 1998 Hepatitis B vaccine (0-59 yrs) (1) 06/13/1999 Tdap adult 06/13/1999 Tetanus vaccine 06/13/1999 HPV test 2010 PAP Smear 2010 Breast Cancer Share Decision Needed 2020 Breast Cancer screening 2020 Covid-19 Vaccine ( - 2022- season) 2022 Influenza (Flu) vaccine (1 o f 1 - Influenza standard series) 11/23/2023 Care Teams Clinical Secretary Relationship Specialty Start Date End Date Mela Barron APRN PCP - General Family Medicine 07/09/19
--- OUTSIDE RECORDS SUMMARY | 2023-10-14 23:24 | XMS_ITS | Encounter Summary ---
Author Organization [facility] Address [address] [place] [address] Care Team Providers Care Wharf Tender Head Name Role Phone Unknown, Provider Primary Care Provider [phone] Encounter Details Date Type Department Care Team (Late st Contact Info) Description 02/23/2021 Lab Requisition [facility] Pathology & Laboratory Medicine - [address] [address] Outr Resulting Lab, Provider Social History Tobacco Use Types Packs/Day Years Used Date Smoking Tobacco: Never Assessed Sex and Gender Information Value Date Recorded Sex Assigned at Not on file Gender Identity Not on file Sexual Orientation Not on file documented as of this encounter Plan of Treatment Not on file documented as of this encounter Procedures Procedure Name Priority Date/Time Associated Diagnosis Comments PTH INTACT Routine 02/22/2021 10:44 EST documented in this encounter Results * PTH INTACT (02/22/2021 10:44 EST) Intact PTH 65 19 - 88 pg/mL 02/26/2021 9:18 EST [facility] Blood VENOUS BLOOD / Unknown 02/22/2021 10:44 EST 02/23/2021 21:58 EST Provider Outr Resulting Lab CHEMISTRY & BLOOD GAS ORDERABLES [facility] [address] [place] [address] documented in this encounter Visit Diagnoses Not on filedocumented in this encounter Care Teams Wharf Tender Head Relationship Specialty Start Date End Date Unknown, ProviderMD PCP - General 06/24/13 documented as of this encounter
--- OUTSIDE RECORDS SUMMARY | 2023-10-14 23:24 | XMS_ITS | Encounter Summary ---
Author Organization [facility] Address [address] [place] [address] Care Team Providers Care Purse Seining Hand Name Role Phone Unknown, Provider Primary Care Provider [phone] Encounter Details Date Type Department Care Team (Late st Contact Info) Description 12/17/2019 Lab Requisition [facility] Pathology & Laboratory Medicine - [facility] [address] [place] [address] Outr Resulting Lab, Provider Social History Tobacco [...] Procedure Name Priority Date/Time Associated Diagnosis Comments DO NOT ORDER STANDALONE - BROAD COVID TEST Today 12/17/2019 9:26 EDT COVID-19 TESTING Routine 12/17/2019 9:26 EDT documented in this encounter Results * DO NOT ORDER STANDALONE - BROAD COVID TEST (12/17/2019 9:26 EDT) COVID-19 rt-PCR Result NEGATIVE Negative 12/18/2019 21:36 EDT [facility] Comment: 2019-novel Coronavirus (2019-nCoV) not detected by the qRT-PCR assay. Consider testing for other respiratory viruses or re-collecting for 2019-nCoV testing. Note: Optimum timing for peak viral levels during infections caused by 2019-nCoV have not been determined. Collection of multiple specimens from the same patient may be necessary to detect the virus. Limitations Positive results are indicative of active infection with SARS-CoV-2 but do not rule out bacterial infection or co-infection with other viruses. The agent detected may not be the definite cause of disease. In addition, detection of viral RNA may not indicate the presence of infectious virus or that SARS-CoV-2 is the causative agent for clinical symptoms. Negative results do not preclude SARS-CoV-2 infection and should not be used as the sole basis for patient management decisions. Negative results must be combined with clinical observations, patient history, and epidemiological information. False negative results may also occur if amplification inhibitors are present in the specimen or if inadequate numbers of organisms are present in the specimen. Optimum specimen types and timing for peak viral levels during infections caused by SARS-CoV-2 have not been fully determined. Collection of multiple specimens (types and time points) from the same patient may be necessary to detect the virus. The test was validated for use with upper respiratory specimens obtained via nasopharyngeal or oropharyngeal swabs in VTM, UTM, M4, M5, M6, saline, and MTM media. The performance of this test has not been established for other specimens. Specimens collected using other FDA recommended Specimen Collection Materials listed in the FDA COVID-19 [employer] communication (June 17, 2019) are processed with the caveat that they were not all validated for use with this test and the result must be interpreted in this context. Furthermore, a false negative results may occur if a specimen is improperly collected, transported or handled. If the virus mutates in the RT-PCR target region, SARS-CoV-2 may not be detected or may be detected less predictably. Inhibitors or other types of interference may produce a false negative result. An interference study evaluating the effect of common cold medications was not performed. This test is not FDA-cleared but its performance characteristics were established by our CLIA-certified, CAP-accredited, high complexity laboratory in accordance with CLIA regulations, [employer] (CAP) guidelines (Jun 10, 2019), and FDA guidance (May 22, 2019). This test is only for use under the Food and Drug Administration's Emergency Use Authorization. Swab ENTIRE NASOPHARYNX / Unknown 12/17/2019 9:26 EDT 12/17/2019 17:25 EDT Provider Outr Resulting Lab MICROBIOLOGY - GENERAL ORDERABLES [place], [place] * COVID-19 TESTING (12/17/2019 9:26 EDT) COVID-19 rt-PCR Result NEGATIVE Negative 12/18/2019 23:[address] [facility] Comment: 2019-novel Coronavirus (2019-nCoV) not detected by the qRT-PCR assay. Consider testing for other respiratory viruses or re-collecting for 2019-nCoV testing. Note: Optimum timing for peak viral levels during infections caused by 2019-nCoV have not been determined. Collection of multiple specimens from the same patient may be necessary to detect the virus. Limitations Positive results are indicative of active infection with SARS-CoV-2 but do not rule out bacterial infection or co-infection with other viruses. The agent detected may not be the definite cause of disease. In addition, detection of viral RNA may not indicate the presence of infectious virus or that SARS-CoV-2 is the causative agent for clinical symptoms. Negative results do not preclude SARS-CoV-2 infection and should not be used as the sole basis for patient management decisions. Negative results must be combined with clinical observations, patient history, and epidemiological information. False negative results may also occur if amplification inhibitors are present in the specimen or if inadequate numbers of organisms are present in the specimen. Optimum specimen types and timing for peak viral levels during infections caused by SARS-CoV-2 have not been fully determined. Collection of multiple specimens (types and time points) from the same patient may be necessary to detect the virus. The test was validated for use with upper respiratory specimens obtained via nasopharyngeal or oropharyngeal swabs in VTM, UTM, M4, M5, M6, saline, and MTM media. The performance of this test has not been established for other specimens. Specimens collected using other FDA recommended Specimen Collection Materials listed in the FDA COVID-19 [employer] communication (June 17, 2019) are processed with the caveat that they were not all validated for use with this test and the result must be interpreted in this context. Furthermore, a false negative results may occur if a specimen is improperly collected, transported or handled. If the virus mutates in the RT-PCR target region, SARS-CoV-2 may not be detected or may be detected less predictably. Inhibitors or other types of interference may produce a false negative result. An interference study evaluating the effect of common cold medications was not performed. This test is not FDA-cleared but its performance characteristics were established by our CLIA-certified, CAP-accredited, high complexity laboratory in accordance with CLIA regulations, [employer] [place] [employer] (CAP) guidelines (Jun 10, 2019), and FDA guidance (May 22, 2019). This test is only for use under the Food and Drug Administration's Emergency Use Authorization. Performing Lab [facility] 12/18/2019 23:43 EDT [facility] Swab 12/17/2019 9:26 EDT 12/17/2019 17:25 EDT Provider Outr Resulting Lab MICROBIOLOGY - GENERAL ORDERABLES [facility] [address] [place], [place] [id number] [place] [address] LABORATORY [place], [place] documented in this encounter Visit Diagnoses Not on filedocumented in this encounter Care Teams Purse Seining Hand Relationship Specialty Start Date End Date Unknown, Provider, PCP - General 06/24/13 documented as of this encounter
--- OUTSIDE RECORDS SUMMARY | 2023-10-14 23:24 | XMS_ITS | Encounter Summary ---
Author Organization [facility] Address [facility] [place] [address] Care Team Providers Care Tool And Die Maker Apprentice Name Role Phone None Primary Care Provider Unavailabl e Reason for Referral * Diagnostic Test (Routine) - Closed Specialty Diagnoses / Procedures Referred By Contac t Referred To Contact Radiology Diagnoses Chronic midline low back pain without sciatica Procedures MRI Lumbar Spine wo Contrast (Generic) Pino Morgan MD [facility] [place] [address] [place] [address] Referral ID Status Reason Start Date Expiration Date V isits Requested Visits Authorized [id number] Closed Specialty Service Requested 02/17/2018 05/18/2018 1 1 Reason for Visit * Diagnostic Test (Routine) - Closed Specialty Diagnoses / Procedures Referred By Contac t Referred To Contact Radiology Diagnoses Chronic midline low back pain without sciatica Procedures MRI Lumbar Spine wo Contrast (Generic) Pino Morgan MD [facility] [place] [address] [place] [address] Referral ID Status Reason Start Date Expiration Date V isits Requested Visits Authorized [id number] Closed Specialty Service Requested 02/17/2018 05/18/2018 1 1 Encounter Details Date Type Department Care Team (Latest Contact Info) Description 02/19/2018 9:35 AM EST - 02/19/2018 11:59 PM EST Hospital [place] [address] Pino Morgan MD [facility] [place] [address] Chronic midline low back pain without sciatica Discharge Disposition: Home Social History Tobacco Use Types Packs/Day Years Used Date Smoking Tobacco: Never Smokeless Tobacco: Never Sex and Gender Information Value Date Recorded Sex Assigned at Not on file Gender Identity Not on file Sexual Orientation Not on file documented as of this encounter Medications at Time of Discharge Medication Sig Dispensed Refills Start Date End Date PREPLUS 27 mg iron- 1 mg Tablet take 1 tablet by mouth once daily 0 11/19/2017 levothyroxine (SYNTHROID) 200 mcg Tablet 0 11/19/2017 hydroCHLOROthiazide (HYDRODIURIL) 50 mg Tablet 0 11/22/2017 documented as of this encounter Plan of Treatment Not on file documented as of this encounter Procedures Procedure Name Priority Date/Time Associated Diagnosis Comments MRI LUMBAR SPINE WITHOUT CONTRAST Routine 02/19/2018 10:48 AM EST Chronic midline low back pain without sciatica documented in this encounter Results * MRI Lumbar Spine [...] in context of the clinical situation (Reference- Lucyk et al, Spine 2001). Findings: (Prevalence in [...] in context of the clinical situation (Reference- Lucyk et al, [id number]). Findings: (Prevalence in patients without low back pain), discdegeneration (decreased T2 signal, height loss, bulge) (91%), disc T2-signal loss(83%), disc height loss (56%), disc bulge (64%), disc protrusion (32%), annularfissure (38%). Pino Morgan MD [facility] MRI ORDERABLES documented in this encounter Visit Diagnoses Diagnosis Chronic midline low back pain without sciatica documented in this encounter Care Teams Tool And Die Maker Apprentice Relationship Specialty Start Date End Date None None PCP - General 02/16/18 07/08/19 documented as of this encounter
--- OUTSIDE RECORDS SUMMARY | 2023-10-14 23:24 | XMS_ITS | Encounter Summary ---
Author Organization [facility] Address [address] [place] [address] Care Team Providers Care Telephone Recorder Name Role Phone Unknown, Provider Primary Care Provider Encounter Details Date Type Department Care Team (Late st Contact Info) Description 07/08/2019 Lab Requisition [facility] Pathology & Laboratory Medicine - [facility] [address] [place] [address] Unknown, Provider, Social History Tobacco Use Types Packs/Day Years Used Date Smoking Tobacco: Never Assessed Sex and Gender Information Value Date Recorded Sex Assigned at Not on file Gender Identity Not on file Sexual Orientation Not on file documented as of this encounter Plan of Treatment Not on file documented as of this encounter Procedures Procedure Name Priority Date/Time Associated Diagnosis Comments RUBELLA IGG ANTIBODY Routine 07/08/2019 11:46 EDT VARICELLA IGG ANTIBODY Routine 07/08/2019 11:46 EDT documented in this encounter Results * VARICELLA IGG ANTIBODY (07/08/2019 11:46 EDT) Varicella IgG Ab Positive See Note 07/09/2019 9:53 EDT [facility] Comment:Presence of detectab le Varicella Zoster virus IgG antibodies. Blood VENOUS BLOOD / Unknown 07/08/2019 11:46 EDT 07/08/2019 21:02 EDT Provider Unknown IMMUNOLOGY AND SEROL OGY ORDERABLES [facility] [address] [place] [address] * RUBELLA IGG ANTIBODY (07/08/2019 11:46 EDT) Rubella IgG Ab Positive See Note 07/09/2019 10:54 EDT [facility] Comment:Positive for IgG ant ibodies to Rubella virus. Blood VENOUS BLOOD / Unknown 07/08/2019 11:46 EDT 07/08/2019 21:02 EDT Provider Unknown CHEMISTRY & BLOOD GA S ORDERABLES [facility] [address] [place] [address] documented in this encounter Visit Diagnoses Not on filedocumented in this encounter Care Teams Telephone Recorder Relationship Specialty Start Date End Date Unknown, Provider, PCP - General 06/24/13 documented as of this encounter
--- OUTSIDE RECORDS SUMMARY | 2023-10-14 23:24 | XMS_ITS | Encounter Summary ---
[place] [address] Care Team Providers Care Snuff Drier Name Role Phone None Primary Care Provider Unavailabl e Encounter Details Date Type Department Care Team (Late st Contact Info) Description 03/13/2018 Telephone [place] [address] Irma Romero Social History Tobacco Use Types Packs/Day Years Used Date Smoking Tobacco: Never Smokeless Tobacco: Never Sex and Gender Information Value Date Recorded Sex Assigned at Not on file Gender Identity Not on file Sexual Orientation Not on file documented as of this encounter Miscellaneous Notes * Telephone Encounter - Irma Romero - 03/13/2018 1:31 PM EST Called pt to set up visit for randomization in Intracept study on 03/16. Call went straight to voicemail, voicemail box is full. documented in this encounter Plan of Treatment Not on file documented as of this encounter Visit Diagnoses Not on filedocumented in this encounter Care Teams Snuff Drier Relationship Specialty Start Date End Date None None PCP - General 02/16/18 07/08/19 documented as of this encounter
[2023-10-14 23:27] LABS: Abs Immature Grans 0.03 10^3/uL (0.0-0.06); Absolute Basophil Count 0.02 10^3/uL (0.0-0.2); Absolute Eosinophil Count 0.14 10^3/uL (0.0-0.7); Absolute Lymphocyte Count 3.13 10^3/uL (1.2-3.4); Absolute Neutrophil Count 4.15 10^3/uL (1.2-6.7); Basophils % 0.2 %; Eosinophils % 1.7 %; HCT 37.3 % (36.0-46.0); HGB 12.6 g/dL (11.2-15.7); Immature Grans % 0.4 %; Lymphocytes % 38.3 %; MCH 29.2 pg (27.0-33.0); MCHC 33.8 % (32.0-36.0); MCV 86 fL (80-95); MPV 10.2 fL (8.0-11.0); Monocytes % 8.6 %; Neutrophils % 50.8 %; Platelet Count 239 10^3/uL (130-400); RBC 4.32 10^6/uL (3.93-5.22); RDW 12.1 % (11.7-14.6); RDW-SD 38.4 fL; WBC 8.17 10^3/uL (4.4-10.8)
[2023-10-14] MEDS: Lidocaine 5% Patch 1 PATCH TP (23:30)
[2023-10-14] MEDS: Aspirin 81 MG CHEW 324 MG CH (23:30)
[2023-10-14] MEDS: Normal Saline 500 ML IV (23:30)
--- NOTE | 2023-10-14 23:36 | ED.GENADUL_ITS ---
Discharge Plan Disposition Patient Disposition: Home Condition: Good Discharge Details Clinical Impression: Left-sided chest wall pain Primary Care Provider: Mela Barron ED Provider: Matty Coe Home Meds and New Rx's Prescriptions: No Action melatonin 1 mg tablet 2 mg PO HS PRN Rx Instructions: Pure zzzQuil fluticasone propionate 50 mcg/actuation spray,suspension 2 spray intranasal DAILY Qty: 16 6RF Rx Instructions: administer into each nostril citalopram 40 mg tablet 40 mg PO DAILY Qty: 90 1RF trazodone 50 mg tablet See Rx Instructions PO QHS PRN (Reason: sleep) Qty: 60 2RF Rx Instructions: 1-2 tabs at HS PRN hydrochlorothiazide 25 mg tablet 25 mg PO DAILY AM Qty: 90 3RF lisinopril 20 mg tablet 20 mg PO DAILY Qty: 30 2RF Excedrin Migraine 1 EACH tablet 1 ea PO PRN levothyroxine 200 mcg tablet 200 mcg PO DAILY Qty: 90 3RF Discharge Instructions Instructions: Chest Pain, Adult ED Additional Instructions: At this time your results have returned notably normal and reassuring. Your blood work shows no signs of heart attack, blood clot, there is no evidence of heart strain or pancreatitis. I suspect that a component of your symptoms may have been from stress, muscle spasm, or mild reflux. Your blood pressure is still elevated. Please take 40 mg of lisinopril every day which is 2x 20 mg tablets. Please check your blood pressure 3 times per day in the morning noon and night. Please follow-up closely with your primary care provider for reassessment of your blood pressure needs. If you notice any worsening of your symptoms, or any new symptoms such as vomiting, diarrhea, fever, chills, shortness of breath, chest pain, numbness, weakness, or fainting , please return immediately to the emergency department for reevaluation. Please follow up with your primary care provider as soon as possible for reassessment and reevaluation. As always, it was a pleasure participating in your medical care today. Referrals: Mela Barron NP [Primary Care Provider] - HPI General Date/Time Provider Initiated Documentation: 10/14/23 22:52 . HPI Narrative: This is a 43-year-old female with a past medical history of hypothyroidism, hypertension, who currently has the Mirena device, who does not smoke, who presents today for evaluation of chest pain. Patient states that she is currently going through divorce, and is having a significant amount of stress noted in her life. At around [address] she noticed sudden significant left upper chest pain which she describes as sharp and stabbing. It is worse when she breathes or takes a deep breath or coughs. It does not radiate anywhere else. She denies any tearing or ripping sensation. No arm neck or shoulder pain. She denies vomiting or diarrhea. She has had a mild cough over the last few days. She denies fever or chills. She denies history of blood clots or PE. She denies any recent long trips surgeries flights or procedures. She denies any calf pain or tenderness. She denies any recent alcohol use, or spicy foods. She has not had pain like this before. No other complaints at this time. And there is no positional component. She denies any hemoptysis. Related Data Home Medications ?Medication ?Instructions ?Recorded ?Confirmed aadisqe-sjzjxesffdnev-jsvhlzsy 250 1 ea PO PRN 02/22/15 10/14/23 mg-250 mg-65 mg tablet (Excedrin Migraine) melatonin 1 mg tablet 2 mg PO HS PRN 12/28/21 10/14/23 fluticasone propionate 50 2 spray intranasal DAILY #16 grams 12/24/22 10/14/23 mcg/actuation nasal spray,suspension levothyroxine 200 mcg tablet 200 mcg PO DAILY #90 tab-caps 05/13/23 10/14/23 citalopram 40 mg tablet 40 mg PO DAILY #90 tabs 07/28/23 10/14/23 trazodone 50 mg tablet See Rx Instructions PO QHS PRN 07/28/23 10/14/23 sleep #60 tabs hydrochlorothiazide 25 mg tablet 25 mg PO DAILY AM #90 tab-caps 08/11/23 10/14/23 lisinopril 20 mg tablet 20 mg PO DAILY #30 tabs 08/26/23 10/14/23 Previous Rx's ?Medication ?Instructions ?Recorded fluticasone propionate 50 2 spray intranasal DAILY #16 grams 12/24/22 mcg/actuation nasal spray,suspension levothyroxine 200 mcg tablet 200 mcg PO DAILY #90 tab-caps 05/13/23 citalopram 40 mg tablet 40 mg PO DAILY #90 tabs 07/28/23 trazodone 50 mg tablet See Rx Instructions PO QHS PRN 07/28/23 sleep #60 tabs hydrochlorothiazide 25 mg tablet 25 mg PO DAILY AM #90 tab-caps 08/11/23 lisinopril 20 mg tablet 20 mg PO DAILY #30 tabs 08/26/23 Allergies Allergy/AdvReac Type Severity Reaction Status Date / Time amlodipine AdvReac Intermediate Bilateral Verified 10/14/23 22:59 L.E. Edema General Stated Complaint: Chest Pain MAYDA: 3 Review of Systems All systems reviewed & are unremarkable except as noted in HPI and below Exam Narrative Exam Narrative: 1.Const: Well-nourished, Well-developed, appearing stated age 2.Eyes: PERRL, no conjunctival injection, and symmetrical lids. 3.ENT: Atraumatic external nose and ears. Moist MM. Neck: Symmetric, trachea midline, No thyromegaly. 4.CVS: +S1/S2, No murmurs or gallops. Peripheral pulses 2+ and equal in all extremities. Brisk capillary refill in all extremities. 5.RESP: Unlabored respiratory effort. Clear to auscultation bilaterally. No wheezes rales or rhonchi. On palpation of the left upper anterior chest wall the patient does have resolution of her symptoms with mild pressure that is applied. 6.GI: Soft, Nontender/Nondistended, No hepatosplenomegaly. No guarding or rebound. 7.MSK: Normocephalic/Atraumatic, Extremities w/o deformity or ttp No cyanosis or clubbing, Normal movement of all extremities 8.Skin: Warm, Dry. No rashes or lesions. 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 Sensation grossly intact, no focal neurologic deficits. 10.Psych: (AAO) x3. Appropriate mood and affect Course Vital Signs Vital signs: Vital Signs Temperature 36.4 C 10/14/23 22:54 Pulse 72 10/14/23 22:54 Respiratory Rate 16 10/14/23 22:54 Blood Pressure 193/118 H 10/14/23 22:54 Pulse Oximetry 98 10/14/23 22:54 Temperature 36.4 C 10/14/23 22:54 Temperature Source Temporal Artery Scan 10/14/23 22:54 Pulse 72 10/14/23 22:54 Respiratory Rate 16 10/14/23 23:01 Respiratory Effort Normal 10/14/23 23:01 Respiratory Depth Normal 10/14/23 23:01 Respiratory Pattern Normal 10/14/23 23:01 Blood Pressure 193/118 H 10/14/23 22:54 Pulse Oximetry 98 10/14/23 22:54 Oxygen Delivery Method Room Air 10/14/23 22:54 Oxygen Flow Rate 0 10/14/23 22:54 Pain Level 5 10/14/23 22:54 Lab/Test Results Lab/Test Results: Laboratory Tests Range/Units 10/14/23 23:10 WBC (4.4-10.8) 10^3/uL 8.17 RBC (3.93-5.22) 10^6/uL 4.32 Hgb (11.2-15.7) g/dL 12.6 Hct (36.0-46.0) % 37.3 MCV (80-95) fL 86 MCH (27.0-33.0) pg 29.2 MCHC (32.0-36.0) % 33.8 RDW (11.7-14.6) % 12.1 Plt Count (130-400) 10^3/uL 239 MPV (8.0-11.0) fL 10.2 Immature Gran % % 0.4 Neutrophils % % 50.8 Lymphocytes % % 38.3 Monocytes % % 8.6 Eosinophils % % 1.7 Basophils % % 0.2 Nucleated RBC % (0.0-0.3) % 0.0 Absolute Neutrophils (1.2-6.7) 10^3/uL 4.15 Absolute Lymphocytes (1.2-3.4) 10^3/uL 3.13 Absolute Monocytes (0.1-0.8) 10^3/uL 0.70 Absolute Eosinophils (0.0-0.7) 10^3/uL 0.14 Absolute Basophils (0.0-0.2) 10^3/uL 0.02 Medical Decision Making This is a 43-year-old female with a past medical history of hypothyr oidism, hypertension, who currently has the Mirena device, who does not smoke, who presents today for evaluation of chest pain. Patient states that she is currently going through divorce, and is having a significant amount of stress noted in her life. At around [address] she noticed sudden significant left upper chest pain which she describes as sharp and stabbing. It is worse when she breathes or takes a deep breath or coughs. It does not radiate anywhere else. She denies any tearing or ripping sensation. No arm neck or shoulder pain. She denies vomiting or diarrhea. She has had a mild cough over the last few days. She denies fever or chills. She denies history of blood clots or PE. She denies any recent long trips surgeries flights or procedures. She denies any calf pain or tenderness. She denies any recent alcohol use, or spicy foods. She has not had pain like this before. No other complaints at this time. And there is no positional component. She denies any hemoptysis. Physical exam demonstrates well-appearing female, no hypoxemia. She is hypertensive at 193/118 initially on arrival, however this went down shortly afterwards. Chest pain is atypical, the pain improves/resolves when pressure is applied to the left anterior chest wall. Bedside ultrasound shows no evidence of pneumothorax, tension pneumothorax, pericardial tamponade or effusion. Good cardiac wall motion is noted. EKG is benign. Differential is less likely but does include PE, less likely dissection. Musculoskeletal strain is on the differential. Mild pneumonia is of concern. Anxiety certainly a component as well. Will monitor the patient closely, evaluate for these concerning etiologies and reassess. EKG: Sinus rhythm, no significant ST elevation or depression. Inverted T wave in V2, small Q-wave in lead III, no STEMI. These findings of the Q wave appear unchanged since 08/09/2023. 1:05 AM On reassessment patient is feeling much better. Chest pain is notably improved, blood pressure has gone back down to normal. Laboratory workup shows no white count or bandemia, electrolytes stable, renal function stable. Troponin normal, proBNP normal showing no signs of heart strain. Lipase normal. Still pending CT/CTA results. Patient otherwise feels well. Will continue to monitor closely. 2:[address]/CTA has returned unremarkable. There is a small low-density lesion in the adrenal gland with no recommendations for follow-up. No evidence of PE dissection or other abnormality. Symptoms inconsistent with dissection, ACS, PE, tension pneumothorax, pneumonia or mass. Repeat troponin has returned normal. Patient still does admit to mild chest achiness in that area which is resolved with pressure, but no other significant pain. Patient does have an improvement of her blood pressure, however she still does have mild hypertension still. We had a discussion of this, and the patient has seemed to have problems when starting other additional medications. At this time we will recommend increase of her lisinopril to 40 mg daily. We will recommend 3 times per day blood pressure checks, and close follow-up with PCP for reevaluation of blood pressure and potential medication change. Discussed red flags for which to return. I have extensively reviewed the treatment plan and discharge instructions with the patient. I have addressed all patient concerns at this time. The patient was made aware of what symptoms to monitor for that would warrant a return to the emergency department. Discussed the plan with the patient, they demonstrate verbal understanding and agreement with our assessment and plan at this time. The documentation in this chart was dictated using [employer] dictation software. Please excuse any dictation errors. FINDINGS: Pulmonary arteries: No evidence of pulmonary embolism. Aorta: Unremarkable. No aortic aneurysm. No aortic dissection. Lungs: No infiltrates. No mass lesion or nodule seen. Pleural spaces: Unremarkable. No pneumothorax. No pleural effusion. Heart: Unremarkable. No cardiomegaly. No pericardial effusion. Lymph nodes: Unremarkable. No enlarged lymph nodes. Bones/joints: 2.2 x 1.7 cm low-density lesion in left adrenal gland T8 findings consistent with an adenoma.This lesion appears benign. No followup imaging is recommended. Soft tissues: Unremarkable. IMPRESSION: 1. No evidence of acute pathology. 2. No evidence of pulmonary embolism. Thank you for allowing us to participate in the care of your patient. Dictated and Authenticated by: Beatrice Hair MD 10/15/2023 2:32 AM Eastern Time ([place] & [place]) Quality:SDOH Health Related Social Needs: No Data to Display PFSH All Active Problems (Updated 10/15/23 @ 01:07 by Matty Coe DO) Left-sided chest wall pain (Acute) Right carpal tunnel syndrome (Acute) s/p ECTR 05/01/21 Essential hypertension (Chronic 2008) Hypothyroidism (Chronic 02/16/13) VAUGHN age 19 08/24/13 pt states dose is 200mcg/day. TSH 9.6. Additional dose of 25mcg/day ordered. Needs TSH in 6w. TPO antibodies (+), requiring high dose of levothyroxine Low back pain (Chronic 02/16/13) Since 20s; 10/04/2015 B/L L5-S1 facet inj (Dr. 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 Silveira) Knee pain (Acute 02/16/13) Medical History Herniation of intervertebral disc of thoracic region COVID-19 01/23/21- body aches, lost sense of taste, headache. Is at 8 week bharat 03/20/21 History of anesthesia problem Pt. states she had a failed spinal last , and required general anesthesia last time. H/O radioactive iodine thyroid ablation Lump of axilla Hyperlipidemia (09/17/17) Resolved with 07/2018 lipid panel Hypothyroid in , antepartum s/p Radioactive Iodine Ablation. Initial dose of Synthroid in 175mcg. Increased to 225mcg on 08/18/13 Surgical History Left carpal tunnel syndrome S/P ECTR: 03/20/2021 S/P repeat low transverse Hx of wisdom tooth extraction Per pt. states she required an extensive amount of novacaine because she stated she felt everything. Tympanoplasty I section 2000 [place]. Breech 2008 [place]. Elective repeat 02/02/14-repeat Adenoidectomy Family History Mother Rheumatoid arthritis Graves disease Fibromyalgia Hypertension Father Throat cancer Gallstones Colon cancer Social History Smoking/Tobacco Use Status: Never Second Hand Exposure: No Smoking risk assessment performed?: Yes Alcohol Intake: never Drug use: Never Substance use type: does not use Caregiver/Support person: No Household members: spouse and children Number of Children: 4 Communication Needs: None current occupation: [employer] Pets and animals: Yes Pets and animals: dog(s) and other Details: 2 ducks Sexually active: Yes Do you think of yourself as: straight/heterosexual Current gender identity: female What is your relationship status?: How often do you talk on the phone with friends or family?: twice per week How often do you get together with friends or relatives?: three or more times per week Panel score (0-1 are the most socially isolated patients): 2 What type of physical activity do you participate in: walking, aerobic, regular exercise, weight lifting and resistance training Duration: 45-60 minutes/day Frequency: daily Ginna/Mu-Ism: Adventism Special ginna needs: No Seatbelt use: always Helmet use: Yes Drive intox or ride w/intox taxi truck driver: No Water heater temp set <120 deg: Yes Working smoke detector in home: Yes Fire extinguisher in home: Yes Carbon monox detector in home: Yes Firearms in home: Yes Do you feel safe at home: Yes Do you feel safe in your relationship?: Yes History History 4 Para 4 Hx # Term Pregnancies 4 Multiple births 0 Hx # Pregnancies 0 Ectopic pregnancies 0 AB induced 0 Hx Number of Living Children 4 AB spontaneous 0 Past Pregnancies Del. Date GA/Weeks # Preg Succ Route Wgt Sex Labor Lgth Anesth esia Location [facility] 04/28/00 39 No 3316.894 g Male w/o ,breech [facility]. 01/09/09 39 No 3855.535 g Male 0 [facility]. 02/02/14 39 No 3316.894 g Female 0 [facility] Dr. Lombardi 12/22/19 37 No 3160.008 g Male Delivery Date: 04/28/00 Last Updated by: Chastity Squires CNM c/s for breech. Delivery Date: 01/09/09 Last Updated by: Chastity Squires CNM repeat c/s. Delivery Date: 02/02/14 Last Updated by: Lexii Stephens M.D. repeat c/s. Spinal not effective and general anesthesia POCUS Exam (ED) Limited Cardiac Exam DATE OF EXAM: 10/15/23 TIME OF EXAM: 00:17 PROVIDER THAT PERFORMED THE STUDY: Matty Coe IS THIS A REPEAT EXAM DURING THIS ENCOUNTER: no REASON FOR EXAM: Chest pain VISUALIZED STRUCTURES: Left atrium, Left ventricle, Right ventricle, Aortic valve, Mitral valve and Interventricular septum VIEW OBTAINED: Parasternal long-axis PERTINENT FINDINGS/IMPRESSION: No apparent abnormalities Exam complete Limited Thoracic Lung Exam DATE OF EXAM: 10/15/23 TIME OF EXAM: 00:17 PROVIDER THAT PERFORMED THE STUDY: Matty Coe IS THIS A REPEAT EXAM DURING THIS ENCOUNTER: No REASON FOR EXAM: Shortness ofBreath VISUALIZED STRUCTURES: right anterior and left anterior PERTINENT FINDINGS/IMPRESSION: lung sliding left side and lung sliding left side Exam complete
[2023-10-14 23:40] LABS: PTT Activated 25.2 sec (23.6-32.8); Prothrombin Time 10.4 sec (9.1-11.1)
[2023-10-14 23:51] LABS: ALT 24 U/L (14-59); AST 9 U/L (15-37); Albumin 3.6 g/dL (3.4-5.0); Alkaline Phosphatase 56 U/L (46-116); Anion Gap 9.4 mmol/L (3-11); BUN 15 mg/dL (7-18); Bilirubin, Total 0.17 mg/dL (0.2-1.0); CO2 30.6 mmol/L (21.0-32.0); CREATININE 0.8 mg/dL (0.55-1.02); Calcium 8.3 mg/dL (8.5-10.1); Chloride 104 mmol/L (98-107); Glucose 113 mg/dL (74-106); Lipase 75 U/L (16-77); NT-proBNP 188 pg/mL (<300); Potassium 3.3 mmol/L (3.5-5.1); Sodium 144 mmol/L (136-145); Total Protein 6.9 g/dL (6.4-8.2); Troponin I < 50 ng/L (< or =60)
[2023-10-15] VITALS (25 sets, daily range): BP systolic 139–210; BP diastolic 80–119; PULSE 56–79; RESP 15–25; O2SAT 94–100
[2023-10-15] MEDS: Normal Saline - Diluent 50 ML VIAL IJ (01:00)
--- NOTE | 2023-10-15 02:32 | DI.VRAD_ITS ---
PROCEDURE INFORMATION: Exam: CTA Chest With Contrast Exam date and time: 10/15/2023 1:05 AM Age: 43 years old Clinical indication: Other: Left stabbing pleuritic cp, eval for clot/dissecti TECHNIQUE: Imaging protocol: Computed tomographic angiography of the chest with contrast. Exam focused on the arteries. 3D rendering (Not supervised by radiologist): MIP and/or 3D reconstructed images were created by the technologist. Radiation optimization: All CT scans at this facility use at least one of these dose optimization techniques: automated exposure control; mA and/or kV adjustment per patient size (includes targeted exams where dose is matched to clinical indication); or iterative reconstruction. Contrast material: [id number]; Contrast volume: 100 ml; Contrast route: INTRAVENOUS (IV); COMPARISON: CR XR CHEST 2V PA LATERAL 08/09/2023 5:09 PM FINDINGS: Pulmonary arteries: No evidence of pulmonary embolism. Aorta: Unremarkable. No aortic aneurysm. No aortic dissection. Lungs: No infiltrates. No mass lesion or nodule seen. Pleural spaces: Unremarkable. No pneumothorax. No pleural effusion. Heart: Unremarkable. No cardiomegaly. No pericardial effusion. Lymph nodes: Unremarkable. No enlarged lymph nodes. Bones/joints: 2.2 x 1.7 cm low-density lesion in left adrenal gland T8 findings consistent with an adenoma.This lesion appears benign. No followup imaging is recommended. Soft tissues: Unremarkable. IMPRESSION: 1. No evidence of acute pathology. 2. No evidence of pulmonary embolism. Dictated and Authenticated by: Beatrice Hair MD. Ordering:NOELLE Starr MD
[2023-10-15 02:43] LABS: Troponin I < 50 ng/L (< or =60)
== END 2023-10-15 03:03 | disposition home or self-care (01) ==
PROVIDERS: Emergency Provider Student in an Organized Health Care Education/Training Program; PCP Nurse Practitioner Family
DX: R07.89 Other chest pain (principal); E03.9 Hypothyroidism, unspecified; I10 Essential (primary) hypertension
CPT/HCPCS: 36415; 71275; 76604; 80053; 81025; 83690; 93005; 93308; 96360; 96361; 99285; 83880; 84484; 85025; 85610; 85730; 93010; 99284

== ENCOUNTER 2024-05-26 02:31 | Outpatient (CLI) | payer MEDICAID, SELFPAY ==
--- NOTE | 2024-05-26 07:30 | DI.MAMMO_ITS ---
Exam(s) MAMMO SCREENING EXAM: MAMMO SCREENING CLINICAL HISTORY: screening,z12.39. TECHNIQUE: Bilateral full field digital CC and MLO mammographic images were obtained with 3D tomosyn thesis and utilizing computer aided detection (CAD). COMPARISON: Prior baseline mammogram performed January 13 FINDINGS: There has been no significant change in the appearance and distribution of the fibroglandular tissue. Asymmetric densities in both breasts are unchanged from prior mammogram. There are no new spiculated masses nor new malignant appearing microcalcification groups. There is no significant architectural distortion nor skin thickening-retraction. IMPRESSION: No radiographic evidence of malignancy. BI-RADS Category 1 - Negative Breast Density - Category B - Scattered areas of fibroglandular density Breast density Category C or D implies that the patient has dense breast tissue. Dense breast tissue can make it harder to find cancer on a mammogram. Dense breast tissue is also associated with an incr eased risk of breast cancer. This information about the result of the mammogram report was provided to the patient to raise their awareness. Use this report when you speak with the patient about their risks for breast cancer, which includes their family history. At that time, you may recommend additional screening tests (Ultrasoun d or MRI) as these tests may add significant information. A negative radiographic report should not delay biopsy if a dominant or clinically suspicious mass is present. Up to ten percent of cancers are not identified on mammography. A negative report may reinforce clinical impression. Adenosis and dense breasts may obscure an underlying neoplasm. False positive reports average 6 to 10%. Patient will receive a letter notifying them of these results.
== END 2024-05-26 02:51 ==
LOC: DI 02:31
PROVIDERS: PCP Nurse Practitioner; Visit Provider Nurse Practitioner
DX: Z12.31 Encounter for screening mammogram for malignant neoplasm of breast (principal); R92.323 Mammographic fibroglandular density, bilateral breasts
CPT/HCPCS: 77063; 77067

== ENCOUNTER 2024-07-27 00:22 | Outpatient (CLI) | payer MEDICAID, SELFPAY ==
--- NOTE | 2024-07-27 07:15 | DI.RAD_ITS ---
Exam(s) XR FOOT LT COMPLETE XR FOOT RT COMPLETE EXAM: XR FOOT RT COMPLETE CLINICAL HISTORY: rt foot pain,m79.671. TECHNIQUE: 2D digital imaging was performed. Three views of both feet. COMPARISON: CR XR FOOT LT COMPLETE from 07/27/2024 FINDINGS: BONES: No acute fracture is present. No bony destructive lesion is seen. Bilateral heel spurs. JOINTS: No dislocation present. Mild degenerative changes at the talonavicular joints. The plantar arches are maintained. SOFT TISSUE: Normal. IMPRESSION: Bilateral heel spurs. Mild degenerative changes at the talonavicular joints. DATA REPOSITORY: RADIATION DOSE DELIVERED:
== END 2024-07-27 00:42 ==
LOC: DI 00:23
PROVIDERS: PCP Nurse Practitioner; Visit Provider Podiatrist
DX: M79.671 Pain in right foot (principal); M79.672 Pain in left foot
CPT/HCPCS: 73630

== ENCOUNTER 2025-01-03 02:02 | Outpatient (CLI) | payer MEDICAID, SELFPAY ==
--- NOTE | 2025-01-03 07:10 | DI.US_ITS ---
Exam(s) US ABDOMEN LIMITED EXAM: US ABDOMEN LIMITED CLINICAL HISTORY: ? gallbladder disease (nonurgent) TECHNIQUE: Ultrasound of the right upper quadrant performed using standard protocol. COMPARISON: CT CT CHEST PE CTA from 10/15/2023 FINDINGS: LIVER: Mildly increased in echogenicity consistent with mild hepatic steatosis. Mildly enlarged at 19.4 cm in length. No focal liver lesions are seen. GALLBLADDER: No evidence of cholelithiasis. No evidence of wall thickening. No pericholecystic fluid identified. MARSHALL'S SIGN: Negative. BILIARY SYSTEM: No intrahepatic or extrahepatic biliary ductal dilation. RIGHT KIDNEY: Normal size. No evidence of renal calculi. No evidence of hydronephrosis. No suspicious renal mass. No cyst identified. PANCREAS: Normal where visualized. ABDOMINAL AORTA AND IVC: Visualized portions normal caliber. ASCITES: None seen. IMPRESSION: Mildly enlarged liver with mild hepatic steatosis. The gallbladder appears normal. DATA REPOSITORY:
== END 2025-01-03 02:22 ==
LOC: DI 02:02
PROVIDERS: PCP Nurse Practitioner; Visit Provider Nurse Practitioner Family
DX: K76.0 Fatty (change of) liver, not elsewhere classified (principal)
CPT/HCPCS: 76705

== ENCOUNTER 2025-01-05 00:06 | Outpatient (CLI) | payer MEDICAID, SELFPAY ==
[2025-01-05 07:58] LABS: ESR 3 mm/hr (0-20)
[2025-01-05 08:07] LABS: Hemoglobin A1C 5.5 % (<5.7)
[2025-01-05 08:46] LABS: ALT 45 U/L (14-59); AST 22 U/L (15-37); Albumin 3.7 g/dL (3.4-5.0); Alkaline Phosphatase 70 U/L (46-116); Anion Gap 9.2 mmol/L (3-11); BUN 17 mg/dL (7-18); Bilirubin, Total 0.5 mg/dL (0.2-1.0); CO2 28.8 mmol/L (21.0-32.0); Calcium 8.7 mg/dL (8.5-10.1); Chloride 102 mmol/L (98-107); Cholesterol 189 mg/dL (<200); Glucose 99 mg/dL (74-106); HDL Cholesterol 52 mg/dL (>or=50); Potassium 4.2 mmol/L (3.5-5.1); Sodium 140 mmol/L (136-145); TSH 3.66 uIU/mL (0.36-3.74); Total Protein 7.0 g/dL (6.4-8.2)
[2025-01-05 08:54] LABS: C-Reactive Protein 0.83 mg/dL (<or=0.5)
== END 2025-01-05 00:07 | disposition home or self-care (01) ==
PROVIDERS: Podiatrist; PCP Nurse Practitioner Family; Visit Provider Nurse Practitioner Family
DX: E03.9 Hypothyroidism, unspecified (principal); Z00.00 Encounter for general adult medical examination without abnormal findings; I10 Essential (primary) hypertension; M25.571 Pain in right ankle and joints of right foot; M25.572 Pain in left ankle and joints of left foot
CPT/HCPCS: 36415; 80053; 80061; 85652; 86200; 83036; 84439; 84443; 86038; 86140; 86431

== ENCOUNTER 2025-02-07 09:42 | Outpatient (REF) | payer MEDICAID, SELFPAY ==
--- NOTE | 2025-02-07 09:30 | PAPFT_PTH ---
PATIENT: Liz Morton LOC: [facility] U#:[id number] AGE/SX: 44/F ROOM: RE02/07/[address]: Heidy Santos DO : 1980 BED: DIS: 02/07/2025 SPEC #: [id number] RECD: 02/07/25 12:48 STATUS: JAMAR REEdison #: [id number] ISHA: 02/07/25 09:[address]: Heidy Santos DEPT: [facility] Cytology RECD BY: Audra Lee ENTERED: 02/07/25 12:48 SP TYPE: PAPFT OTHR DR: Marcy Pedroza APRN Tissues: 1 - CX/ENDOCX FOR PAP SMEARS Procedures: PAP THIN PREP/[facility] Screening Comments: [id number]
== END 2025-02-07 09:43 | disposition home or self-care (01) ==
LOC: LBN 09:42
PROVIDERS: PCP Nurse Practitioner Family; Visit Provider Obstetrics & Gynecology
DX: Z12.4 Encounter for screening for malignant neoplasm of cervix (principal)
CPT/HCPCS: 88142